=== PATIENT | female | born 1955 | race Caucasian/White ===

== ENCOUNTER 2023-09-07 07:52 | Outpatient (OUT) | payer MEDICARE, MEDICAID, SELFPAY ==
--- NOTE | 2023-09-07 08:14 | P.CN_ITS ---
Consult Note: HPI Data of Consult Patient: new to practice Requesting Physician: Jaida Marte NP Primary Care Provider: JAYDA CRUZ Consult Narrative Reason for consult: establish Narrative: Harmony Gee a pleasant 68 year old female presents for evaluation and management of chronic right hip, upper back and low back pain, starting 30+ years ago. Patient was following with Dr Small. Hx of charcot juan ramon tooth syndrome. Pain today 10/10, feels like tons of razors, reports numbness tingling of bilateral hands and legs. Pain increased with all activity, improved with massage and bath. Patient has no imaging available for review, no recent PT. Reports she tried PT many years ago which increased her pain. Patient currently utilizing ibuprofen, tizanidine, gabapentin 600mg BID, and trazadone. She has failed to benefit from cymbalta, amitriptyline, mobic, and baclofen, failed trigger point injections. Per referral prior lumbar and cervical MRI completed 04/29/21 which showed central canal stenosis at C5-6, severe DDD and facet arthropathy of lumbar spine and multilevel stenosis. cc:: CC: Jaida Marte NP Review of Systems ROS Status of ROS 10 or more systems reviewed and unremark able except as noted in history and below Musculoskeletal Reports: back pain, neck pain and extremity pain Exam Narrative Exam Narrative: extreme hypersensitivity to touch Constitutional Documenting provider has reviewed patient's vital signs: yes Common normals: no apparent distress, oriented x3, healthy appearing, alert and well nourished General appearance: anxious HENMT Common normals: normocephalic, hearing grossly normal bilaterally and moist oral mucous membranes Head and scalp: normocephalic Eye Common normals: PERRL Pupil: PERRL Neck & C-Spine Common normals: full ROM General: normal visual inspection Chest Common normals: inspection of chest normal Respiratory Common normals: normal respiratory effort, no retractions and no use of accessory muscles Back & Pelvis Lumbar spine/lower back: pain with ROM, lumbar spinal tenderness, paraspinal muscle tenderness and straight leg raise negative bilaterally Sacroiliac joints: SI joint(s) abnormal Other: right SIJ positive asif(patricks), gaenslens, thigh thrust, compression test decreased sensation to BLE following multiple dermatome patterns strength 3.5/5 in BLE Extremity Common normals: full ROM Right lower extremity: hip joint Left lower extremity: hip joint Other: decreased sensation to BLE severe pain with internal and external log roll bilaterally Neuro Common normals: oriented x3, CN's II-XII intact bilaterally, moves all extremities, no focal motor deficits and deep tendon reflexes 2+ bilaterally Sensorium/orientation: alert Motor exam: no movement abnormalities noted and strength abnormal (3.5/5 in BUE and BLE ) Psych Common normals: mental status grossly normal, thought process normal, cooperative, affect normal and speech normal Speech: normal speech Thought process: normal thought process Results Additional Findings Additional findings: If on a controlled substance or opioids, I have checked an [place]AR[place] report on this patient and there are no aberrancies noted in the prescribing history.??If on a controlled substance or opioid a drug screen was completed and reviewed within the last year, and if there has not been a drug screen completed we ordered one today to monitor higher risk, state monitored pain medication use. As part of providing excellent, safe, comprehensive care, the following was completed at our patient's visit: 1. A medication reconciliation and review to ensure accurate knowledge of current/active medications, including asking our patients to inform us about any [id number] medications or herbal remedies/nutritional supplements/alternative remedies. 2. A review to specifically ensure our patients have had annual screening for screening for depression, screening for tobacco use, and screening for unhealthy alcohol use. For concerning screenings had a discussion with the patient, provided patient education, and recommended follow-up with primary care provider when appropriate. If patient noted with a risk of falling, they received education on strength, gait, and balance training to prevent future risk of falling. Assessment and Plan Assessment and Plan (1) Lumbar radiculopathy: (2) Lumbar stenosis with neurogenic claudication: (3) Sacroiliitis: (4) Bilateral hip pain: Plan cannot tolerate PT due to severe pain, based on weakness pain pattern imaging of lumbar spine and failure to respond to conservative measures i am recommending bilateral L5-S1 TFESI followed by right SIJ injection under fluoroscopy. risks vs benefits reviewed continue medications through neurology and PCP f/u 2 weeks after injections complete
== END 2023-09-07 07:53 | disposition home or self-care (01) ==
PROVIDERS: PCP Nurse Practitioner; Visit Provider Nurse Practitioner
DX: M54.16 Radiculopathy, lumbar region (principal); M48.062 Spinal stenosis, lumbar region with neurogenic claudication; M46.1 Sacroiliitis, not elsewhere classified; M25.551 Pain in right hip; M25.552 Pain in left hip
CPT/HCPCS: G0463

== ENCOUNTER 2023-09-09 07:31 | Outpatient (OUT) | payer MEDICARE, MEDICAID, SELFPAY ==
--- NOTE | 2023-09-09 07:41 | XR_ITS ---
The [address] [address] Patient Name: ZULEMA GARCIA MRN: [id number] date: 1955 Sex: F Assigned Patient Location: [facility] Current Patient Location: Accession/Order Number: [id number] Exam Date: 09/09/2023 07:50 Report Date: 09/12/2023 07:17 At the request of: TAMAR HARMON Procedure: XR hip AGUS EXAMINATION: XR hip AGUS HISTORY: Bilateral Hip Pain, Lumbar Radiculopathy COMPARISON: No relevant comparison available. FINDINGS: RIGHT FINDINGS: BONES: Normal. No significant arthropathy or acute abnormality. SOFT TISSUES: Negative. No visible soft tissue swelling. OTHER: Negative. LEFT FINDINGS: BONES: Normal. No significant arthropathy or acute abnormality. SOFT TISSUES: Negative. No visible soft tissue swelling. OTHER: Negative. XR/XR hip AGUS IMPRESSION: No acute abnormality of the hips Electronically authenticated by: GAGE JUDD Date: 09/12/2023 07:17
--- NOTE | 2023-09-09 07:41 | XR_ITS ---
The [place] [id number] Patient Name: ZULEMA GARCIA MRN: [id number] date: 1955 Sex: F Assigned Patient Location: [facility] Current Patient Location: [facility] Accession/Order Number: [id number] Exam Date: 09/09/2023 07:50 Report Date: 09/12/2023 11:03 At the request of: TAMAR HARMON Procedure: XR lumbar spine 6V w bending EXAMINATION: XR lumbar spine 6V w bending HISTORY: Bilateral Hip Pain, Lumbar Radiculopathy COMPARISON: No relevant comparison available. FINDINGS: BONES: 10 mm anterolisthesis of L5 in relation S1. Mild levocurvature centered at L2-L3. Mild degenerative spondylosis. Moderate facet osteoarthropathy DISC SPACES: Disc collapse L5-S1 PARASPINOUS: Negative. No paraspinous abnormality is seen. OTHER: increase in anterolisthesis of L5 on S1 to 12 mm with flexion, stable with extension XR/XR lumbar spine 6V w bending IMPRESSION: Grade 2 anterolisthesis of L5 with dynamic instability during flexion Electronically authenticated by: GAGE JUDD Date: 09/12/2023 11:03
== END 2023-09-09 07:32 | disposition home or self-care (01) ==
LOC: RAD 07:33
PROVIDERS: PCP Nurse Practitioner; Visit Provider Nurse Practitioner
DX: M25.551 Pain in right hip (principal); M25.552 Pain in left hip; M54.16 Radiculopathy, lumbar region; M47.816 Spondylosis without myelopathy or radiculopathy, lumbar region
CPT/HCPCS: 72114; 73522

== ENCOUNTER 2023-10-13 09:29 | Observation (INO) | payer MEDICARE, MEDICAID, SELFPAY ==
[2023-10-13] VITALS (23 sets, daily range): BP systolic 107–178; BP diastolic 66–101; PULSE 102–120; TEMP 36.2–36.8; O2SAT 94–97; BMI 21.6; BMI 14.1
--- NOTE | 2023-10-13 09:41 | ECG_ITS ---
The [facility] Test Date: 2023-10-13 Pat Name: ZULEMA GARCIA Department: Room: - Gender: Female Label Tacker: : 1955 Requested By: Bea Palumbo Order Number: [id number] Reading MD: WADE JERRY Measurements Intervals [place] Rate: 104 P: -[id number] UT: -08982 QRS: 97 QRSD: 178 T: 57 QT: 408 QTc: 468 Interpretive Statements 1921 Undetermined regular rhythm (tachycardia) 2330 Nonspecific intraventricular conduction block 7102 Moderate right axis deviation 9150 abnormal ECG Compared to ECG 05/13/2022 12:34:31 Electronically Signed On 10-13-2023 21:30:50 EDT by WADE JERRY
--- NOTE | 2023-10-13 09:46 | ED_ITS ---
HPI HPI - General Adult General Chief complaint: Anxiety Stated complaint: SHORTNESS OF BREATH/ GENERAL WEAKNESS Time Seen by Provider: 10/13/23 09:31 Source: patient Mode of arrival: walk-in Limitations: no limitations History of Present Illness HPI narrative: 68-year-old female presents to the emergency department for chief complaint of difficulty breathing. She is brought in by squad who administered her an aerosol treatment. She states her legs always hurt and she has some sort of a condition and she does not know what it is but it is chronic. She also complains of a sore throat and does not know if she has been taking her medications or not. Related Data Home Medications ?Medication ?Instructions ?Recorded ?Confirmed famotidine 10 mg tablet (Pepcid AC) 10 mg PO DAILY 09/07/23 10/13/23 gabapentin 600 mg tablet 600 mg PO TID 09/07/23 10/13/23 ibuprofen 400 mg tablet 400 mg PO QAM 09/07/23 09/07/23 levothyroxine 75 mcg tablet 75 mcg PO DAILY 09/07/23 10/13/23 (Synthroid) montelukast 10 mg tablet 10 mg PO DAILY 09/07/23 10/13/23 (Singulair) budesonide-formoterol HFA 80 2 puff inhalation Q12H 10/13/23 10/13/23 mcg-4.5 mcg/actuation aerosol inhaler (Symbicort) tizanidine 4 mg tablet 8 mg PO BEDTIME 10/13/23 10/13/23 trazodone 150 mg tablet 150 mg PO BEDTIME 10/13/23 10/13/23 Allergies Allergy/AdvReac Type Severity Reaction Status Date / Time latex Allergy Unknown Rash Verified 09/07/23 08:58 Opioid HPI Opioid Management Most Recent Opioid Data: No Data to Display Review of Systems ROS Narrative A ten point review of systems is negative except as noted above. Exam Narrative Exam Narrative: Nurses note and vital signs reviewed and patient is not hypoxic. General: The patient appears anxious, she is mildly tremorous Skin: Warm, dry, no pallor noted. There is no rash noted. Head: Normocephalic, atraumatic Eye: Normal conjunctiva, no drainage Ears, Nose, Mouth, and Throat: oral mucosa is moist. There appears to be white coating to the posterior soft palate. Uvula midline. Cardiovascular: Regular Rate and Rhythm, mildly tachycardic Respiratory: Patient is in no distress, no accessory muscle use, lungs are clear to auscultation, no wheezing, rales or rhonchi Back: non-tender GI: Soft and nontender Musculoskeletal: The patient has no evidence of calf tenderness, no pitting edema, symmetrical pulses noted bilaterally Neurological: Awake and alert, tremorous Psychiatric: Cooperative Constitutional Vital Signs, click to edit/add: Last Vital Signs Temp 98.2 F 10/13/23 09:35 Pulse 104 H 10/13/23 10:53 Resp 19 10/13/23 10:00 BP 107/75 10/13/23 11:22 Pulse Ox 94 L 10/13/23 12:00 O2 Del Method Room Air 10/13/23 09:35 Course Vital Signs Vital signs: Vital Signs Pulse Rate 105 H 10/13/23 09:34 Respiratory Rate 20 10/13/23 09:34 Blood Pressure 178/86 H 10/13/23 09:34 Pulse Oximetry 97 10/13/23 09:34 Temperature 98.2 F 10/13/23 09:35 Pulse Rate 104 H 10/13/23 10:53 Respiratory Rate 19 10/13/23 10:00 Blood Pressure 107/75 10/13/23 11:22 Pulse Oximetry 94 L 10/13/23 12:00 Oxygen Delivery Method Room Air 10/13/23 09:35 Medical Decision Making MDM Narrative Medical decision making narrative: UTI is identified with WBC of 15,000. She was given IV Rocephin and cultures were ordered. She was also given IV Ativan for anxiety. She will be admitted for observation. Physical exam showed what appears to be a white coating on her posterior soft palate area. This could be thrush. It has made it quite difficult for her to eat or drink anything. Differential Diagnosis Differential Diagnosis: UTI, anxiety, dehydration Lab Data Lab results reviewed: Yes I reviewed the patient's lab results Labs: Lab Results 10/13/23 10/13/23 10/13/23 Range/Units 09:53 09:57 10:30 WBC 15.3 H (4.0-11.0) 10^3/uL RBC 4.97 (4.20-5.40) 10^6/uL Hgb 16.1 H (12.0-16.0) g/dL Hct 48.8 H (36.0-48.0) % MCV 98.2 (81.0-99.0) fL MCH 32.4 (26.7-34.0) pg MCHC 33.0 (29.9-35.2) g/dL RDW 12.8 (11.0-15.0) % Plt Count 251 (150-450) 10^3/uL MPV 9.5 (9.5-13.5) fL Neut % (Auto) 87.9 H (43.0-75.0) % Lymph % (Auto) 4.9 L (20.5-60.0) % [place] % (Auto) 6.1 (1.7-12.0) % Eos % (Auto) 0.1 L (0.9-7.0) % Baso % (Auto) 0.4 (0.2-2.0) % Neut # (Auto) 13.4 H (1.4-6.5) 10^3/uL Lymph # (Auto) 0.8 L (1.2-3.8) 10^3/uL [place] # (Auto) 0.9 H (0.3-0.8) 10^3/uL Eos # (Auto) 0.0 (0.0-0.7) 10^3/uL Baso # (Auto) 0.1 (0.0-0.1) 10^3/uL Abs Immat Gran (auto) 0.09 H (0.00-0.03) 10^3/uL Imm/Tot Granulo (auto) 0.6 H (0.0-0.5) % Sodium 141 (136-145) mmol/L Potassium 3.9 (3.5-5.1) mmol/L Chloride 102 (98-107) mmol/L Carbon Dioxide 29.5 (21.0-32.0) mmol/L Anion Gap 13.4 BUN 8.0 (7.0-18.0) mg/dL Creatinine 0.77 (0.55-1.02) mg/dL Est GFR ( Amer) >60 (>=60) Est GFR (Non-Af Amer) >60 (>=60) BUN/Creatinine Ratio 10.4 Glucose 123 H (74-106) mg/dL Calcium 9.1 (8.5-10.1) mg/dL Troponin I High Sens 32.9 (4.0-51.3) pg/mL Urine Color Yellow (YELLOW) Urine Clarity Clear (CLEAR) Urine pH 6.0 (5.0-9.0) Ur Specific [place] >=1.030 A (1.005-1.025) Urine Protein 100 A (NEG/TRACE) mg/dL Urine Glucose (UA) Negative (NEGATIVE) mg/dL Urine Ketones >=80 A (NEGATIVE) mg/dL Urine Occult Blood Negative (NEGATIVE) Urine Nitrite Negative (NEGATIVE) Urine Bilirubin Small A (NEGATIVE) Urine Urobilinogen 1.0 (0.2-1.0) EU/dL Ur Leukocyte Esterase Moderate A (NEGATIVE) Urine RBC None seen (0-2) #/HPF Urine WBC 10-20 A (NONE SEEN) #/HPF Ur Squamous Epith Cells Few A (NONE/RARE) #/LPF Urine Bacteria Moderate A (NONE SEEN) #/HPF Urine Mucus Moderate A (NONE SEEN) Ur Culture Indicated? Yes Streptococcus Screen Negative Imaging Data Chest x-ray: Radiologist's impression: ITS Impressions Chest X-Ray 10/13/23 09:55 IMPRESSION: 1. No acute cardiopulmonary process. Electronically authenticated by: KETTY MORALES Date: 10/13/2023 10:26 ECG Data Attestation: I personally reviewed and interpreted this ECG as follows: (EKG on my interpretation shows sinus tachycardia with a rate of 104.) Discharge Plan Discharge Chief Complaint: Anxiety Clinical Impression: Urinary tract infection, Leukocytosis, Pharyngitis Patient Disposition: Admitted as Observation Time of Disposition Decision: 13:21 Condition: Good Prescriptions / Home Meds: No Action levothyroxine [Synthroid] 75 mcg tablet 75 mcg PO DAILY gabapentin 600 mg tablet 600 mg PO TID montelukast [Singulair] 10 mg tablet 10 mg PO DAILY famotidine [Pepcid AC] 10 mg tablet 10 mg PO DAILY ibuprofen 400 mg tablet 400 mg PO QAM budesonide-formoterol [Symbicort] 80-4.5 mcg/actuation HFA aerosol inhaler 2 puff INHALATION Q12H tizanidine 4 mg tablet 8 mg PO BEDTIME trazodone 150 mg tablet 150 mg PO BEDTIME Print Language: Upper Sorbian Referrals: JAYDA CRUZ [Primary Care Provider] - 1 week
[2023-10-13] MEDS: LORAZEPAM 2 MG/ML VIAL 0.5 MG IV (09:52)
--- NOTE | 2023-10-13 09:55 | XR_ITS ---
The [address] [address] Patient Name: ZULEMA GARCIA MRN: [id number] date: 1955 Sex: F Assigned Patient Location: ED.MAIN Current Patient Location: ED.MAIN Accession/Order Number: [id number] Exam Date: 10/13/2023 09:50 Report Date: 10/13/2023 10:26 At the request of: RICHARD SMALLS Procedure: XR chest 1V EXAMINATION: XR chest 1V HISTORY: SOB COMPARISON: No relevant comparison available. FINDINGS: LUNGS: Underexpanded lungs. No appreciable infiltrates or nodules. VASCULATURE: No increased pulmonary vasculature. PLEURA: No pneumothorax, effusion, or pleural thickening. CARDIAC: No cardiomegaly or cardiac silhouette abnormality. MEDIASTINUM: No visible mass or adenopathy. BONES: No fracture or visible bone lesion. OTHER: Negative. XR/XR chest 1V IMPRESSION: 1. No acute cardiopulmonary process. Electronically authenticated by: KETTY MORALES Date: 10/13/2023 10:26
--- NOTE | 2023-10-13 09:59 | PC.NURSE ---
Medication given as ordered. Patient apeared to calm down and was joking with senior product engineer and nurse. I asked if she was feeling better and she grabbed her back and started to c/o pain.
[2023-10-13 10:06] LABS: Basophils Absolute Auto 0.1 10^3/uL (0.0-0.1); Basophils Percent Auto 0.4 % (0.2-2.0); Eosinophils Percent Auto 0.1 % (0.9-7.0); Hematocrit 48.8 % (36.0-48.0); Hemoglobin 16.1 g/dL (12.0-16.0); Immature Granulocytes Abs Auto 0.09 10^3/uL (0.00-0.03); Immature Granulocytes Pct Auto 0.6 % (0.0-0.5); Lymphocytes Absolute Auto 0.8 10^3/uL (1.2-3.8); Lymphocytes Percent Auto 4.9 % (20.5-60.0); Mean Corpuscular Hemoglobin 32.4 pg (26.7-34.0); Mean Corpuscular Volume 98.2 fL (81.0-99.0); Mean Platelet Volume 9.5 fL (9.5-13.5); Monocytes Absolute Auto 0.9 10^3/uL (0.3-0.8); Monocytes Percent Auto 6.1 % (1.7-12.0); Neutrophils Absolute Auto 13.4 10^3/uL (1.4-6.5); Neutrophils Percent Auto 87.9 % (43.0-75.0); Platelet Count 251 10^3/uL (150-450); Red Blood Count 4.97 10^6/uL (4.20-5.40); Red Cell Distribution Width 12.8 % (11.0-15.0); White Blood Count 15.3 10^3/uL (4.0-11.0)
[2023-10-13 10:21] LABS: Internal Control Within Normal Limits; Strep A Antigen Screen Negative
[2023-10-13 10:34] LABS: Anion Gap 13.4; BUN Creatinine Ratio 10.4; Calcium 9.1 mg/dL (8.5-10.1); Carbon Dioxide 29.5 mmol/L (21.0-32.0); Chloride 102 mmol/L (98-107); Estimated GFR (African America >60 (>=60); Estimated GFR (Non-African Ame >60 (>=60); Glucose 123 mg/dL (74-106); Potassium 3.9 mmol/L (3.5-5.1); Sodium 141 mmol/L (136-145); Troponin I High Sensitivity 32.9 pg/mL (4.0-51.3)
[2023-10-13 10:36] LABS: Bilirubin Urine SMALL (NEGATIVE); Blood Urine NEGATIVE (NEGATIVE); Clarity Urine CLEAR (CLEAR); Color Urine YELLOW (YELLOW); Glucose Urine UA NEGATIVE (NEGATIVE); Ketones Urine >=80 mg/dL (NEGATIVE); Leukocyte Esterase Urine MODERATE (NEGATIVE); Nitrite Urine NEGATIVE (NEGATIVE); Protein Urine 100 mg/dL (NEG/TRACE); Specific Gravity Urine >=1.030 (1.005-1.025)
[2023-10-13 10:59] LABS: RBC Urine NONE SEEN #/HPF (0-2)
[2023-10-13 11:00] LABS: Bacteria Urine MODERATE #/HPF (NONE SEEN); Mucus Urine MODERATE (NONE SEEN); Squamous Epithelial Cell Urine FEW #/LPF (NONE/RARE)
[2023-10-13 11:04] LABS: Urine Culture Indicated YES
[2023-10-13] MEDS: CEFTRIAXONE 1,000 MG in 0.9 % SODIUM CHLORIDE 50 ML 100 MG IV (11:22)
[2023-10-13] MEDS: KETOROLAC TROMETHAMINE 30 MG/ML VIAL IVP (11:42)
--- NOTE | 2023-10-13 14:51 | PM.HP ---
HPI H&P: HPI History of Present Illness Chief complaint: SHORTNESS OF BREATH/ GENERAL WEAKNESS Narrative: 68-year-old female, who lives by herself presented to ER with multiple problems. She reports sore throat, decreased p.o. intake, cough and shortness of breath for past 1 to 2 weeks. She reports that because of sore throat it is painful for her to swallow and she has not been able to eat normally. She also reports suprapubic discomfort and dysuria for 2 weeks now. She denies fever. Patient is very frail, appears older than her stated age and seems very anxious. She almost jumped out of bed when I touch her feet because her feet hurt due to her history of neuropathy. She is very hard of hearing and its very difficult to communicate with her. Opioid HPI Opioid Management Most Recent Pain and Opioid Data: No Data to Display Review of Systems ROS Status of ROS 10 or more systems reviewed and unremarkable except as noted in history and below PFSH PFS Medical History (Updated 10/13/23 @ 14:57 by Shaikh Michel MD) Peripheral neuropathy ?G62.9 - Polyneuropathy, unspecified (ICD-10) COPD (chronic obstructive pulmonary disease) ?J44.9 - Chronic obstructive pulmonary disease, unspecified (ICD-10) Social History (Updated 10/13/23 @ 14:55 by Shaikh Michel MD) Within the past year, how often did you have a drink containing alcohol: never Within the past year, how many standard drinks containing alcohol did you have on a typical day: 1 or 2 Within the past year, how often did you have six or more drinks on one occasion: never Total score: 0 Score interpretation: A score less than 3 is consistent with normal alcohol consumption. Smoking status: Never smoker Meds Home Medications and Allergies Home Medications ?Medication ?Instructions ?Recorded ?Confirmed ?Type gabapentin 600 mg tablet 600 mg PO BID 09/07/23 10/13/23 History levothyroxine 75 mcg tablet 75 mcg PO DAILY 09/07/23 10/13/23 History (Synthroid) montelukast 10 mg tablet 10 mg PO DAILY 09/07/23 10/13/23 History (Singulair) budesonide-formoterol HFA 80 2 puff inhalation Q12H 10/13/23 10/13/23 History mcg-4.5 mcg/actuation aerosol inhaler (Symbicort) famotidine 20 mg tablet 20 mg PO QAM 10/13/23 10/13/23 History gabapentin 300 mg capsule 300 mg PO DAILY 10/13/23 10/13/23 History tizanidine 4 mg tablet 8 mg PO BEDTIME 10/13/23 10/13/23 History trazodone 150 mg tablet 150 mg PO BEDTIME 10/13/23 10/13/23 History Allergies Allergy/AdvReac Type Severity Reaction Status Date / Time latex Allergy Unknown Rash Verified 09/07/23 08:58 Exam Constitutional Vital Signs, click to edit/add: Last Vital Signs Temp 98.2 F 10/13/23 09:35 Pulse 104 H 10/13/23 10:53 Resp 19 10/13/23 10:00 BP 107/75 10/13/23 11:22 Pulse Ox 94 L 10/13/23 12:00 O2 Del Method Room Air 10/13/23 09:35 Documenting provider has reviewed patient's vital signs: yes Common normals: no apparent distress General appearance: cooperative, comfortable and anxious Nutritional appearance: cachectic and underweight HENPA Common normals: normocephalic and head/scalp atraumatic Head and scalp: normocephalic and atraumatic Other: white exudate noted on tonsillar pillars and post pharyngeal wall. Eye Common normals: conjunctivae normal and no scleral icterus Conjunctiva: conjunctiva(e) normal Respiratory Common normals: normal respiratory effort and clear to auscultation bilaterally Effort & inspection: able to speak in complete sentences Auscultation: clear to auscultation bilaterally Other: Was coughing during exam Cardio Common normals: regular rate, S1 normal heart sound and S2 normal heart sound Rate: regular rate Heart sounds: S1 normal and S2 normal GI Common normals: Normal to inspection, nondistended, normoactive bowel sounds present, soft to palpation, non-tender and no hepatosplenomegaly Palpation: soft and no hepatosplenomegaly Extremity Common normals: no clubbing, cyanosis or edema Neuro Common normals: oriented x3, moves all extremities and no focal motor deficits Psych Common normals: mental status grossly normal, denies hallucinations, denies homicidal ideation and denies suicidal ideation Mood and affect: anxious Results Labs Labs: Short CBC 10/13/23 Range/Units 09:57 WBC 15.3 H (4.0-11.0) 10^3/uL Hgb 16.1 H (12.0-16.0) g/dL Hct 48.8 H (36.0-48.0) % Plt Count 251 (150-450) 10^3/uL BMP 10/13/23 09:57 Sodium 141 Potassium 3.9 Chloride 102 Carbon Dioxide 29.5 BUN 8.0 Creatinine 0.77 Glucose 123 H Calcium 9.1 Urine 10/13/23 Range/Units 10:30 Urine Color Yellow (YELLOW) Urine Clarity Clear (CLEAR) Urine pH 6.0 (5.0-9.0) Ur Specific [place] >=1.030 A (1.005-1.025) Urine Protein 100 A (NEG/TRACE) mg/dL Urine Glucose (UA) Negative (NEGATIVE) mg/dL Assessment and Plan Assessment and Plan (1) Leukocytosis: Assessment and Plan: likely from dehydration, UTI. Started on IVF,rocephine. Qualifiers: Leukocytosis type: leukemoid reaction Qualified Code(s): D72.823 - Leukemoid reaction (2) Urinary tract infection: Assessment and Plan: P/w UTI, started on rocephin. f/u urine cx. Qualifiers: Urinary tract infection type: acute cystitis Hematuria presence: without hematuria Qualified Code(s): N30.00 - Acute cystitis without hematuria (3) Pharyngitis: Assessment and Plan: Sore throat with white patches noted. Possibly thrush. Started on nystatin, fluconazole. Check for covid. Negative for strep. On rocpehin for UTI - that will also cover common bacterial resp pathogens. Qualifiers: Pharyngitis/tonsillitis etiology: unspecified etiology Qualified Code(s): J02.9 - Acute pharyngitis, unspecified (4) COPD (chronic obstructive pulmonary disease): Assessment and Plan: No wheezing/bronchospasm noted. C/w symbicort. Albuterol as needed Qualifiers: COPD type: unspecified COPD Qualified Code(s): J44.9 - Chronic obstructive pulmonary disease, unspecified (5) Peripheral neuropathy: Assessment and Plan: Cw gabapentin Qualifiers: Peripheral neuropathy type: polyneuropathy, unspecified Qualified Code(s): G62.9 - Polyneuropathy, unspecified (6) Oral thrush: Assessment and Plan: Started on nystatin/fluconazole.
--- NOTE | 2023-10-13 16:32 | PC.NURSE ---
pt admitted to icu as overflow. oriented to room and call light. pt appears anxious. pt stated she has been short of breath for 4 days. also states all of my nerve endings are exposed and i have radon poisoning. when asked how pt ambulates, she stated she cannot use an assistive device due to her numbness and tingling in her hands, and she sometimes has to crawl in her appt. pt then states she uses furniture to ambulate. admits to smoking 2 cigarettes every couple of days. also admits to a poor appetite and feels like she had lost weight. bed alarm activated. call light within reach.
--- NOTE | 2023-10-13 16:36 | PC.NURSE ---
pt has white patches on roof of mouth and on the back of her tongue. dr mcginnis notified.
--- NOTE | 2023-10-13 16:46 | PC.NURSE ---
bed alarm ringing, entered room to pt climbing over bottom siderail. pt stated i have to urinate. offered pt bsc, pt agreed due to unsteady gait. assisted pt up to bsc, pt unsteady and weak. pt then asked to go to the bathroom, encouraged to use walker, pt refused. explained to pt, due to high fall risk she should use the bsc, pt then stated i can't go now, asshole. assisted pt back to bed, bed alarm activated.
[2023-10-13] MEDS: FLUCONAZOLE 150 MG TABLET PO (17:12)
[2023-10-13] MEDS: NYSTATIN 500,000 UNIT/5 ML ORAL.SUSP 500000 UNIT PO ×2 (17:12→21:22)
[2023-10-13] MEDS: ENOXAPARIN SODIUM 30 MG/0.3 ML SYRINGE SUBQ (17:12)
[2023-10-13] MEDS: LACTATED RINGER'S SOLUTION 1,000 ML 125 ML IV (17:13)
[2023-10-13 17:39] LABS: Internal Control Within Normal Limits; SARS-CoV-2 Ag NEGATIVE (NEGATIVE)
--- NOTE | 2023-10-13 18:21 | PC.NURSE ---
bed alarm sounding, pt standing up in room, iv pump plugged into wall, attempting to walk to the bathroom. pt unsteady, had crawled over siderails to get out of bed. assisted rest of the way to bathroom. voided and assisted back to bed. pt tells nurse to shut up, i want to go home. attempted to reassure pt, pt stated leave me alone, asshole. bed alarm activated, offered supper, pt refused. pt throwing kleenex on floor, explained to pt a trash bag is on her bedside table for her trash. pt stated asshole. call light within reach.
[2023-10-13] MEDS: ALBUTEROL SULFATE 2.5 MG/3 ML VIAL NEB IH (21:11)
[2023-10-13] MEDS: BUDESONIDE 0.5 MG/2 ML AMPULE NEB IH (21:11)
[2023-10-13] MEDS: TIZANIDINE HCL 4 MG TABLET 8 MG PO (21:21)
[2023-10-13] MEDS: TRAZODONE HCL 50 MG TABLET 150 MG PO (21:21)
[2023-10-13] MEDS: GABAPENTIN 300 MG CAPSULE 600 MG PO (21:22)
[2023-10-14] VITALS (8 sets, daily range): BP systolic 144–159; BP diastolic 69–75; PULSE 94–99; TEMP 36.4–36.6; O2SAT 92–97
[2023-10-14] MEDS: LACTATED RINGER'S SOLUTION 1,000 ML 125 ML IV (01:46)
[2023-10-14] MEDS: ALBUTEROL SULFATE 2.5 MG/3 ML VIAL NEB IH (05:24)
[2023-10-14] MEDS: LEVOTHYROXINE SODIUM 75 MCG TABLET PO (05:34)
[2023-10-14] MEDS: NYSTATIN 500,000 UNIT/5 ML ORAL.SUSP 500000 UNIT PO (05:34)
[2023-10-14] MEDS: OMEPRAZOLE 40 MG CAPSULE.DR PO (05:34)
[2023-10-14 06:01] LABS: Alanine Aminotransferase 16 U/L (14-59); Albumin Globulin Ratio 0.9; Albumin Level 2.4 g/dL (3.4-5.0); Alkaline Phosphatase 65 U/L (46-116); Anion Gap 9.6; Aspartate Amino Transferase 14 U/L (15-37); BUN Creatinine Ratio 22.6; Bilirubin Total 0.4 mg/dL (0.2-1.0); Calcium 8.6 mg/dL (8.5-10.1); Carbon Dioxide 29.5 mmol/L (21.0-32.0); Chloride 105 mmol/L (98-107); Estimated GFR (African America >60 (>=60); Estimated GFR (Non-African Ame >60 (>=60); Globulin 2.8 g/dL; Glucose 127 mg/dL (74-106); Potassium 4.1 mmol/L (3.5-5.1); Sodium 140 mmol/L (136-145); Total Protein 5.2 g/dL (6.4-8.2)
[2023-10-14 07:00] LABS: Hematocrit 42.5 % (36.0-48.0); Mean Corpuscular HGB Conc 32.9 g/dL (29.9-35.2); Mean Corpuscular Hemoglobin 32.1 pg (26.7-34.0); Mean Corpuscular Volume 97.5 fL (81.0-99.0); Mean Platelet Volume 10.1 fL (9.5-13.5); Platelet Count 256 10^3/uL (150-450); Red Blood Count 4.36 10^6/uL (4.20-5.40); Red Cell Distribution Width 12.7 % (11.0-15.0); White Blood Count 13.1 10^3/uL (4.0-11.0)
[2023-10-14 07:36] LABS: Segmented Neut Absolute Manual 11.92 10^3/uL (1.4-6.5)
[2023-10-14 07:37] LABS: Band Neutrophils Absolute 0.3 10^3/uL (0.0-0.3); Lymphocytes Absolute Manual 0.91 10^3/uL (1.20-3.80)
[2023-10-14] MEDS: GABAPENTIN 300 MG CAPSULE 600 MG PO (09:14)
[2023-10-14] MEDS: MONTELUKAST SODIUM 10 MG TABLET PO (09:14)
--- NOTE | 2023-10-14 10:01 | PM.DS1 ---
DS: Providers Provider Date of admission: 10/13/23 15:59 Primary care physician: JAYDA CRUZ Admitting clinician: Shaikh Michel Attending physician on admission: Shaikh Michel Consults: 10/13/23 Consult to Dietitian Routine Reason for consultation: weight loss Has provider been notified: No 10/13/23 13:23 Occupational Therapy Eval and Treat Routine Reason for consultation: Ambulatory dysfunction/weakness Physical Therapy Eval and Treat Routine Reason for consultation: Ambulatory dysfunction/weakness Attending physician on discharge: Shaikh Michel Discharging clinician: Shaikh Michel Anticipated date of discharge: 10/14/23 DS: Diagnosis Discharge Diagnosis (1) Leukocytosis: Assessment and plan: Likely due to UTI and dehydration. Improved. Qualifiers: Leukocytosis type: leukemoid reaction Qualified Code(s): D72.823 - Leukemoid reaction (2) Urinary tract infection: Assessment and plan: Patient presented with dysuria and suprapubic discomfort with abnormal UA. She was treated with IV Rocephin with improvement in her symptoms Qualifiers: Hematuria presence: without hematuria Urinary tract infection type: acute cystitis Qualified Code(s): N30.00 - Acute cystitis without hematuria (3) Pharyngitis: Assessment and plan: Patient reports sore throat and oropharyngeal dysphagia. She likely has oropharyngeal and possibly esophageal candidiasis for which she was treated with fluconazole. She feels a little bit better she also received IV Rocephin for UTI which would also typically cover common respiratory bacterial pathogen. She tested negative for strep and COVID Qualifiers: Pharyngitis/tonsillitis etiology: unspecified etiology Qualified Code(s): J02.9 - Acute pharyngitis, unspecified (4) COPD (chronic obstructive pulmonary disease): Assessment and plan: No evidence of bronchospasm. Continue with home medications Qualifiers: COPD type: unspecified COPD Qualified Code(s): J44.9 - Chronic obstructive pulmonary disease, unspecified (5) Peripheral neuropathy: Assessment and plan: Continue with gabapentin Qualifiers: Peripheral neuropathy type: polyneuropathy, unspecified Qualified Code(s): G62.9 - Polyneuropathy, unspecified (6) Oral thrush: Assessment and plan: Suspect associated esophageal candidiasis. Will need outpatient EGD. Will discharge her on oral fluconazole for 14 days as I suspect she likely has esophageal candidiasis (7) Severe malnutrition: Assessment and plan: Severe in caloric malnutrition with BMI of only 14, with evidence of muscle wasting, loss of subcutaneous tissue. She will benefit from outpatient evaluation to determine the underlying etiology as well as nutrition consult to help improve her nutritional status DS: Summary Hospital Course Hospital Course: 68-year-old female was originally admitted for UTI, oropharyngeal dysphagia/odynophagia with signs and symptoms of dehydration, severe protein caloric malnutrition with BMI of only 14. She was treated with IV hydration and IV Rocephin for UTI. She was also treated with oral fluconazole for oropharyngeal thrush with high suspicion for esophageal candidiasis resulting in oropharyngeal dysphagia/odynophagia. She also was treated with oral nystatin. Earlier today, she feels better compared to her arrival and is medically stable for discharge. We will discharge her on oral Ceftin along with oral fluconazole. She will benefit from outpatient evaluation by nutrition for severe protein caloric malnutrition along with possible GI evaluation for suspected esophageal candidiasis Status at Discharge Overall status at discharge: patient is back to baseline Time Spent with Patient Time attestation: Total time spent providing and/or coordinating discharge services: Exam Constitutional Vital Signs, click to edit/add: Last Vital Signs Temp 97.9 F 10/14/23 07:43 Pulse 99 H 10/14/23 05:24 Resp 22 H 10/14/23 05:24 BP 159/75 H 10/14/23 07:26 Pulse Ox 97 10/14/23 07:26 O2 Del Method Room Air 10/14/23 09:00 Documenting provider has reviewed patient's vital signs: yes Common normals: no apparent distress and oriented x3 General appearance: cooperative, frail appearing and appears older than stated age Nutritional appearance: cachectic and underweight [facility] Common normals: normocephalic and head/scalp atraumatic Head and scalp: normocephalic and atraumatic Other: Bitemporal wasting noted. Loss of subcutaneous tissue. Eye Common normals: conjunctivae normal and no scleral icterus Conjunctiva: conjunctiva(e) normal Respiratory Common normals: normal respiratory effort and clear to auscultation bilaterally Effort & inspection: able to speak in complete sentences Auscultation: clear to auscultation bilaterally Cardio Common normals: regular rate, S1 normal heart sound and S2 normal heart sound Rate: regular rate Heart sounds: S1 normal and S2 normal GI Common normals: Normal to inspection, nondistended, normoactive bowel sounds present, soft to palpation, non-tender and no hepatosplenomegaly Palpation: soft and no hepatosplenomegaly Extremity Common normals: no clubbing, cyanosis or edema Neuro Common normals: oriented x3, moves all extremities and no focal motor deficits Psych Common normals: mental status grossly normal, denies hallucinations, denies homicidal ideation and denies suicidal ideation DS: Data Data Completed and Pending Labs on day of discharge: Labs from last 24 hours 10/14/23 10/13/23 10/13/23 05:10 17:20 10:30 WBC 13.1 H RBC 4.36 Hgb 14.0 Hct 42.5 MCV 97.5 MCH 32.1 MCHC 32.9 RDW 12.7 Plt Count 256 MPV 10.1 Neut % (Auto) Lymph % (Auto) [place] % (Auto) Eos % (Auto) Baso % (Auto) Neut # (Auto) Lymph # (Auto) [place] # (Auto) Eos # (Auto) Baso # (Auto) Abs Immat Gran (auto) Seg Neuts % (Manual) 91.0 H Band Neutrophils % 2.0 Lymphocytes % (Manual) 7.0 L Monocytes % (Manual) 0.0 L Eosinophils % (Manual) 0.0 L Basophils % (Manual) 0.0 L Imm/Tot Granulo (auto) Neutrophils # (Manual) 11.92 H Band Neutrophils # 0.3 Lymphocytes # (Manual) 0.91 L Monocytes # (Manual) 0.00 L Eosinophils # (Manual) 0.00 Basophils # (Manual) 0.00 Sodium 140 Potassium 4.1 Chloride 105 Carbon Dioxide 29.5 Anion Gap 9.6 BUN 12.0 Creatinine 0.53 L Est GFR ( Amer) >60 Est GFR (Non-Af Amer) >60 BUN/Creatinine Ratio 22.6 Glucose 127 H Calcium 8.6 Total Bilirubin 0.4 AST 14 L ALT 16 Alkaline Phosphatase 65 Troponin I High Sens Total Protein 5.2 L Albumin 2.4 L Globulin 2.8 Albumin/Globulin Ratio 0.9 Urine Color Yellow Urine Clarity Clear Urine pH 6.0 Ur Specific [place] >=1.030 A Urine Protein 100 A Urine Glucose (UA) Negative Urine Ketones >=80 A Urine Occult Blood Negative Urine Nitrite Negative Urine Bilirubin Small A Urine Urobilinogen 1.0 Ur Leukocyte Esterase Moderate A Urine RBC None seen Urine WBC 10-20 A Ur Squamous Epith Cells Few A Urine Bacteria Moderate A Urine Mucus Moderate A Ur Culture Indicated? Yes SARS-CoV-2 Ag (CV2AG) Negative Streptococcus Screen 10/13/23 10/13/23 09:57 09:53 WBC 15.3 H RBC 4.97 Hgb 16.1 H Hct 48.8 H MCV 98.2 MCH 32.4 MCHC 33.0 RDW 12.8 Plt Count 251 MPV 9.5 Neut % (Auto) 87.9 H Lymph % (Auto) 4.9 L [place] % (Auto) 6.1 Eos % (Auto) 0.1 L Baso % (Auto) 0.4 Neut # (Auto) 13.4 H Lymph # (Auto) 0.8 L [place] # (Auto) 0.9 H Eos # (Auto) 0.0 Baso # (Auto) 0.1 Abs Immat Gran (auto) 0.09 H Seg Neuts % (Manual) Band Neutrophils % Lymphocytes % (Manual) Monocytes % (Manual) Eosinophils % (Manual) Basophils % (Manual) Imm/Tot Granulo (auto) 0.6 H Neutrophils # (Manual) Band Neutrophils # Lymphocytes # (Manual) Monocytes # (Manual) Eosinophils # (Manual) Basophils # (Manual) Sodium 141 Potassium 3.9 Chloride 102 Carbon Dioxide 29.5 Anion Gap 13.4 BUN 8.0 Creatinine 0.77 Est GFR ( Amer) >60 Est GFR (Non-Af Amer) >60 BUN/Creatinine Ratio 10.4 Glucose 123 H Calcium 9.1 Total Bilirubin AST ALT Alkaline Phosphatase Troponin I High Sens 32.9 Total Protein Albumin Globulin Albumin/Globulin Ratio Urine Color Urine Clarity Urine pH Ur Specific [place] Urine Protein Urine Glucose (UA) Urine Ketones Urine Occult Blood Urine Nitrite Urine Bilirubin Urine Urobilinogen Ur Leukocyte Esterase Urine RBC Urine WBC Ur Squamous Epith Cells Urine Bacteria Urine Mucus Ur Culture Indicated? SARS-CoV-2 Ag (CV2AG) Streptococcus Screen Negative Discharge Plan Discharge Disposition: Home, Self-Care Condition: Good Discharge Medications: New cefuroxime axetil 500 mg tablet 500 mg PO BID 7 Days Qty: 14 0RF fluconazole 200 mg tablet 200 mg PO DAILY Qty: 14 0RF Continued levothyroxine [Synthroid] 75 mcg tablet 75 mcg PO DAILY gabapentin 600 mg tablet 600 mg PO BID montelukast [Singulair] 10 mg tablet 10 mg PO DAILY budesonide-formoterol [Symbicort] 80-4.5 mcg/actuation HFA aerosol inhaler 2 puff INHALATION Q12H tizanidine 4 mg tablet 8 mg PO BEDTIME Rx Instructions: TAKE 1 & 1/2 - 2 (TWO) tablets BY MOUTH AT BEDTIME trazodone 150 mg tablet 150 mg PO BEDTIME famotidine 20 mg tablet 20 mg PO QAM gabapentin 300 mg capsule 300 mg PO DAILY Rx Instructions: IN THE AFTERNOON Activity: increase activity as tolerated Diet: advance to your usual diet Print Language: Italian Patient Instructions: Cefuroxime (By mouth), Fluconazole (By mouth), Oral Candidiasis (GEN) Forms: Portal Instructions Follow Up Appointments: Jayda Cruz CNP, Tuesday at 3:20 [address] [place], [place] [phone]
--- NOTE | 2023-10-14 10:27 | CM.NOTE ---
Rounds made with Dr. Pearson. Testing reviewed by Dr. Pearson with [facility]. Discharge to home. [facility] in agreement with discharge.
--- NOTE | 2023-10-14 10:40 | SWNOTE1 ---
Medicare Outpatient Observation Notice reviewed and discussed with patient. Pt. verbalized understanding and signed the form. Original given to patient and copy placed in patient?s chart. Pt is sitting up dressed and on the edge of bed, waiting for her ride. Pt was calling her ride when SW came in room, nurse was in room as well. Her friend answered phone and told pt she was getting around and will be there to get her shortly. SW checked over PT/OT notes and pt did well. No anticipated discharge needs.
--- NOTE | 2023-10-14 11:31 | SWNOTE1 ---
SW had to call and set up trips as pt's friend is not answering any more. SW called and trips will be here in 15-20 minutes. SW let stenographer secretary in ICU know to have pt down there in 15-20 mins.
--- NOTE | 2023-10-14 11:37 | PC.NURSE ---
attempted several times to contact diana per pts request for ride. diana texted pt and said she is having can problems. transportation home arranged per sw. discharge instructions explained to pt, pt verbalized i know my meds.
--- NOTE | 2023-10-14 11:44 | PC.NURSE ---
ambulated to exit with staff. discharged to trips for transportation home.
--- NOTE | 2023-10-17 14:56 | CM.DCFOLLOWU ---
1st attempt 10/17/23, no answer
--- NOTE | 2023-10-18 13:06 | CM.DCFOLLOWU ---
2nd attempt 10/18/23, no answer
--- NOTE | 2023-10-19 14:12 | CM.DCFOLLOWU ---
3rd attempt 10/19/23, no answer
== END 2023-10-14 11:40 | disposition home or self-care (01) ==
LOC: ER 13:30 → ICU 16:10
PROVIDERS: Admitting Provider Internal Medicine; Emergency Provider Emergency Medicine; PCP Nurse Practitioner; Visit Provider Internal Medicine
DX: N30.00 Acute cystitis without hematuria (principal); J02.9 Acute pharyngitis, unspecified; E86.0 Dehydration; G62.9 Polyneuropathy, unspecified; B37.0 Candidal stomatitis; E43 Unspecified severe protein-calorie malnutrition; Z68.1 Body mass index [BMI] 19.9 or less, adult; J44.9 Chronic obstructive pulmonary disease, unspecified; D72.823 Leukemoid reaction; Z79.899 Other long term (current) drug therapy; Z20.822 Contact with and (suspected) exposure to COVID-19
CPT/HCPCS: 36415; 71045; 80048; 80053; 81001; 84484; 85007; 85025; 85027; 87070; 87086; 87811; 87880; 93005; 94640; 94761; 96365; 96372; 96375; 97161; 97165; 99285; G0378; J0696; J1650; J1885; J2060

== ENCOUNTER 2024-02-13 08:37 | Emergency (ER) | payer MEDICARE, MEDICAID, SELFPAY ==
[2024-02-13 08:45] VITALS: BP 161/90; PULSE 104; TEMP 36.6; O2SAT 96; BMI 12.9
[2024-02-13] MEDS: TRAMADOL HCL 50 MG TABLET PO (09:08)
[2024-02-13] MEDS: ACETAMINOPHEN 500 MG TABLET PO (09:08)
--- NOTE | 2024-02-13 09:14 | XR_ITS ---
The [address] [address] Patient Name: ZULEMA GARCIA MRN: [id number] date: 1955 Sex: F Assigned Patient Location: ER Current Patient Location: ER Accession/Order Number: [id number] Exam Date: 02/13/2024 09:32 Report Date: 02/13/2024 09:58 At the request of: GLADYS COREA Procedure: XR elbow RT min 3V EXAM: XR elbow RT min 3V HISTORY: pain COMPARISON: None. TECHNIQUE: 3 views of the right elbow. FINDINGS: No acute fracture or dislocation. No significant joint effusion. No radiodense foreign body or appreciable soft tissue gas. XR/XR elbow RT min 3V IMPRESSION: No acute osseous abnormality. Electronically authenticated by: STEPHANIE MCCOY Date: 02/13/2024 09:58
--- NOTE | 2024-02-13 09:14 | XR_ITS ---
[address] [address] Patient Name: ZULEMA GARCIA MRN: [id number] date: 1955 Sex: F Assigned Patient Location: ER Current Patient Location: ED.MAIN Accession/Order Number: [id number] Exam Date: 02/13/2024 09:32 Report Date: 02/13/2024 10:26 At the request of: GLADYS COREA Procedure: XR wrist RT min 3V PROCEDURE: XR wrist RT min 3V COMPARISON: None. HISTORY: pain FINDINGS: BONES:No fracture, acute abnormality, or significant arthropathy. SOFT TISSUES:Negative. No visible soft tissue swelling. EFFUSION:None visible. OTHER: Negative. XR/XR wrist RT min 3V IMPRESSION: No acute radiographic abnormality Electronically authenticated by: GAGE JUDD Date: 02/13/2024 10:26
--- NOTE | 2024-02-13 09:16 | ED.GENADUL1 ---
HPI HPI - General Adult General Chief complaint: Extremity Injury, Upper Stated complaint: SORE ARM Time Seen by Provider: 02/13/24 08:53 Source: patient Mode of arrival: walk-in Limitations: no limitations History of Present Illness HPI narrative: Patient is a 68-year-old female who is presenting to the ER today with chief complaint of right upper arm pain. Last evening patient's right arm was stuck in between her headboard and the mattress. Patient was able to eventually get the mattress moved slightly that she could pick out her right arm. She did not have any significant twisting motion from her right shoulder, elbow, wrist, this is more of a crush injury. Patient is right-hand dominant. Patient took her normal 2 Advil this morning that she normally takes for inflammation as she explains that her mild line she is do not protecting the nerves and she takes Advil daily for anti-inflammatory properties. Patient came to the ER with her friend. Patient has not used any ice. Patient has no other acute complaints at this time. All systems are negative except as noted/marked. All systems reviewed and otherwise negative. Nurses note and vital signs reviewed and patient is not hypoxic. General: The patient appears mild distress secondary to pain and anxiety. Patient is resting uncomfortably on cart. Patient is not toxic, lethargic, or listless Skin: Warm, dry, no pallor noted. There is no rash noted. No petechiae, purpura. Head: Normocephalic, atraumatic Eye: Normal conjunctiva, no drainage, EOMI. PERRL Ears, Nose, Mouth, and Throat: oral mucosa is moist. Patient bilateral TM shows no erythema, perforation or bulging. Patient has 2 small any air-fluid levels behind left TM, patient wanted me to look behind the left TM because it feels itchy. Nares patent. Mouth without vesicles. Cardiovascular: Regular Rate and Rhythm, no murmur, gallop, rub Respiratory: Patient is in no distress, no accessory muscle use, lungs are clear to auscultation, no wheezing, rales or rhonchi Back: non-tender, no CVA tenderness bilaterally to percussion. No CT LS midline pain GI: no tenderness to palpation, no masses appreciated. No rebound, guarding, or rigidity noted. No distention Musculoskeletal: Patient has full range of motion of all of the extremities except to her right upper extremity. Patient does have flexion extension abduction with mild pain to the right shoulder, patient has no significant tenderness palpation to the right upper arm over humerus. Patient has mild to moderate pain with supination pronation flexion extension of right elbow, no obvious fracture or dislocation. Patient has moderate tenderness to palpation with flexion extension abduction adduction of right wrist, no pain to anatomical snuffbox. Patient has minimal ecchymosis in the webspace between the right thumb and right index finger. Mild tenderness palpation to bony prominences of the right hand. No obvious signs of fracture or dislocation. Patient is very histrionic and dramatic with her physical exam, patient is very anxious. However she has good range of motion of all joints with no obvious signs of acute fracture or dislocation, x-rays will be done. Her left upper extremity lower extremities show no motor, sensory, or focal neurological deficits Neurological: A&O x4, normal speech Psychiatric: Cooperative Related Data Home Medications ?Medication ?Instructions ?Recorded ?Confirmed gabapentin 600 mg tablet 600 mg PO BID 09/07/23 10/13/23 levothyroxine 75 mcg tablet 75 mcg PO DAILY 09/07/23 10/13/23 (Synthroid) montelukast 10 mg tablet 10 mg PO DAILY 09/07/23 10/13/23 (Singulair) budesonide-formoterol HFA 80 2 puff inhalation Q12H 10/13/23 10/13/23 mcg-4.5 mcg/actuation aerosol inhaler (Symbicort) famotidine 20 mg tablet 20 mg PO QAM 10/13/23 10/13/23 gabapentin 300 mg capsule 300 mg PO DAILY 10/13/23 10/13/23 tizanidine 4 mg tablet 8 mg PO BEDTIME 10/13/23 10/13/23 trazodone 150 mg tablet 150 mg PO BEDTIME 10/13/23 10/13/23 Previous Rx's ?Medication ?Instructions ?Recorded cefuroxime axetil 500 mg tablet 500 mg PO BID 7 days #14 tabs 10/14/23 fluconazole 200 mg tablet 200 mg PO DAILY #14 tabs 10/14/23 Allergies Allergy/AdvReac Type Severity Reaction Status Date / Time latex Allergy Unknown Rash Verified 02/13/24 08:50 adhesive tape AdvReac Mild Rash Verified 02/13/24 08:50 Opioid HPI Opioid Management Most Recent Opioid Data: Last Pain Scale 6 02/13/24 09:12 02/13/24 Last MAR Pain Assessment 02/13/24 09:08 Last ORT Total Score 0 10/13/23 16:11 10/13/23 Last ORT Risk Category Low Risk 10/13/23 16:11 10/13/23 PFSH PFS Medical History (Updated 02/13/24 @ 10:06 by Donis Lechuga MD) Oral thrush ?B37.0 - Candidal stomatitis (ICD-10) Pharyngitis ?J02.9 - Acute pharyngitis, unspecified (ICD-10) Leukocytosis ?D72.829 - Elevated white blood cell count, unspecified (ICD-10) Urinary tract infection ?N39.0 - Urinary tract infection, site not specified (ICD-10) Muscle pain ?M79.10 - Myalgia, unspecified site (ICD-10) Radon exposure ?X39.01XA - Exposure to radon, initial encounter (ICD-10) Peripheral neuropathy ?G62.9 - Polyneuropathy, unspecified (ICD-10) COPD (chronic obstructive pulmonary disease) ?J44.9 - Chronic obstructive pulmonary disease, unspecified (ICD-10) Social History (Updated 10/13/23 @ 16:31 by Tiffany Benitez) Within the past year, how often did you have a drink containing alcohol: never Within the past year, how many standard drinks containing alcohol did you have on a typical day: 1 or 2 Within the past year, how often did you have six or more drinks on one occasion: never Total score: 0 Score interpretation: A score less than 3 is consistent with normal alcohol consumption. Smoking status: Current some day smoker What tobacco products do you use: cigarettes Cigarettes per day: 2 Highest level of school completed/degree received: high school graduate Little interest or pleasure in doing things: not at all Feeling down, depressed, or hopeless: not at all Exam Constitutional Vital Signs, click to edit/add: Last Vital Signs Temp 97.8 F 02/13/24 08:45 Pulse 104 H 02/13/24 08:45 Resp 16 02/13/24 08:45 BP 161/90 H 02/13/24 08:45 Pulse Ox 96 02/13/24 08:45 O2 Del Method Room Air 02/13/24 08:45 Course Vital Signs Vital signs: Vital Signs Temperature 97.8 F 02/13/24 08:45 Pulse Rate 104 H 02/13/24 08:45 Respiratory Rate 16 02/13/24 08:45 Blood Pressure 161/90 H 02/13/24 08:45 Pulse Oximetry 96 02/13/24 08:45 Oxygen Delivery Method Room Air 02/13/24 08:45 Temperature 97.8 F 02/13/24 08:45 Pulse Rate 104 H 02/13/24 08:45 Respiratory Rate 16 02/13/24 08:45 Blood Pressure 161/90 H 02/13/24 08:45 Pulse Oximetry 96 02/13/24 08:45 Oxygen Delivery Method Room Air 02/13/24 08:45 Medical Decision Making MDM Narrative Medical decision making narrative: Patient was given ice to her right elbow and wrist. Patient was given Tylenol and Ultram. Patient took 2 Advil at home. Patient will do x-ray of the right elbow and wrist. Patient's right elbow and wrist x-ray showed no acute fracture dislocation or acute abnormality. Patient was placed in Syed wrap, wrist splint, and sling. Education on RICE therapy was discussed at bedside and on discharge paperwork. Patient will follow-up with PCP. No questions at discharge. Procedure note Syed wrap was placed to the right elbow, Velcro wrist splint was placed to the right wrist, patient was given a right upper extremity sling. Splint was assisted with . the patient was neurovascularly intact before and after the splint was placed. the affected bones/injured area had proper alignment in a splint. Education on splint care at home was given at bedside. Patient and family have no questions at discharge. Discharge Plan Discharge Chief Complaint: Extremity Injury, Upper Clinical Impression: Elbow pain, right, Pain in right wrist, Crushing injury of arm, right Patient Disposition: Home, Self-Care Time of Disposition Decision: 10:05 Condition: Fair Prescriptions / Home Meds: No Action levothyroxine [Synthroid] 75 mcg tablet 75 mcg PO DAILY gabapentin 600 mg tablet 600 mg PO BID montelukast [Singulair] 10 mg tablet 10 mg PO DAILY budesonide-formoterol [Symbicort] 80-4.5 mcg/actuation HFA aerosol inhaler 2 puff INHALATION Q12H tizanidine 4 mg tablet 8 mg PO BEDTIME Rx Instructions: TAKE 1 & 1/2 - 2 (TWO) tablets BY MOUTH AT BEDTIME trazodone 150 mg tablet 150 mg PO BEDTIME famotidine 20 mg tablet 20 mg PO QAM gabapentin 300 mg capsule 300 mg PO DAILY Rx Instructions: IN THE AFTERNOON cefuroxime axetil 500 mg tablet 500 mg PO BID 7 Days Qty: 14 0RF fluconazole 200 mg tablet 200 mg PO DAILY Qty: 14 0RF Print Language: Icelandic Instructions: Wrist Injury (ED), How to Use a Sling (ED), P.R.I.C.E. Treatment (ED), Arm Pain (ED), Crush Injury (ED) Additional Instructions: Use ice 20 minutes on, 20 minutes off. Do not use heat. Use your Syed wrap, wrist splint for the next 3 to 5 days as needed. Only use your shoulder sling for the next 2 or 3 days, do not use it longer than that so to you will not get frozen shoulder or cause other injuries to the shoulder. Alternate Tylenol and either Motrin, Advil, or ibuprofen every 4 hours to help with pain. Maximum dose of Tylenol is 3000 mg a day. Maximum dose of either Motrin, Advil, or ibuprofen is 2400 mg a day. Follow-up with your PCP if any other acute concerns Referrals: JAYDA CRUZ [Primary Care Provider] - 1 week
== END 2024-02-13 10:29 | disposition home or self-care (01) ==
PROVIDERS: Emergency Provider Emergency Medicine; PCP Nurse Practitioner
DX: S47.1XXA Crushing injury of right shoulder and upper arm, initial encounter (principal); W23.1XXA Caught, crushed, jammed, or pinched between stationary objects, initial encounter; M25.521 Pain in right elbow; M25.531 Pain in right wrist; F17.210 Nicotine dependence, cigarettes, uncomplicated
CPT/HCPCS: 73080; 73110; 99283

== ENCOUNTER 2024-06-30 11:43 | Emergency (ER) | payer MEDICARE, MEDICAID, SELFPAY ==
[2024-06-30] VITALS (24 sets, daily range): BP systolic 127–155; BP diastolic 73–87; PULSE 88–141; TEMP 36.4; O2SAT 89–100; BMI 18.1
--- NOTE | 2024-06-30 11:57 | ECG_ITS ---
The [facility] Test Date: 2024-06-30 Pat Name: ZULEMA GARCIA Department: Room: - Gender: Female Clinical Nurse Reviewer: : 1955 Requested By: 1030 Order Number: [id number] Reading MD: DAVID WALTER M.D. Measurements Intervals [place] Rate: 137 P: -[id number] TX: 113 QRS: 108 QRSD: 102 T: -71 QT: 378 QTc: 458 Interpretive Statements Sinus tachycardia RIGHT ATRIAL ENLARGEMENT nonspecific ST segment changes 7100 Abnormal right axis deviation 9150 abnormal ECG Compared to ECG 10/13/2023 09:39:34 No significant changes Electronically Signed On 07-01-2024 12:39:55 EDT by DAVID WALTER M.D.
--- OUTSIDE RECORDS SUMMARY | 2024-06-30 11:57 | XMS_ITS | CCD ---
Author Organization [facility] Care Team Providers Care Outside Installer Apprentice Name Role Phone Jose Quigley Admitting Unavailable Jose Quigley Attending Unavailable Sammi Lopez Primary Care Unavailable MIGUEL A ., TESFAYE Admitting Unavailable MIGUEL A ., TESFAYE Attending Unavailable MIGUEL A ., TESFAYE Consulting Unavailable SKY MEJÍA Attending Unavailable PALUMBO, JAYDA J Referring Unavailable PALUMBO, JAYDA J Primary Care Unavailable PALUMBO, JAYDA J Referring Unavailable PALUMBO, JAYDA J Primary Care Unavailable PALUMBO, JAYDA J Attending Unavailable PALUMBO, JAYDA J Referring Unavailable PALUMBO, JAYDA J Primary Care Unavailable PALUMBO, JAYDA J Attending Unavailable PALUMBO, JAYDA J Referring Unavailable PALUMBO, JAYDA J Primary Care Unavailable PALUMBO, JAYDA J Attending Unavailable PALUMBO, JAYDA J Referring Unavailable PALUMBO, JAYDA J Primary Care Unavailable Palumbo COMPOUNDING ASSISTANT-FOUNTAIN MANAGER, Jayda J Primary Care Provid er Palumbo COMPOUNDING ASSISTANT-FOUNTAIN MANAGER, Jayda J Primary Care Provid er Allergies Allergy Classification Reported Allergen(s) Allergy Type Date of Onset Reaction(s) Facility (3 sources) Codeine; Translations: [CODEINE] Drug Allergy 7 [facility] Repository (1 source) Latex Drug allergy (disorder) 9 [facility] Repository (1 source) Latex Drug allergy (disorder) 3 [facility] Repository (10 sources) Baclofen; Translations: [BACLOFEN] Drug Allergy 4 Other (See Comments) [facility] Repository (15 sources) Cephalexin; Translations: [CEPHALEXIN] Drug Allergy 9 [facility] Repository (15 sources) natural latex rubber; Translations: [LATEX, NATURAL RUBBER] Propensity to adverse reactions to drug (disorder) 8 [facility] Repository (13 sources) Codeine Drug Allergy 7 [facility] Medications Current Medications Medication Drug Class(es) Dates Sig (Normalized) Sig (Original) [id number] 200 actuat albuterol 0.09 mg/actuat metered dose inhaler (13 sources) beta2-Adrenergic Agonist Start: 05-04-2022 take 2 puff(s) by mouth every four hours albuterol (PROVENTIL HFA;VENTOLIN HFA) 90 mcg/actuation inhaler INHALE 2 PUFFS BY MOUTH EVERY 4 HOURS IF NEEDED FOR SHORTNESS OF BREATH 05/04/2022 Active alendronic acid 35 mg oral tablet (7 sources) Bisphosphonate Start: 09-27-2022 End: 07-28-2023 take 1 tablet by mouth in the morning alendronate (FOSAMAX) 35 mg tablet Indications: Age-related osteoporosis without current pathological fracture take 1 tablet by mouth every 7 days take IN THE MORNING WITH WATER ON AN EMPTY STOMACH, NOTHING ELSE BY MOUTH AND REMAIN UPRIGHT FOR 30 MINUTES 12 tablet 2 05/26/2023 Active azelastine hydrochloride 0.137 mg/actuat metered dose nasal spray (13 sources) Histamine-1 Receptor Antagonist take 1 spray(s) nasal route in the morning azelastine (ASTELIN) 137 mcg (0.1 %) nasal spray Administer 1 spray into each nostril in the morning and 1 spray before bedtime. Use in each nostril as directed. Active Budesonide / formoterol (14 sources) Corticosteroid, beta2-Adrenergic Agonist Start: 07-28-2023 take 2 puff(s) by inhalation in the morning budesonide-formot Stacey (SYMBICORT) 80-4.5 mcg/actuation inhaler Indications: COPD, severe ([facility]) Inhale 2 puffs in the morning and 2 puffs before bedtime. 10.2 g 12 07/28/2023 Active Start: 06-25-2022 End: 07-28-2023 take 2 puff(s) by inhalation in the morning budesonide-formoteroL (SYMBICORT) 160-4.5 mcg/actuation inhaler Inhale 2 puffs in the morning and 2 puffs before bedtime. 06/25/2022 07/28/2023 Discontinued Start: 06-25-2022 take 2 puff(s) by in halation in the morning budesonide-formoteroL (SYMBICORT) 160-4.5 mcg/actuation inhaler Inhale 2 puffs in the morning and 2 puffs before bedtime. 06/25/2022 Active Start: 06-25-2022 take 2 puff(s) by in halation in the morning budesonide-formoteroL (SYMBICORT) 160-4.5 mcg/actuation inhaler Inhale 2 puffs in the morning and 2 puffs before bedtime. 0 06/25/2022 Active cefuroxime 500 mg oral tablet (4 sources) Cephalosporin Antibacterial Start: 10-14-2023 ceFUROxime (CEFTIN) 500 mg tablet Take 1 tablet (500 mg total) by mouth. 10/14/2023 Active famotidine 20 mg oral tablet (14 sources) Histamine-2 Receptor Antagonist Start: 09-29-2021 End: 07-28-2023 take 1 tablet by mouth in the morning famotidine (PEPCID) 20 mg tablet Indications: Gastroesophageal reflux disease without esophagitis Take 1 tablet (20 mg total) by mouth in the morning. 90 tablet 1 07/28/2023 Active fluticasone propionate 0.05 mg/actuat metered dose nasal spray (13 sources) Corticosteroid Start: 09-21-2021 take 2 spray(s) nasal route in the morning fluticasone propionate (FLONASE) 50 mcg/actuation nasal spray Indications: Seasonal allergic rhinitis, unspecified trigger Administer 2 sprays into each nostril in the morning. 16 g 6 09/21/2021 Active ibuprofen 400 mg oral tablet (13 sources) Nonsteroidal Anti-inflammatory Drug take 1 tablet by mouth every six hours as needed for pain ibuprofen (MOTRIN) 400 mg tablet Take 1 tablet (400 mg total) by mouth every 6 (six) hours as needed for pain. Active levalbuterol 0.417 mg/ml inhalation solution (13 sources) beta2-Adrenergic Agonist Start: 09-16-2022 take 3 mL by inhalation four times daily as needed for wheezing levalbuterol (XOPENEX) 1.25 mg/3 mL nebulizer solution Indications: COPD, severe (CMS-HCC) Inhale 3 mL by nebulization 4 (four) times a day as needed for wheezing. D: tachycardia and palpitations with albuterol 360 mL 6 09/16/2022 Active levothyroxine sodium 0.075 mg oral tablet (15 sources) l-Thyroxine Start: 08-01-2023 End: 06-06-2024 take 1 tablet by mouth in the morning levothyroxine (SYNTHROID, LEVOTHROID) 75 MCG tablet Indications: Acquired hypothyroidism TAKE 1 TABLET BY MOUTH IN THE MORNING 90 tablet 1 06/06/2024 Active Start: 07-19-2023 End: 08-01-2023 take 1 tablet by mouth once daily in the morning levothyroxine (SYNTHROID, LEVOTHROID) 88 MCG tablet Indications: Acquired hypothyroidism take 1 tablet by mouth every morning 90 tablet 1 07/19/2023 08/01/2023 Discontinued (Dose adjustment) Start: 01-27-2023 take 1 tablet by samantha th once daily in the morning levothyroxine (SYNTHROID, LEVOTHROID) 88 MCG tablet Indications: Acquired hypothyroidism take 1 tablet by mouth every morning 90 tablet 1 01/27/2023 Active 24 hr metoprolol succinate 25 mg extended release oral tablet (15 sources) beta-Adrenergic Elenita Start: 07-28-2023 take 1 tablet by mouth every twenty-four hours in the morning metoprolol succinate XL (TOPROL XL) 25 mg 24 hr tablet Indications: Tachycardia Take 1 tablet (25 mg total) by mouth in the morning. 90 tablet 1 07/28/2023 Active Start: 12-14-2022 End: 07-28-2023 take 1 tablet by mouth once daily in the morning metoprolol succinate XL (TOPROL XL) 25 mg 24 hr tablet Indications: Tachycardia take 1 tablet by mouth every morning 90 tablet 1 06/06/2023 07/28/2023 Discontinued (Reorder) montelukast 10 mg oral tablet (17 sources) Leukotriene Receptor Antagonist Start: 01-11-2024 take 1 tablet by mouth once daily montelukast (SINGULAIR) 10 mg tablet Indications: COPD, severe (CMS-HCC) , Seasonal allergic rhinitis, unspecified trigger Take 1 tablet (10 mg total) by mouth nightly. 90 tablet 1 01/11/2024 Active Start: 09-27-2022 End: 10-30-2024 take 1 tablet by mouth once daily montelukast (SINGULAIR) 10 mg tablet Indications: COPD, severe (CMS-HCC) , Seasonal allergic rhinitis, unspecified trigger Take 1 tablet (10 mg total) by mouth nightly. 90 tablet 1 12/21/2023 Active predniSONE 20 mg oral tablet (14 sources) Start: 12-22-2022 End: 07-28-2023 predniSONE (DELTASONE) 20 mg tablet Indications: COPD, severe (CMS-HCC) Take 1 tablet (20 mg total) by mouth See Admin Instructions. 1 tab 2x daily x3 days, 1 tab daily x3 days, 1/2 tablet daily x4 days 11 tablet 07/28/2023 Active tiZANidine 4 mg oral tablet (13 sources) Central alpha-2 Adrenergic Agonist Start: 09-07-2019 take 1 tablet by mouth in the morning, then take 1 tablet by mouth at bedtime tiZANidine (ZANAFLEX) 4 mg tablet Take 1 tablet (4 mg total) by mouth in the morning and 1 tablet (4 mg total) before bedtime. 09/07/2019 Active traZODone hydrochloride 150 mg oral tablet (17 sources) Serotonin Reuptake Inhibitor Start: 01-11-2024 take 1 tablet by mouth once daily traZODone (DESYREL) 150 mg tablet Indications: Psychophysiological insomnia Take 1 tablet (150 mg total) by mouth nightly. 90 tablet 1 01/11/2024 Active Start: 08-31-2022 End: 12-21-2023 take 1 tablet by mouth once daily traZODone (DESYREL) 150 mg tablet Indications: Psychophysiological insomnia Take 1 tablet (150 mg total) by mouth nightly. 90 tablet 1 12/21/2023 Active Completed/Discontinued Medications Medication Drug Class(es) Dates Sig (Normalized) Sig (Original) amitriptyline hydrochloride 25 mg oral tablet (6 sources) Tricyclic Antidepressant Start: 01-18-2022 End: 07-28-2023 take 0.5-1 tablets by mouth at bedtime amitriptyline (ELAVIL) 25 mg tablet take 1/2 to 1 tablet by mouth at bedtime 01/18/2022 07/28/2023 Discontinued azithromycin 250 mg oral tablet (2 sources) Macrolide Antimicrobial Start: 07-28-2023 End: 08-01-2023 azithromycin (ZITHROMAX) 250 mg tablet Indications: COPD, severe (CMS-HCC) Take 2 tablets the first day, then 1 tablet daily for 4 days. 6 tablet 07/28/2023 08/01/2023 baclofen 10 mg oral tablet (6 sources) gamma-Aminobutyric Acid-ergic Agonist Start: 06-20-2018 End: 07-28-2023 take 1 tablet by mouth three times daily baclofen (LIORESAL) 10 mg tablet Take 1 tablet (10 mg total) by mouth 3 (three) times a day. 2 06/20/2018 07/28/2023 Discontinued (Therapy completed) 120 actuat budesonide 0.16 mg/actuat / formoterol fumarate 0.0048 mg/actuat / glycopyrrolate 0.009 mg/actuat metered dose inhaler (6 sources) Corticosteroid, beta2-Adrenergic Agonist Start: 09-16-2022 End: 07-28-2023 take 2 puff(s) by inhalation at bedtime budesonide-glycopy r-formoterol 160-9-4.8 mcg/actuation HFA aerosol inhaler Indications: COPD, severe (CMS-HCC) Inhale 2 puffs in the morning and at bedtime. 10.7 g 12 09/16/2022 07/28/2023 Discontinued dextromethorphan hydrobromide 1.5 mg/ml / pyrilamine maleate 1.5 mg/ml oral solution (6 sources) Uncompetitive P-wkjtnw-M-aspartat e Receptor Antagonist, Sigma-1 Agonist Start: 12-22-2022 End: 07-28-2023 take 10 mL by mouth every six hours as needed for cough and congestion pyrilamine-dextrom ethorphan (CAPRON DM) 7.5-7.5 mg/5 mL liquid Indications: Upper respiratory tract infection, unspecified type , Acute cough Take 10 mL by mouth every 6 (six) hours as needed (cough and congestion). Increase fluids. 200 mL 12/22/2022 07/28/2023 Discontinued (Therapy completed) DULoxetine 30 mg delayed release oral capsule (6 sources) Serotonin and Norepinephrine Reuptake Inhibitor Start: 08-14-2022 End: 07-28-2023 take 1 capsule by mouth in the morning DULoxetine (CYMBALTA) 30 mg capsule Take 1 capsule (30 mg total) by mouth in the morning. 08/14/2022 07/28/2023 Discontinued (Patient Stopped On Own) fluconazole 200 mg oral tablet (1 source) Azole Antifungal Start: 10-14-2023 End: 10-17-2023 fluconazole (DIFLUCAN) 200 mg tablet Take 1 tablet (200 mg total) by mouth. 10/14/2023 10/17/2023 Discontinued (Therapy completed) gabapentin 400 mg oral capsule (14 sources) Anti-epileptic Agent Start: 11-10-2021 End: 07-28-2023 take 1 capsule by mouth in the morning, then take 1 capsule by mouth at bedtime gabapentin (NEURONTIN) 400 mg capsule Take 1 capsule (400 mg total) by mouth in the morning and 1 capsule (400 mg total) before bedtime. 11/10/2021 07/28/2023 Discontinued (Therapy completed) take 1 tablet by mouth twice mario ly gabapentin (NEURONTIN) 600 mg tablet take 1 tablet by mouth twice a day Active Problems Active Problems Problem Classification Problem Date Documented Date Episodic/Chronic Anxiety disorders (20 sources) Panic disorder; Translations: [Panic disorder [episodic paroxysmal anxiety]] Onset: 09-24-2016 09-24-2016 Chronic Chronic obstructive pulmonary disease and bronchiectasis (19 sources) Chronic obstructive pulmonary disease, unspecified; Translations: [Chronic obstructive lung disease] Onset: 08-14-2020 08-14-2020 Chronic Diabetes mellitus with complications (1 source) Type 2 diabetes mellitus with diabetic polyneuropathy; Translations: [TYPE 2 DM W/DIABETIC POLYNEUROPATHY] Onset: 05-14-2022 Chronic Diseases of white blood cells (3 sources) Elevated white blood cell count, unspecified; Translations: [Leukocytosis] Onset: 10-17-2023 10-17-2023 Chronic Disorders of lipid metabolism (3 sources) Mixed hyperlipidemia; Translations: [Mixed hyperlipidemia] Onset: 07-28-2023 07-28-2023 Chronic Esophageal disorders (2 sources) Gastro-esophageal reflux disease without esophagitis; Translations: [Gastroesophageal reflux disease without esophagitis] Onset: 07-28-2023 07-28-2023 Chronic Essential hypertension (13 sources) Essential hypertension; Translations: [Essential (primary) hypertension] Onset: 08-14-2020 08-14-2020 Chronic Miscellaneous mental health disorders (5 sources) Psychophysiologic insomnia; Translations: [Psychophysiologic insomnia] Onset: 07-28-2023 02-22-2023 Chronic Mood disorders (15 sources) Major depressive disorder, recurrent, moderate; Translations: [Recurrent major depressive episodes, moderate ] Onset: 09-24-2016 09-24-2016 Chronic Mycoses (3 sources) Candidal stomatitis; Translations: [Candidiasis of vagina] Onset: 10-17-2023 10-17-2023 Episodic Osteoporosis (1 source) Senile osteoporosis; Translations: [Age-related osteoporosis without current pathological fracture] 05-26-2023 Chronic Other diseases of kidney and ureters (13 sources) Renal mass; Translations: [Other specified disorders of kidney and ureter] Onset: 05-09-2018 06-06-2018 Chronic Other nervous system disorders (13 sources) Hereditary motor and sensory neuropathy; Translations: [Hereditary motor and sensory neuropathy] Onset: 08-14-2020 08-14-2020 Chronic Other nervous system disorders (3 sources) Peripheral nerve disease ; Translations: [Polyneuropathy, unspecified] Onset: 11-02-2023 11-02-2023 Chronic Other nervous system disorders (4 sources) Anesthesia of skin; Translations: [ANESTHESIA OF SKIN] Onset: 05-13-2022 Episodic Other upper respiratory disease (1 source) Other seasonal allergic rhinitis; Translations: [Other seasonal allergic rhinitis] Onset: 07-28-2023 Chronic Other upper respiratory disease (4 sources) Seasonal allergic rhinitis; Translations: [Other seasonal allergic rhinitis] 07-28-2023 Chronic Thyroid disorders (19 sources) Hypothyroidism, unspecified; Translations: [Hypothyroidism] Onset: 08-14-2020 06-21-2022 Chronic Unclassified (1 source) Annual Exam Onset: 11-02-2023 Unclassified (1 source) Acute candidiasis of vulva and vagina; Translations: [Acute candidiasis of vulva and vagina] Onset: 10-17-2023 Urinary tract infections (2 sources) Acute cystitis without hematuria; Translations: [Acute cystitis] Onset: 10-17-2023 10-17-2023 Episodic Urinary tract infections (1 source) Urinary tract infections Onset: 10-17-2023 Past or Other Problems Problem Classification Problem Date Documented Date Episodic/Chronic Cardiac dysrhythmias (4 sources) Tachycardia, unspecified; Translations: [Tachycardia] Onset: 07-28-2023 07-28-2023 Episodic E Codes: Natural/environment (13 sources) Exposure to radon, initial encounter; Translations: [Contact with and (suspected) exposure to other potentially hazardous substances] Onset: 08-14-2020 08-14-2020 Episodic Hemorrhoids (1 source) Hemorrhoids; Translations: [Unspecified hemorrhoids] 11-02-2023 Episodic Mood disorders (13 sources) Mood disorders Onset: 12-22-2022 Resolved: 11-02-2023 12-22-2022 Nonspecific chest pain (13 sources) Chest pain; Translations: [Chest pain, unspecified] Onset: 09-13-2019 09-13-2019 Episodic Other acquired deformities (3 sources) Spondylolysis; Translations: [Spondylolisthesis, site unspecified] Onset: 08-02-2023 11-02-2023 Episodic Other lower respiratory disease (13 sources) Dyspnea on exertion; Translations: [Other forms of dyspnea] Onset: 08-14-2020 08-14-2020 Episodic Other lower respiratory disease (13 sources) Nodule of lung; Translations: [Solitary pulmonary nodule] Onset: 08-14-2020 08-14-2020 Episodic Other nutritional; endocrine; and metabolic disorders (1 source) Unintentional weight loss; Translations: [Abnormal weight loss] 10-25-2023 Episodic Other screening for suspected conditions (not mental disorders or infectious disease) (14 sources) Thallium stress test abnormal; Translations: [Abnormal result of other cardiovascular function study] Onset: 09-13-2019 09-13-2019 Episodic Residual codes; unclassified (13 sources) Tobacco use and exposure - finding; Translations: [Tobacco use] Onset: 08-14-2020 08-14-2020 Episodic Spondylosis; intervertebral disc disorders; other back problems (6 sources) Spinal stenosis in cervical region; Translations: [Spinal stenosis, cervical region] Onset: 08-02-2023 11-02-2023 Episodic Unclassified (13 sources) Onset: 12-22-2022 Resolved: 11-02-2023 12-22-2022 Results Test Name Value Interpretation Reference Range Facility CBC auto differentialon 09-22 Band form neutrophils/100 WBC (Bld) 6.0 % [facility] Eosinophils (Bld) [#/Vol] 0.1 10*3/uL [facility] Eosinophils/100 WBC (Bld) 1.0 % [facility] Erythrocyte distribution width (RBC) [Ratio] 14.2 % 11.5 - 15.0 % [facility] Hematocrit (Bld) [Volume fraction] 45.0 % 35 - 47 % [facility] Hemoglobin (Bld) [Mass/Vol] 15.0 g/dL 11.7 - 15.5 g/dL [facility] Interpretation and review of laboratory results Abnormal [facility] Lymphocytes (Bld) [#/Vol] 1.6 10*3/uL [facility] Lymphocytes/100 WBC (Bld) 18.0 % [facility] MCH (RBC) [Entitic mass] 32.3 pg 27 - 34 pg [facility] MCHC (RBC) [Mass/Vol] 33.4 g/dL 32 - 36 g/dL [facility] MCV (RBC) [Entitic vol] 97 fL 80 - 100 fL [facility] Monocytes (Bld) [#/Vol] 1.2 10*3/uL High [facility] Monocytes/100 WBC (Bld) 14.0 % [facility] Myelocytes/100 WBC (Bld) 1.0 % [facility] Neutrophils (Bld) [#/Vol] 5.9 10*3/uL [facility] Platelet mean volume (Bld) [Entitic vol] 9.0 fL 7 - 12 fL [facility] Platelets (Bld) [#/Vol] 255 10*3/uL [facility] Polymorphonuclear cells/100 WBC (Bld) NORMAL [facility] RBC (Bld) [#/Vol] 4.65 10*6/uL [facility] Segmented neutrophils/100 WBC (Bld) 60.0 % [facility] WBC corrected for nucl RBC Auto (Bld) [#/Vol] 8.9 [facility] CBC AND AUTO DIFFon 10-17-19 24 Band form neutrophils/100 WBC (Bld) 6.0 % Normal [facility] Comment on above: Performed By: #### C BCA #### [facility] ([id number]) [address], [address] [place] [address] Eosinophils (Bld) [#/Vol] 0.1 10*3/uL Normal 0.0-0.4 [facility] Comment on above: Performed By: #### C BCA #### [facility] ([id number]) [address], [address] [place] [address] Eosinophils/100 WBC (Bld) 1.0 % Normal [facility] Comment on above: Performed By: #### C BCA #### [facility] ([id number]) [address], [address] [place] [address] Erythrocyte distribution width (RBC) [Ratio] 14.2 % Normal 11.5-15.0 [facility] Comment on above: Performed By: #### C BCA #### [facility] ([id number]) [address], [address] [place] [address] Hematocrit (Bld) [Volume fraction] 45.0 % Normal 35-47 [facility] Comment on above: Performed By: #### C BCA #### [facility] ([id number]) [address] [facility] [address] [place] [address] Hemoglobin (Bld) [Mass/Vol] 15.0 g/dL Normal 11.7-15.5 [facility] Comment on above: Performed By: #### C BCA #### [facility] ([id number]) [address], [address] [place] [address] Lymphocytes (Bld) [#/Vol] 1.6 10*3/uL Normal 1.0-3.5 [facility] Comment on above: Performed By: #### C BCA #### [facility] ([id number]) [address], [address] [place] [address] Lymphocytes/100 WBC (Bld) 18.0 % Normal [facility] Comment on above: Performed By: #### C BCA #### [facility] ([id number]) [address], [address] [place] [address] MCH (RBC) [Entitic mass] 32.3 pg Normal 27-34 [facility] Comment on above: Performed By: #### C BCA #### [facility] ([id number]) [address], [address] [place] [address] MCHC (RBC) [Mass/Vol] 33.4 g/dL Normal 32-36 [facility] Comment on above: Performed By: #### C BCA #### [facility] ([id number]) [address], [address] [place] [address] MCV (RBC) [Entitic vol] 97 fL Normal 80-100 [facility] Comment on above: Performed By: #### C BCA #### [facility] ([id number]) [address], [address] [place] [address] Monocytes (Bld) [#/Vol] 1.2 10*3/uL High 0-0.9 [facility] Comment on above: Performed By: #### C BCA #### [facility] ([id number]) [address], [address] [place] [address] Monocytes/100 WBC (Bld) 14.0 % Normal [facility] Comment on above: Performed By: #### C BCA #### [facility] ([id number]) [address], [address] [place] [address] MYELOCYTE 1.0 % Normal [facility] Comment on above: Performed By: #### C BCA #### [facility] ([id number]) [address], [address] [place] [address] Neutrophils (Bld) [#/Vol] 5.9 10*3/uL Normal 1.5-6.6 [facility] Comment on above: Performed By: #### C BCA #### [facility] ([id number]) [address], [address] [place] [address] Platelet mean volume (Bld) [Entitic vol] 9.0 fL Normal 7-12 [facility] Comment on above: Performed By: #### C BCA #### [facility] ([id number]) [address], [address] [place] [address] Platelets (Bld) [#/Vol] 255 10*3/uL Normal 150-450 [facility] Comment on above: Performed By: #### C BCA #### [facility] ([id number]) [address], [address] [place] [address] RBC COUNT 4.65 X10E12/L Normal 3.80-5.20 [facility] Comment on above: Performed By: #### C BCA #### [facility] ([id number]) [address], [address] [place] [address] RBC morphology finding Nom (Bld) NORMAL Normal [facility] Comment on above: Performed By: #### C BCA #### [facility] ([id number]) [address], [address] [place] [address] SEG NEUTROPHIL 60.0 % Normal [facility] Comment on above: Performed By: #### C BCA #### [facility] ([id number]) [address], [address] [place] [address] WBC (Bld) [#/Vol] 8.9 10*3/uL Normal 4.0-11.0 [facility] Comment on above: Performed By: #### C BCA #### [facility] ([id number]) [address], [address] [place] [address] CBC AND AUTO DIFFon 07-28-19 24 ABSOLUTE BASOPHIL 0.1 X10E9/L Normal 0.0-0.2 [facility] Comment on above: Performed By: #### C KATERINA HIGGINS, 54585-7, THYR #### [facility] ([id number]) [address], [address] [place] [address] ABSOLUTE NEUTROPHIL 5.4 X10E9/L Normal 1.5-6.6 [facility] Comment on above: Performed By: #### C KATERINA HIGGINS, 72057-1, THYR #### [facility] ([id number]) [address], [address] [place] [address] Basophils/100 WBC (Bld) 0.9 % Normal [facility] Comment on above: Performed By: #### C KATERINA HIGGINS, 35820-3, THYR #### [facility] ([id number]) [address], [address] [place] [address] Eosinophils (Bld) [#/Vol] 0.0 10*3/uL Normal 0.0-0.4 [facility] Comment on above: Performed By: #### C KATERINA HIGGINS, 12763-1, THYR #### [facility] ([id number]) [address], [address] [place] [address] Eosinophils/100 WBC (Bld) 0.3 % Normal [facility] Comment on above: Performed By: #### C KATERINA HIGGINS, 17663-9, THYR #### [facility] ([id number]) [address] [place] [address] Erythrocyte distribution width (RBC) [Ratio] 14.1 % Normal 11.5-15.0 [facility] Comment on above: Performed By: #### C KATERINA HIGGINS, 42455-7, THYR #### [facility] ([id number]) [address], [address] [place] [address] Hematocrit (Bld) [Volume fraction] 46.4 % Normal 35-47 [facility] Comment on above: Performed By: #### C GISELA, CMP, 09741-3, THYR #### [facility] ([id number]) [address], [address] [place] [address] Hemoglobin (Bld) [Mass/Vol] 15.8 g/dL High 11.7-15.5 [facility] Comment on above: Performed By: #### C GISELA, CMP, 76989-0, THYR #### [facility] ([id number]) [address] [place] [address] Lymphocytes (Bld) [#/Vol] 1.1 10*3/uL Normal 1.0-3.5 [facility] Comment on above: Performed By: #### Letha HIGGINS, CMP, 42710-3, THYR #### [facility] ([id number]) [address], [address] [place] [address] Lymphocytes/100 WBC (Bld) 15.5 % Normal [facility] Comment on above: Performed By: #### C GISELA, CMP, 01634-4, THYR #### [facility] ([id number]) [address], [address] [place] [address] MCH (RBC) [Entitic mass] 32.2 pg Normal 27-34 [facility] Comment on above: Performed By: #### C BCA, CMP, 19737-8, THYR #### [facility] ([id number]) [address], [address] [place] [address] MCHC (RBC) [Mass/Vol] 34.0 g/dL Normal 32-36 [facility] Comment on above: Performed By: #### C BCA, CMP, 59638-3, THYR #### [facility] ([id number]) [address], [address] [place] [address] MCV (RBC) [Entitic vol] 95 fL Normal 80-100 [facility] Comment on above: Performed By: #### C BCA, CMP, 43872-9, THYR #### [facility] ([id number]) [address], [address] [place] [address] Monocytes (Bld) [#/Vol] 0.6 10*3/uL Normal 0-0.9 [facility] Comment on above: Performed By: #### C BCA, CMP, 68574-9, THYR #### [facility] ([id number]) [address], [address] [place] [address] Monocytes/100 WBC (Bld) 8.6 % Normal [facility] Comment on above: Performed By: #### C BCA, CMP, 16628-5, THYR #### [facility] ([id number]) [address], [address] [place] [address] Neutrophils/100 WBC (Bld) 74.7 % Normal [facility] Comment on above: Performed By: #### C BCA, CMP, 02696-9, THYR #### [facility] ([id number]) [address], [address] [place] [address] Platelet mean volume (Bld) [Entitic vol] 7.9 fL Normal 7-12 [facility] Comment on above: Performed By: #### Letha BCA, CMP, 09738-7, THYR #### [facility] ([id number]) [address], [address] [place] [address] Platelets (Bld) [#/Vol] 293 10*3/uL Normal 150-450 [facility] Comment on above: Performed By: #### C BCA, CMP, 54509-7, THYR #### [facility] ([id number]) [address], [address] [place] [address] RBC COUNT 4.91 X10E12/L Normal 3.80-5.20 [facility] Comment on above: Performed By: #### C GISELA, KATERINA, 30221-8, THYR #### [facility] ([id number]) [address], [address] [place] [address] WBC (Bld) [#/Vol] 7.2 10*3/uL Normal 4.0-11.0 [facility] Comment on above: Performed By: #### C GISELA, CMP, 49258-0, THYR #### [facility] ([id number]) [address] [place] [address] CBC auto differentialon 06-0 Basophils (Bld) [#/Vol] 0.1 10*3/uL [facility] Basophils/100 WBC (Bld) 0.9 % [facility] Eosinophils (Bld) [#/Vol] 0.0 10*3/uL [facility] Eosinophils/100 WBC (Bld) 0.3 % [facility] Erythrocyte distribution width (RBC) [Ratio] 14.1 % 11.5 - 15.0 % [facility] Hematocrit (Bld) [Volume fraction] 46.4 % 35 - 47 % [facility] Hemoglobin (Bld) [Mass/Vol] 15.8 g/dL High 11.7 - 15.5 g/dL [facility] Interpretation and review of laboratory results Abnormal [facility] Lymphocytes (Bld) [#/Vol] 1.1 10*3/uL [facility] Lymphocytes/100 WBC (Bld) 15.5 % [facility] MCH (RBC) [Entitic mass] 32.2 pg 27 - 34 pg [facility] MCHC (RBC) [Mass/Vol] 34.0 g/dL 32 - 36 g/dL [facility] MCV (RBC) [Entitic vol] 95 fL 80 - 100 fL [facility] Monocytes (Bld) [#/Vol] 0.6 10*3/uL [facility] Monocytes/100 WBC (Bld) 8.6 % [facility] Neutrophils (Bld) [#/Vol] 5.4 10*3/uL [facility] Neutrophils/100 WBC (Bld) 74.7 % [facility] Platelet mean volume (Bld) [Entitic vol] 7.9 fL 7 - 12 [facility]L [facility] Platelets (Bld) [#/Vol] 293 10*3/uL [facility] RBC (Bld) [#/Vol] 4.91 10*6/uL [facility] WBC corrected for nucl RBC Auto (Bld) [#/Vol] 7.2 [facility] COMPREHENSIVE METABOLIC PANE Jonathon 07-28-2023 Albumin [Mass/Vol] 4.4 g/dL Normal 3.2-5.3 [facility] Comment on above: Performed By: #### C GISELA CMP, 81492-6, THYR #### [facility] ([id number]) [address], [address] [place] [address] ALP [Catalytic activity/Vol] 78 U/L Normal 39-130 [facility] Comment on above: Performed By: #### C BCA, CMP, 50497-5, THYR #### [facility] ([id number]) [address], [address] [place] [address] ALT [Catalytic activity/Vol] 12 U/L Normal 0-31 [facility] Comment on above: Performed By: #### C BCA, CMP, 95617-0, THYR #### [facility] ([id number]) [address], [address] [place] [address] Anion gap [Moles/Vol] 11 mmol/L Normal 5-15 [facility] Comment on above: Performed By: #### C BCA, CMP, 37127-4, THYR #### [facility] ([id number]) [address], [address] [place] [address] AST [Catalytic activity/Vol] 19 U/L Normal 0-41 [facility] Comment on above: Performed By: #### C BCA, CMP, 02917-6, THYR #### [facility] ([id number]) [address], [address] [place] [address] Bilirubin [Mass/Vol] 0.7 mg/dL Normal 0.3-1.2 [facility] Comment on above: Performed By: #### C BCA, CMP, 45550-0, THYR #### [facility] ([id number]) [address], [address] [place] [address] Calcium [Mass/Vol] 9.6 mg/dL Normal 8.5-10.5 [facility] Comment on above: Performed By: #### C BCA, CMP, 13168-0, THYR #### [facility] ([id number]) [address], [address] [place] [address] Chloride [Moles/Vol] 102 mmol/L Normal 98-109 [facility] Comment on above: Performed By: #### C BCA, CMP, 63061-1, THYR #### [facility] ([id number]) [address], [address] [place] [address] CO2 [Moles/Vol] 30 mmol/L Normal 22-32 [facility] Comment on above: Performed By: #### C BCA, CMP, 39412-8, THYR #### [facility] ([id number]) [address], [address] [place] [address] Creatinine [Mass/Vol] 0.71 mg/dL Normal 0.40-1.00 [facility] Comment on above: Result Comment: METH OD TRACEABLE TO IDMS STANDARD Performed By: #### C BCA, CMP, 54032-5, THYR #### [facility] ([id number]) [address], [address] [place] [address] eGFR (CKD-EPI) NON-RACE DEPENDENT >90 Normal >59 [facility] Comment on above: Result Comment: Reported eGFR is based on the CKD-EPI 2020 equation that does not use a race coefficient. Performed By: #### C BCA, CMP, 77386-8, THYR #### [facility] ([id number]) [address], [address] [place] [address] Glucose [Mass/Vol] 119 mg/dL High 65-99 [facility] Comment on above: Performed By: #### C BCA, CMP, 33193-2, THYR #### [facility] ([id number]) [address], [address] [place] [address] Potassium [Moles/Vol] 4.2 mmol/L Normal 3.5-5.0 [facility] Comment on above: Performed By: #### C BCA, CMP, 12768-9, THYR #### [facility] ([id number]) [address], [address] [place] [address] Protein [Mass/Vol] 6.8 g/dL Normal 6.0-8.0 [facility] Comment on above: Performed By: #### C BCA, CMP, 22118-4, THYR #### [facility] ([id number]) [address], [address] [place] [address] Sodium [Moles/Vol] 143 mmol/L Normal 134-146 [facility] Comment on above: Performed By: #### C BCA, CMP, 16088-3, THYR #### [facility] ([id number]) [address], [address] [place] [address] Urea nitrogen [Mass/Vol] 11 mg/dL Normal 5-27 [facility] Comment on above: Performed By: #### C BCA, CMP, 96190-5, THYR #### [facility] ([id number]) [address], [address] [place] [address] Comprehensive metabolic pane jonathon 07-28-2023 Albumin [Mass/Vol] 4.4 g/dL 3.2 - 5.3 g/dL [facility] ALP [Catalytic activity/Vol] 78 U/L 39 - 130 U/L [facility] ALT No additional P-5'-P [Catalytic activity/Vol] 12 U/L 0 - 31 U/L [facility] Anion gap [Moles/Vol] 11 mmol/L 5 - 15 mmol/L [facility] AST [Catalytic activity/Vol] 19 U/L 0 - 41 U/L [facility] Bilirubin [Mass/Vol] 0.7 mg/dL 0.3 - 1 .2 mg/dL [facility] Calcium [Mass/Vol] 9.6 mg/dL 8.5 - 10. 5 mg/dL [facility] Chloride [Moles/Vol] 102 mmol/L 98 - 10 9 mmol/L [facility] CO2 [Moles/Vol] 30 mmol/L 22 - 32 mmol/L [facility] Creatinine [Mass/Vol] 0.71 mg/dL 0.40 - 1.00 mg/dL [facility] Comment on above: METHOD TRACEABLE TO [facility] STANDARD eGFR (CKD-EPI)non-race dependent - PINF [facility] Comment on above: Reported eGFR is based on the CKD-EPI 2020 equation that does not use a race coefficient. Glucose [Mass/Vol] 119 mg/dL High 65 - 99 mg/dL [facility] Potassium [Moles/Vol] 4.2 mmol/L 3.5 - 5.0 mmol/L [facility] Protein [Mass/Vol] 6.8 g/dL 6.0 - 8.0 g/dL [facility] Sodium [Moles/Vol] 143 mmol/L 134 - 146 mmol/L [facility] Urea nitrogen [Mass/Vol] 11 mg/dL 5 - 27 mg/dL [facility] Lipid 1996 panelon 4 Cholesterol [Mass/Vol] 230 mg/dL High 150 - 200 mg/dL [facility] Cholesterol in HDL [Mass/Vol] 113 mg/dL 39 - PINF mg/dL [facility] Comment on above: HDL <40 mg/dL - High Risk HDL > or = 40mg/dL- Desirable HDL >60 mg/dL - Negative Risk Cholesterol in LDL [Mass/Vol] 105 mg/dL NINF - 130 mg/dL [facility] Comment on above: LDL <100 mg/dL - Desirable LDL >160 mg/dL - High Risk Cholesterol in VLDL [Mass/Vol] 12 mg/dL 0 - 30 mg/dL [facility] Cholesterol.total/Cho lesterol in HDL [Mass ratio] 2.0 {ratio} 1.0 - 5.0 [facility] Triglyceride [Mass/Vol] 62 mg/dL 27 - 150 mg/dL [facility] Cholesterol [Mass/Vol] 230 mg/dL High 150-200 [facility] Comment on above: Performed By: #### C GISELA, [facility], 40660-2, THYR #### [facility] ([id number]) [address], [address] [place] [address] Cholesterol in HDL [Mass/Vol] 113 mg/dL Normal >39 [facility] Comment on above: Result Comment: HDL <40 mg/dL - High Risk HDL > or = 40mg/dL- Desirable HDL >60 mg/dL - Negative Risk Performed By: #### C GISELA, KATERINA, 54712-0, THYR #### [facility] ([id number]) [address], [address] [place] [address] Cholesterol in LDL [Mass/Vol] 105 mg/dL Normal <130 [facility] Comment on above: Result Comment: LDL <100 mg/dL - Desirable LDL >160 mg/dL - High Risk Performed By: #### C BCA, CMP, 35431-5, THYR #### [facility] ([id number]) [address], [address] [place] [address] Cholesterol in VLDL [Mass/Vol] 12 mg/dL Normal 0-30 [facility] Comment on above: Performed By: #### C BCA, CMP, 98239-4, THYR #### [facility] ([id number]) [address] [address] [place] [address] CHOLESTEROL:HDL 2.0 Normal 1.0-5.0 [facility] Comment on above: Performed By: #### C BCA, CMP, 66820-5, THYR #### [facility] ([id number]) [address] [address] Triglyceride [Mass/Vol] 62 mg/dL Normal 27-150 [facility] Comment on above: Performed By: #### C BCA, CMP, 75002-1, THYR #### [facility] ([id number]) [address] [address] No Panel Informationon 07-27 Interpretation and review of laboratory results Abnormal [facility] THYROID PROFILEon 07-28-2023 Free T4 [Mass/Vol] 1.60 ng/dL Normal 0.61-1.60 [facility] Comment on above: Performed By: #### C BCA, CMP, 66993-5, THYR #### [facility] ([id number]) [address] [address] [place] [address] TSH 0.05 uIU/mL Low 0.49-4.67 [facility] Comment on above: Performed By: #### C BCA, CMP, 96511-3, THYR #### [facility] ([id number]) [address] [address] [place] [address] Thyroid profile includes TSH FT4on 07-28-2023 Free T4 [Mass/Vol] 1.60 ng/dL 0.61 - 1. 60 ng/dL [facility] Interpretation and review of laboratory results Abnormal [facility] TSH Qn 0.05 m[IU]/L Low [facility] CBC AUTO DIFFon 05-13-2022 BASO # 0.1 103/ul Normal 0.0-0.1 [facility] Comment on above: Performed By: #### C BC #### [facility] [address] [place] [address] Dr. Alisha Aparicio Basophils/100 WBC (Bld) 0.9 % Normal 0.2-2.0 [facility] Comment on above: Performed By: #### C BC #### [facility] [address] [place] [address] Dr. Alisha Aparicio EO # 0.0 103/ul Normal 0.0-0.7 [facility] Comment on above: Performed By: #### C BC #### [facility] [address] [place] [address] Dr. Alisha Aparicio Eosinophils/100 WBC (Bld) 0.6 % Critically low 0.9-7.0 [facility] Comment on above: Performed By: #### C BC #### [facility] [address] [place] [address] Dr. Alisha Aparicio Erythrocyte distribution width (RBC) [Ratio] 13.0 % Normal 11.0-15.0 [facility] Comment on above: Performed By: #### C BC #### [facility] [address] [place] [address] Dr. Alisha Aparicio Hematocrit (Bld) [Volume fraction] 45.1 % Normal 36.0-48.0 [facility] Comment on above: Performed By: #### C BC #### [facility] [address] [place] [address] Dr. Alisha Aparicio Hemoglobin (Bld) [Mass/Vol] 14.8 g/dL Normal 12.0-16.0 [facility] Comment on above: Performed By: #### C BC #### [facility] [address] [address] [address] Alisha Aparicio IG # 0.03 10e3/ul Normal 0.00-0.03 [facility] Comment on above: Performed By: #### C BC #### [facility] [address] [address] [address] Alisha Aparicio IG % 0.4 % Normal 0.0-0.5 [facility] Comment on above: Performed By: #### C BC #### [facility] [address] [place] [address] Dr. Alisha Aparicio LYMPH # 1.2 103/ul Normal 1.2-3.8 [facility] Comment on above: Performed By: #### C BC #### [facility] [address] [place] [address] Dr. Alisha Aparicio Lymphocytes/100 WBC (Bld) 17.6 % Critically low 20.5-60.0 [facility] Comment on above: Performed By: #### C BC #### [facility] [address] [place] [address] Dr. Alisha Aparicio MANUAL DIFF REQ NO Normal [place] Comment on above: Performed By: #### C BC #### [facility] [address] [place] [address] Dr. Alisha Aparicio MCH (RBC) [Entitic mass] 29.2 pg Normal 26.7-34.0 [facility] Comment on above: Performed By: #### C BC #### [facility] [address] [place] [address] Dr. Alisha Aparicio MCHC (RBC) [Mass/Vol] 32.8 g/dL Normal 29.9-35.2 [facility] Comment on above: Performed By: #### C BC #### [facility] [address] [place] [address] Dr. Alisha Aparicio MCV (RBC) [Entitic vol] 89.1 fL Normal 81.0-99.0 [facility] Comment on above: Performed By: #### C BC #### [facility] [address] [place] [address] Dr. Alisha Aparicio MONO # 0.6 103/ul Normal 0.3-0.8 [facility] Comment on above: Performed By: #### C BC #### [facility] [address] [place] [address] Dr. Alisha Aparicio Monocytes/100 WBC (Bld) 8.8 % Normal 1.7-12.0 [facility] Comment on above: Performed By: #### C BC #### [facility] [address] [place] [address] Dr. Alisha Aparicio NEUT # 4.8 103/ul Normal 1.4-6.5 [facility] Comment on above: Performed By: #### C BC #### [facility] [address] [place] [address] Dr. Alisha Aparicio Neutrophils/100 WBC (Bld) 71.7 % Normal 43.0-75.0 [facility] Comment on above: Performed By: #### C BC #### [facility] [address] [place] [address] Dr. Alisha Aparicio Platelet mean volume (Bld) [Entitic vol] 9.3 fL Critically low 9.5-13.5 [facility] Comment on above: Performed By: #### C BC #### [facility] [address] [place] [address] Dr. Alisha Aparicio PLT 296 103/ul Normal 150-450 [facility] Comment on above: Performed By: #### C BC #### [facility] [address] [place] [address] Dr. Alisha Aparicio RBC 5.06 106/ul Normal 4.20-5.40 [facility] Comment on above: Performed By: #### C BC #### [facility] [address] [place] [address] Dr. Alisha Aparicio WBC 6.7 103/ul Normal 4.0-11.0 [facility] Comment on above: Performed By: #### C BC #### [facility] [address] [place] [address] Dr. Alisha Aparicio CPKon 05-13-2022 CK [Catalytic activity/Vol] 132 U/L Normal 26-192 [facility] Comment on above: Performed By: #### C K, HSTRJUAN ANTONIO, BMP #### [facility] [address] [place] [address] Dr. Alisha MERCER URINE PROFILEon 3 Bilirubin Ql (U) Negative Normal NEGATIVE [facility] Comment on above: Performed By: #### E RUR #### [facility] [address] [place] [address] Dr. Alisha Aparicio Clarity (U) CLEAR Normal CLEAR [facility] Comment on above: Performed By: #### E RUR #### [facility] [address] [place] [address] Dr. Alisha Aparicio Color (U) LT. YELLOW Normal YELLOW [facility] Comment on above: Performed By: #### E RUR #### [facility] [address] [place] [address] Dr. Alisha Aparicio ERUAHNatali A micrscopic examination will be performed if indicated. Normal [facility] Comment on above: Performed By: #### E RUR #### [facility] [address] [place] [address] Dr. Alisha Aparicio Glucose Ql (U) Negative Normal NEGATIVE [facility] Comment on above: Performed By: #### E RUR #### [facility] [address] [place] [address] Dr. Alisha Aparicio Hemoglobin Ql (U) Negative Normal NEGATIVE [facility] Comment on above: Performed By: #### E RUR #### [facility] [address] [place] [address] Dr. Alisha Aparicio Ketones Ql (U) Negative Normal NEGATIVE [facility] Comment on above: Performed By: #### E RUR #### [facility] [address] [place] [address] Dr. Alisha Aparicio LEUKOCYTES Negative Normal NEGATIVE [facility] Comment on above: Performed By: #### E RUR #### [facility] [address] [place] [address] Dr. Alisha Aparicio Nitrite Ql (U) Negative Normal NEGATIVE [facility] Comment on above: Performed By: #### E RUR #### [facility] [address] [place] [address] Dr. Alisha Aparicio pH (U) 7.5 [pH] Normal 5-9 [facility] Comment on above: Performed By: #### E RUR #### [facility] [address] [place] [address] Dr. Alisha Aparicio SPEC GRAVITY <=1.005 Abnormal 1.005-<=1.02 5 [facility] Comment on above: Performed By: #### E RUR #### [facility] [address] [place] [address] Dr. Alisha Aparicio UA PROTEIN Negative Normal NEGATIVE/ TRACE [facility] Comment on above: Performed By: #### E RUR #### [facility] [address] [place] [address] Dr. Alisha Aparicio UR MICRO IND NOT INDICATED Normal [place] Comment on above: Performed By: #### E RUR #### [facility] [address] [place] [address] Dr. Alisha Aparicio Urobilinogen Qn (U) 0.2 {Luz'U}/dL Normal 0.2 - 1. 0 [facility] Comment on above: Performed By: #### E RUR #### [facility] [address] [place] [address] Dr. Alisha Aparicio PROF CHEM 8 (BAS METB)on Anion gap [Moles/Vol] 9.5 mmol/L Normal [facility] Comment on above: Performed By: #### C K, HSTROPN, BMP #### [facility] [address] [place] [address] Dr. Alisha Aparicio Calcium [Mass/Vol] 9.1 mg/dL Normal 8.5-10.1 [facility] Comment on above: Performed By: #### C K, HSTROPN, BMP #### [facility] [address] [place] [address] Dr. Alisha Aparicio Chloride [Moles/Vol] 105 mmol/L Normal 98-107 [facility] Comment on above: Performed By: #### Letha Hernadez HSTRJUAN ANTONIO, BMP #### [facility] [address] [address] [address] Alisha Aparicio CO2 [Moles/Vol] 29.4 mmol/L Normal 21.0-32.0 [facility] Comment on above: Performed By: #### Letha Hernadez HSTRJUAN ANTONIO, BMP #### [facility] [address] [address] [address] Alisha Aparicio Creatinine [Mass/Vol] 0.61 mg/dL Normal 0.55-1.02 [facility] Comment on above: Performed By: #### LOS SheaTRJUAN ANTONIO, BMP #### [facility] [address] [address] [address] Alisha Aparicio EGFR-AF [place]I >60 Normal >=60 [facility] Comment on above: Performed By: #### Letha Hernadez HSTRJUAN ANTONIO, BMP #### [facility] [address] [address] [address] Alisha Aparicio EGFR-NON AF [place] >60 Normal >=60 [facility] Comment on above: Performed By: #### LOS SheaTRJUAN ANTONIO, BMP #### [facility] [address] [address] [address] Alisha Aparicio Glucose [Mass/Vol] 118 mg/dL Critically high 74-106 [facility] Comment on above: Performed By: #### Letha Hernadez HSTROPSandeep, BMP #### [facility] [address] [address] [address] Alisha Aparicio Potassium [Moles/Vol] 3.9 mmol/L Normal 3.5-5.1 [facility] Comment on above: Performed By: #### Letha Hernadez HSTROPSandeep, BMP #### [facility] [address] [address] [address] Alisha Aparicio Sodium [Moles/Vol] 140 mmol/L Normal 136-145 [facility] Comment on above: Performed By: #### C Maricarmen HSTROPSandeep, BMP #### [facility] [address] [place], [place] [address] Dr. Alisha Aparicio Urea nitrogen [Mass/Vol] 9.0 mg/dL Normal 7.0-18.0 [facility] Comment on above: Performed By: #### C K, HSTROPN, BMP #### [facility] [address] [place], [place] [address] Dr. Alisha Aparicio Urea nitrogen/Creatinine [Mass ratio] 14.7 mg/mg Normal [facility] Comment on above: Performed By: #### C K, HSTROPN, BMP #### [facility] [address] [address] [address] Alisha Aparicio TROPONIN, HIGH SENSITIVITYon 05-13-2022 HSTROP 34.6 pg/mL Normal 4.0-51.3 [facility] Comment on above: Result Comment: CUT- OFF POINTS HAVE BEEN ESTABLISHED BASED ON THE FOURTH UNIVERSAL DEFINITIONS OF MYOCARDIAL INFARCTION. THE UPPER REFERENCE LIMIT (URL) OF TROPONIN, DEFINED THE 99TH PERCENTILE OF cTnI DISTRIBUTION IN A REFERENCE POPULATION, HAS BEEN CONFIRMED THE DECISION THRESHOLD FOR PR DIAGNOSIS. Performed By: #### C K, HSTROPN, BMP #### [facility] [address] [address] [address] Alisha Aparicio VITAMIN Don 05-14-2018 VITAMIN D 12.9 ng/mL Low 30.0-100.0 [facility] Comment on above: Result Comment: (<20 ng/mL) Deficiency This assay accurately quantifies the sum of vitamin D3, 25-Hydroxy and vitamin D2, 25-Hyroxy. Vitamin B12 and Folateon Cobalamin (Vitamin B12) mass conc 264 pg/mL Normal 232-1245 [facility] Folate 10.8 ng/mL Normal 7.3-26.1 [facility] Comment on above: Result Comment: As o f 15, the methodology has changed. Results from this methodology should not be compared with results from previous methodology. Complete Blood Count Auto Di ffon 05-12-2018 Basophils #/vol (Bld) 0.1 10*3/uL Normal 0.0-0.2 [facility] Comment on above: Result Comment: PERF ORMED BY: [place] [address] PATHOLOGIST RAILRO[employer] OPERATING ENGINEER ANURADHA LEYVA M.D. Performed By: #### C BC, CMP, TSH3, CKMB #### [address] Basophils/100 WBC (Bld) 1.1 % Normal . [facility] Comment on above: Performed By: #### C BC, CMP, TSH3, CKMB #### [address] Eosinophils #/vol (Bld) 0.0 10*3/uL Normal 0.0-0.45 [facility] Comment on above: Performed By: #### C BC, CMP, TSH3, CKMB #### [address] Eosinophils/100 WBC (Bld) 0.2 % Normal . [facility] Comment on above: Performed By: #### C BC, CMP, TSH3, CKMB #### [address] Erythrocyte distribution width Ratio (RBC) 14.0 % Normal 11.9-15.3 [facility] Comment on above: Performed By: #### C BC, CMP, TSH3, CKMB #### [address] Hematocrit Volume Fraction (Bld) 44.7 % Normal 34.0-46.4 [facility] Comment on above: Performed By: #### C BC, CMP, TSH3, CKMB #### [address] Hemoglobin mass conc (Bld) 14.8 g/dL Normal 11.8-15.4 [facility] Comment on above: Performed By: #### C BC, CMP, TSH3, CKMB #### [address] Lymphocytes #/vol (Bld) 1.3 10*3/uL Normal 1.00-4.8 [facility] Comment on above: Performed By: #### C BC, CMP, TSH3, CKMB #### [address] Lymphocytes/100 WBC (Bld) 21.6 % Normal . [facility] Comment on above: Performed By: #### C BC, CMP, TSH3, CKMB #### [address] MCH Entitic mass (RBC) 28.9 pg Normal 24.7-34.3 [facility] Comment on above: Performed By: #### C BC, CMP, TSH3, CKMB #### [address] MCH Entitic mass (RBC) 33.0 g/dL Normal 32.0-35.0 [facility] Comment on above: Performed By: #### C BC, CMP, TSH3, CKMB #### [address] MCV Entitic volume (RBC) 87.4 fL Normal 80-100 [facility] Comment on above: Performed By: #### C BC, CMP, TSH3, CKMB #### [address] Monocytes #/vol (Bld) 0.4 10*3/uL Normal 0.0-0.8 [facility] Comment on above: Performed By: #### C BC, CMP, TSH3, CKMB #### [address] Monocytes/100 WBC (Bld) 6.7 % Normal . [facility] Comment on above: Performed By: #### C BC, CMP, TSH3, CKMB #### [address] Neutrophils #/vol (Bld) 4.2 10*3/uL Normal 1.8-7.7 [facility] Comment on above: Performed By: #### C BC, CMP, TSH3, CKMB #### [place] [address] Neutrophils/100 WBC (Bld) 70.4 % Normal . [facility] Comment on above: Performed By: #### C BC, CMP, TSH3, CKMB #### [address] Nucleated RBC/100 WBC Ratio (Bld) 0.1 % Normal 0-0.5 [facility] Comment on above: Performed By: #### C BC, CMP, TSH3, CKMB #### [address] Platelet mean volume Entitic volume (Bld) 9.0 fL Normal 6.3-10.7 [facility] Comment on above: Performed By: #### C BC, CMP, TSH3, CKMB #### [address] Platelets #/vol (Bld) 243 10*3/uL Normal 150-450 [facility] Comment on above: Performed By: #### C BC, CMP, TSH3, CKMB #### [address] RBC #/vol (Bld) 5.11 10*6/uL High 3.60-5.00 [facility] Comment on above: Performed By: #### C BC, CMP, TSH3, CKMB #### [address] WBC #/vol (Bld) 6.0 10*3/uL Normal 3.8-11.6 [facility] Comment on above: Performed By: #### C BC, CMP, TSH3, CKMB #### [address] Comprehensive Metabolic Pane jonathon 05-12-2018 Albumin mass conc 3.9 g/dL Normal 3.2-5.5 [facility] Comment on above: Performed By: #### C BC, CMP, TSH3, CKMB #### [address] Albumin/Globulin mass ratio 1.9 {ratio} Normal [facility] Comment on above: Performed By: #### C BC, CMP, TSH3, CKMB #### [facility] [address] [place] [address] ALP enzyme act/vol 54 U/L Normal 32-92 [facility] Comment on above: Performed By: #### C BC, CMP, TSH3, CKMB #### [facility] [address] [place] [address] [place] ALT enzyme act/vol 15 U/L Normal 10-60 [facility] Comment on above: Performed By: #### C BC, CMP, TSH3, CKMB #### [address] AST enzyme act/vol 18 U/L Normal 10-42 [facility] Comment on above: Performed By: #### C BC, CMP, TSH3, CKMB #### [address] Bilirubin mass conc 0.7 mg/dL Normal 0.3-1.2 [facility] Comment on above: Performed By: #### C BC, CMP, TSH3, CKMB #### [place] [address] [place] Calcium mass conc 9.3 mg/dL Normal 8.2-10.2 [facility] Comment on above: Performed By: #### C BC, CMP, TSH3, CKMB #### [place] [address] [place] Chloride molar conc 103 mmol/L Normal 95-114 [facility] Comment on above: Performed By: #### C BC, CMP, TSH3, CKMB #### [place] [address] [place] CO2 molar conc 26.5 mmol/L Normal 22.0-30.0 [facility] Comment on above: Performed By: #### C BC, CMP, TSH3, CKMB #### [place] [address] [place] Creatinine mass conc 45.9141083038 mg/dL [facility] Comment on above: Performed By: #### C BC, CMP, TSH3, CKMB #### [facility] [address] Creatinine mass conc 0.78 mg/dL Normal 0.44-1.03 [facility] Comment on above: Performed By: #### C BC, CMP, TSH3, CKMB #### [facility] [address] Estimated GFR ( Jackie > 60 [facility] Comment on above: Result Comment: GFR estimated reference range: According to KDOQI guidelines, <60 ml/min/1.73m2 is sufficient to diagnose a patient with chronic kidney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 medications, tests, or procedures Follow-up: Medicare wellness ESHA Michel 07/28/23 1001 ESHA Michel 07/28/23 1056 documented in this encounter [facility] 07-28-2023 Instructions ESHA Michel - 07/28/2023 9:00 AM EDT Are You Ready To Kick The Habit? Free Tobacco Cessation Resources [facility] Services [facility] provide all employees with free tobacco cessation services that include: Counseling to understand nicotine addiction Education about medications that can help you successfully quit Assistance with developing a plan to quit Call to set up an individual appointment or find out when group classes will be held: [facility]: [phone] [facility]: [phone] [facility]: [phone] [facility]: [phone] Quit Smoking Action Plan and Resources [facility] offers an eight-week, online smoking cessation plan to all [facility] employees, regardless of whether [employer] is your medical insurance provider. Go to www.[employer].[email or web address]/employeewel lness and click the Health Risk Assessment and Resources link to get started. In the Ozwvm6Jduxky menu, click Action Plans instead of Health Risk Assessment to access the Quit Smoking Action Plan. Additional smoking cessation resources are also available to all [facility] employees on the Dbxtw8Gnckvn web page at [email or web address] [email or web address]. [place] Tobacco Cessation Program If [employer] is your medical insurance provider, there are more free resources available to you, including: No copays or deductibles on local tobacco cessation counseling services to help you quit Prescription assistance for tobacco cessation medications to help you quit For details about the tobacco cessation program available to [employer] members, go to www.[employer] (Search: Tobacco Cessation Program). [place] Tobacco Quit Line 0-524-UNYN-NOW ( ) is a toll-free, telephonic service that helps [place] residents quit smoking and using tobacco. It is staffed by experts who tailor a quit plan for you and provide you with advice. [place] Tobacco Quit Line 0-476-OSXR-NOW ( ) is a toll-free, telephonic service that helps [place] residents quit smoking and using tobacco. It is staffed by experts who tailor a quit plan for you and provide you with advice. Two weeks of nicotine replacement therapy may be provided at no charge, if needed. Additional Resources These national organizations also offer free information and resources to help you quit tobacco: [place] Cancer Society--www.cancer.org/healthy /stayawayfromtobacco [place] Heart Association--www.heart.org (Search: Quit Smoking) Centers for Disease Control and Prevention--www.cdc.gov/tobacco [place] Lung Association--www.lungusa.org The following attachments cannot be sent through Care Everywhere.Chronic obstructive pulmonary disease (COPD) (Japanese)documented [facility] Miscellaneous Notes Formattin g of this note might be different from the original. Moved 07/03 appt to 10:40^ documented in this encounter [facility]23 Telephone encount er Note Moved 07/03 appt to 10/40 [facility] 06-02-2023 Telephone encount er Note 10:40^ [facility] Evaluation note Diagnosis Psychophysiological insomnia Persistent disorder of initiating or maintaining sleep documented in this [facility]* Diagnosis COPD, severe (CMS-HCC)- Primary Moderate episode of recurrent major depressive disorder (CMS-HCC) Psychophysiological insomnia Persistent disorder of initiating or maintaining sleep Seasonal allergic rhinitis, unspecified trigger Gastroesophageal reflux disease without esophagitis Esophageal reflux Tachycardia Unspecified tachycardia Mixed hyperlipidemia Acquired hypothyroidism Unspecified hypothyroidism [facility] Diagnosis Acquired hypothyroidism- Primary Unspecified hypothyroidism documented in [facility]* Diagnosis COPD, severe (CMS-HCC) Seasonal allergic rhinitis, unspecified trigger documented [facility]* Diagnosis Psychophysiological insomnia Persistent disorder of initiating or maintaining sleep documented [facility]* Diagnosis COPD, severe (CMS-HCC) Seasonal allergic rhinitis, unspecified trigger documented [facility]* Diagnosis Age-related osteoporosis without current pathological fracture documented [facility]* Diagnosis Tachycardia Unspecified tachycardia documented [facility]* Diagnosis Leukocytosis, unspecified type- Primary Vaginal abdias Candidiasis of vulva and vagina Oral abdias Acute cystitis without hematuria Unintentional weight loss Loss of weight documented in this encounter [facility]* Diagnosis Medicare annual wellness visit, subsequent- Primary Acute hemorrhoid Encounter for screening mammogram for malignant neoplasm of breast documented in this encounter [facility]* Diagnosis Psychophysiological insomnia Persistent disorder of initiating or maintaining sleep COPD, severe (CMS-HCC) Seasonal allergic rhinitis, unspecified trigger documented in this encounter [facility]* Diagnosis Acquired hypothyroidism Unspecified hypothyroidism documented in this encounter [facility]ructions[facility] on filedocumented in this encounter [facility] System[facility] on filedocumented in this encounter [facility] filedocumented in this encounter [facility] on filedocumented in this encounter [facility] on filedocumented in this encounter [facility]* Attachments The following attachments cannot be sent through Care Everywhere. * Urinary Tract Infection, Adult ED (Japanese) [facility]* Attachments The following attachments cannot be sent through Care Everywhere. * Hypothyroidism (underactive thyroid) (Japanese) [facility] on [facility] documented in this [facility] SystemInstructionsNot on file documented [facility] Summary Purpose Family History No Family History Records FoundNo Family History Records FoundNo Family History Records FoundNo Family History Records FoundNo Family History Records FoundNo Family History Records Found Advance Directives No Advanced Directives Records FoundNo Advanced Directives Records FoundNo Advanced Directives Records FoundNo Advanced Directives Records FoundNo Advanced Directives Records FoundNo Advanced Directives Records Found Additional Source Comments INFORMATION SOURCE (unrecogn ized section and content) DATE CREATED AUTHOR 05/14/2018 [facility] DATE CREATED AUTHOR AUTHOR'S ORGANIZ ATION 05/15/2018 [facility] DATE CREATED AUTHOR AUTHOR'S ORGANIZ ATION 05/15/2022 [facility] DATE CREATED AUTHOR AUTHOR'S ORGANIZ ATION 08/02/2023 [facility] DATE CREATED AUTHOR AUTHOR'S ORGANIZ ATION 10/19/2023 [facility] DATE CREATED AUTHOR AUTHOR'S ORGANIZ ATION 11/04/2023 [facility] Reason for Visit (unrecogniz ed section and content) Reason Comments Med Refill Reason Comments COPD Hypothyroidism Reason Comments TCM from [facility] 10/13 UTI Reason Comments Annual Exam Medicare Reason Onset Date Comments Med Refill 12/21/2023 Care Teams (unrecognized sec tion and content) Outside Installer Apprentice Relationship Specialty Start Date End Date Jayda Palumbo, COMPOUNDING ASSISTANT-FOUNTAIN MANAGER [address], [place] [address] PCP - General Family Medicine 09/21/21 Outside Installer Apprentice Relationship Specialty Start Date End Date Jayda Palumbo [facility] [address] [place] [address] PCP - General Family Medicine 09/21/21 Outside Installer Apprentice Relationship Specialty Start Date End Date Jayda Palumbo [facility] [address] [place] [address] PCP - General Family Medicine 09/21/21 Outside Installer Apprentice Relationship Specialty Start Date End Date Jayda Palumbo [facility] [address] [place] [address] PCP - General Family Medicine 09/21/21 Outside Installer Apprentice Relationship Specialty Start Date End Date Jayda Palumbo [facility] [address] [place] [address] PCP - General Family Medicine 09/21/21 Outside Installer Apprentice Relationship Specialty Start Date End Date Jayda Palumbo [facility] [address] [place] [address] PCP - General Family Medicine 09/21/21 Outside Installer Apprentice Relationship Specialty Start Date End Date Jayda Palumbo [facility] [address] [place] [address] PCP - General Family Medicine 09/21/21 Outside Installer Apprentice Relationship Specialty Start Date End Date Jayda Palumbo [facility] [address] [place] [id number] PCP - General Family Medicine 09/21/21 Outside Installer Apprentice Relationship Specialty Start Date End Date Jayda Palumbo APRN-[employer]NAGER [address] [place] [address] PCP - General Family Medicine 09/21/21 FOR RECORDS PERTAINING TO PATIENTS WHO ARE OR HAVE BEEN ENROLLED IN A CHEMICAL DEPENDENCY/SUBSTANCEABUSE PROGRAM, SOME INFORMATION MAY BE OMITTED. This clinical summary was aggregated from multiple sources. Caution should be exercised in using it in the provision of clinical care. This summary normalizes information from multiple sources, and as a consequence, information in this document may materially change the coding, format and clinical context of patient data. In addition, data may be omitted in some cases. CLINICAL DECISIONS SHOULD BE BASED ON THE PRIMARY CLINICAL RECORDS. [facility]. provides no warranty or guarantee of the accuracy or completeness of information in this document.
--- NOTE | 2024-06-30 11:59 | ED.GENADUL1 ---
HPI HPI - General Adult General Chief complaint: Weakness Stated complaint: FALL Time Seen by Provider: 06/30/24 11:53 History of Present Illness HPI narrative: 69-year-old female presents for pain in various areas of her body. She states she fell out of bed twice 3 days ago. She complains of pain mostly in her lower back and her right shoulder. She also states she is in pain and is short of breath. She did not hurt her chest or her ribs or hit her head. She states she drinks a little bit of alcohol every 4 days and she drank this morning. She states she does not drink every day. Related Data Home Medications ?Medication ?Instructions ?Recorded ?Confirmed gabapentin 600 mg tablet 600 mg PO BID 09/07/23 06/30/24 levothyroxine 75 mcg tablet 75 mcg PO DAILY 09/07/23 06/30/24 (Synthroid) montelukast 10 mg tablet 10 mg PO DAILY 09/07/23 06/30/24 (Singulair) budesonide-formoterol HFA 80 2 puff inhalation Q12H 10/13/23 06/30/24 mcg-4.5 mcg/actuation aerosol inhaler (Symbicort) gabapentin 300 mg capsule 300 mg PO DAILY 10/13/23 06/30/24 tizanidine 4 mg tablet 8 mg PO BEDTIME 10/13/23 06/30/24 trazodone 150 mg tablet 150 mg PO BEDTIME 10/13/23 06/30/24 Allergies Allergy/AdvReac Type Severity Reaction Status Date / Time latex Allergy Unknown Rash Verified 02/13/24 08:50 adhesive tape AdvReac Mild Rash Verified 02/13/24 08:50 Opioid HPI Opioid Management Most Recent Opioid Data: Last Pain Scale 3 02/13/24, 10:27 Last ORT Total Score 0 10/13/23, 16:11 Last ORT Risk Category Low Risk 10/13/23, 16:11 Ur Phencyclidine Scrn, (NEGATIVE) Negative Today, 12:09 Review of Systems ROS Narrative A ten point review of systems is negative except as noted above. [facility] Medical History (Updated 06/30/24 @ 15:15 by Mario Dong MD) Oral thrush ?B37.0 - Candidal stomatitis (ICD-10) Pharyngitis ?J02.9 - Acute pharyngitis, unspecified (ICD-10) Leukocytosis ?D72.829 - Elevated white blood cell count, unspecified (ICD-10) Urinary tract infection ?N39.0 - Urinary tract infection, site not specified (ICD-10) Muscle pain ?M79.10 - Myalgia, unspecified site (ICD-10) Radon exposure ?X39.01XA - Exposure to radon, initial encounter (ICD-10) Peripheral neuropathy ?G62.9 - Polyneuropathy, unspecified (ICD-10) COPD (chronic obstructive pulmonary disease) ?J44.9 - Chronic obstructive pulmonary disease, unspecified (ICD-10) Social History (Updated 10/13/23 @ 16:31 by Tiffany Benitez) Within the past year, how often did you have a drink containing alcohol: never Within the past year, how many standard drinks containing alcohol did you have on a typical day: 1 or 2 Within the past year, how often did you have six or more drinks on one occasion: never Total score: 0 Score interpretation: A score less than 3 is consistent with normal alcohol consumption. Smoking status: Current some day smoker What tobacco products do you use: cigarettes Cigarettes per day: 2 Highest level of school completed/degree received: high school graduate Little interest or pleasure in doing things: not at all Feeling down, depressed, or hopeless: not at all Exam Narrative Exam Narrative: Nurses note and vital signs reviewed and patient is not hypoxic. General: The patient appears in no acute respiratory distress. She appears uncomfortable. She is quite thin. Skin: Warm, dry, no pallor noted. There is no rash noted. Head: Normocephalic, atraumatic Eye: Normal conjunctiva, no drainage Ears, Nose, Mouth, and Throat: oral mucosa is moist. Nares patent. Cardiovascular: Regular Rate and Rhythm, tachycardic Respiratory: Patient is in no distress, no accessory muscle use, lungs are clear to auscultation, no wheezing, rales or rhonchi; chest wall not tender Back: No bruise or abrasion to her back. GI: Soft and nontender Musculoskeletal: No deformity of the right shoulder or erythema or bruise or abrasion. The lower back is examined there is no bruise or abrasion or focal area of tenderness to palpation Neurological: A&O, normal speech Psychiatric: Cooperative, appears anxious Constitutional Vital Signs, click to edit/add: Last Vital Signs Temp 97.6 F 06/30/24 11:48 Pulse 141 H 06/30/24 11:48 Resp 18 06/30/24 11:48 BP 127/81 06/30/24 11:48 Pulse Ox 89 L 06/30/24 12:31 O2 Del Method Room Air 06/30/24 12:31 O2 Flow Rate 2 06/30/24 12:31 Course Vital Signs Vital signs: Vital Signs Temperature 97.6 F 06/30/24 11:48 Pulse Rate 141 H 06/30/24 11:48 Respiratory Rate 18 06/30/24 11:48 Blood Pressure 127/81 06/30/24 11:48 Pulse Oximetry 90 L 06/30/24 11:48 Oxygen Delivery Method Room Air 06/30/24 11:48 Temperature 97.6 F 06/30/24 11:48 Pulse Rate 141 H 06/30/24 11:48 Respiratory Rate 18 06/30/24 11:48 Blood Pressure 127/81 06/30/24 11:48 Pulse Oximetry 89 L 06/30/24 12:31 Oxygen Delivery Method Room Air 06/30/24 12:31 Oxygen Delivery Flow Rate 2 06/30/24 12:31 Medical Decision Making MDM Narrative Medical decision making narrative: Extensive workup is negative. No evidence of any fractures. No evidence of pneumonia and her blood work is appropriate as well. She was given IV Toradol and is discharged home. The patient is comfortable with that plan. Treatment diagnosis and follow-up were discussed with the patient. Differential Diagnosis Differential Diagnosis: Fall, contusion, fracture Lab Data Lab results reviewed: Yes I reviewed the patient's lab results Labs: Lab Results 06/30/24 06/30/24 Range/Units 12:00 12:09 WBC 10.3 (4.0-11.0) 10^3/uL RBC 4.84 (4.20-5.40) 10^6/uL Hgb 15.0 (12.0-16.0) g/dL Hct 46.1 (36.0-48.0) % MCV 95.2 (81.0-99.0) fL MCH 31.0 (26.7-34.0) pg MCHC 32.5 (29.9-35.2) g/dL RDW 14.1 (11.0-15.0) % Plt Count 175 (150-450) 10^3/uL MPV 10.0 (9.5-13.5) fL Neut % (Auto) 79.4 H (43.0-75.0) % Lymph % (Auto) 10.9 L (20.5-60.0) % [place] % (Auto) 7.0 (1.7-12.0) % Eos % (Auto) 1.0 (0.9-7.0) % Baso % (Auto) 0.8 (0.2-2.0) % Neut # (Auto) 8.2 H (1.4-6.5) 10^3/uL Lymph # (Auto) 1.1 L (1.2-3.8) 10^3/uL [place] # (Auto) 0.7 (0.3-0.8) 10^3/uL Eos # (Auto) 0.1 (0.0-0.7) 10^3/uL Baso # (Auto) 0.1 (0.0-0.1) 10^3/uL Abs Immat Gran (auto) 0.09 H (0.00-0.03) 10^3/uL Imm/Tot Granulo (auto) 0.9 H (0.0-0.5) % Sodium 132 L (136-145) mmol/L Potassium 3.3 L (3.5-5.1) mmol/L Chloride 96 L (98-107) mmol/L Carbon Dioxide 29.8 (21.0-32.0) mmol/L Anion Gap 9.5 BUN 16.0 (7.0-18.0) mg/dL Creatinine 0.84 (0.55-1.02) mg/dL Est GFR ( Amer) >60 (>=60 mL/min/1.73m^2) Est GFR (Non-Af Amer) >60 (>=60 mL/min/1.73m^2) BUN/Creatinine Ratio 19.0 Glucose 124 H (74-106) mg/dL Calcium 8.4 L (8.5-10.1) mg/dL Total Bilirubin 0.6 (0.2-1.0) mg/dL Direct Bilirubin 0.1 (0.0-0.2) mg/dL AST 24 (15-37) U/L ALT 22 (14-59) U/L Alkaline Phosphatase 101 (46-116) U/L Total Protein 6.2 L (6.4-8.2) g/dL Albumin 3.2 L (3.4-5.0) g/dL Globulin 3.0 g/dL Albumin/Globulin Ratio 1.1 Urine Color Dk. yellow (YELLOW) Urine Clarity Clear (CLEAR) Urine pH 6.0 (5.0-9.0) Ur Specific [place] 1.025 (1.005-1.025) Urine Protein 30 A (NEG/TRACE) mg/dL Urine Glucose (UA) Negative (NEGATIVE) mg/dL Urine Ketones Trace A (NEGATIVE) mg/dL Urine Occult Blood Negative (NEGATIVE) Urine Nitrite Negative (NEGATIVE) Urine Bilirubin Small A (NEGATIVE) Urine Urobilinogen 1.0 (0.2-1.0) EU/dL Ur Leukocyte Esterase Small A (NEGATIVE) Urine RBC 2-5 A (0-2) #/HPF Urine WBC 5-10 A (NONE SEEN) #/HPF Ur Squamous Epith Cells Moderate A (NONE/RARE) #/LPF Ur Transition Epith Cell Moderate A (NONE SEEN) #/LPF Urine Crystals None seen (None Seen) #/HPF Urine Bacteria Trace A (NONE SEEN) #/HPF Urine Casts None seen (NONE SEEN) #/LPF Urine Mucus Moderate A (NONE SEEN) Ur [place] [place] O[place] Screen Negative (NEGATIVE) Ur Buprenorphine Scrn Negative (NEGATIVE) Ur Oxycodone Screen Negative (NEGATIVE) Urine Methadone Screen Negative (NEGATIVE) Ur Barbiturates Screen Negative (NEGATIVE) U Tricyclic Antidepress Negative (NEGATIVE) Ur Phencyclidine Scrn Negative (NEGATIVE) Ur Amphetamines Screen Negative (NEGATIVE) U Methamphetamines Scrn Negative (NEGATIVE) U Benzodiazepines Scrn Negative (NEGATIVE) Urine Cocaine Screen Negative (NEGATIVE) U Cannabinoids Screen Positive A (NEGATIVE) Ethanol Quant 11 mg/dL Imaging Data Chest x-ray, lumbar x-ray, shoulder x-ray: Radiologist's impression: No lobar consolidation or edema, chronic grade 1 anterolisthesis of L5 on S1, intact right glenohumeral joint and intact right AC joint ECG Data Attestation: I personally reviewed and interpreted this ECG as follows: (EKG on my interpretation shows sinus rhythm of 137) Discharge Plan Discharge Chief Complaint: Weakness Clinical Impression: Fall Patient Disposition: Home, Self-Care Time of Disposition Decision: 15:15 Condition: Good Mode of Transportation: Private Vehicle Prescriptions / Home Meds: No Action levothyroxine [Synthroid] 75 mcg tablet 75 mcg PO DAILY gabapentin 600 mg tablet 600 mg PO BID montelukast [Singulair] 10 mg tablet 10 mg PO DAILY budesonide-formoterol [Symbicort] 80-4.5 mcg/actuation HFA aerosol inhaler 2 puff INHALATION Q12H tizanidine 4 mg tablet 8 mg PO BEDTIME Rx Instructions: TAKE 1 & 1/2 - 2 (TWO) tablets BY MOUTH AT BEDTIME trazodone 150 mg tablet 150 mg PO BEDTIME gabapentin 300 mg capsule 300 mg PO DAILY Rx Instructions: IN THE AFTERNOON Print Language: Slovenian Instructions: Fall Prevention for Older Adults (ED) Referrals: JAYDA CRUZ [Primary Care Provider, Unknown] - 1 week
[2024-06-30 12:24] LABS: Basophils Absolute Auto 0.1 10^3/uL (0.0-0.1); Basophils Percent Auto 0.8 % (0.2-2.0); Eosinophils Absolute Auto 0.1 10^3/uL (0.0-0.7); Hematocrit 46.1 % (36.0-48.0); Immature Granulocytes Abs Auto 0.09 10^3/uL (0.00-0.03); Immature Granulocytes Pct Auto 0.9 % (0.0-0.5); Lymphocytes Absolute Auto 1.1 10^3/uL (1.2-3.8); Lymphocytes Percent Auto 10.9 % (20.5-60.0); Mean Corpuscular HGB Conc 32.5 g/dL (29.9-35.2); Mean Corpuscular Volume 95.2 fL (81.0-99.0); Monocytes Absolute Auto 0.7 10^3/uL (0.3-0.8); Neutrophils Absolute Auto 8.2 10^3/uL (1.4-6.5); Neutrophils Percent Auto 79.4 % (43.0-75.0); Platelet Count 175 10^3/uL (150-450); Red Blood Count 4.84 10^6/uL (4.20-5.40); Red Cell Distribution Width 14.1 % (11.0-15.0); White Blood Count 10.3 10^3/uL (4.0-11.0)
[2024-06-30 12:27] LABS: Bilirubin Urine SMALL (NEGATIVE); Blood Urine NEGATIVE (NEGATIVE); Clarity Urine CLEAR (CLEAR); Color Urine DK. YELLOW (YELLOW); Glucose Urine UA NEGATIVE (NEGATIVE); Ketones Urine TRACE mg/dL (NEGATIVE); Leukocyte Esterase Urine SMALL (NEGATIVE); Nitrite Urine NEGATIVE (NEGATIVE); Protein Urine 30 mg/dL (NEG/TRACE); Specific Gravity Urine 1.025 (1.005-1.025)
[2024-06-30 12:38] LABS: Amphetamine Screen Urine NEGATIVE (NEGATIVE); Barbiturates Screen Urine NEGATIVE (NEGATIVE); Benzodiazepines Screen Urine NEGATIVE (NEGATIVE); Buprenorphine Screen Urine NEGATIVE (NEGATIVE); Cannabinoid Screen Urine POSITIVE (NEGATIVE); Cocaine Screen Urine NEGATIVE (NEGATIVE); Methadone Screen Urine NEGATIVE (NEGATIVE); Methamphetamines Screen Urine NEGATIVE (NEGATIVE); Opiate Screen Urine NEGATIVE (NEGATIVE); Oxycodone Screen Urine NEGATIVE (NEGATIVE); Phencyclidine Screen Urine NEGATIVE (NEGATIVE); Tricyclic Antidepressant Urine NEGATIVE (NEGATIVE)
[2024-06-30 12:44] LABS: Bacteria Urine TRACE #/HPF (NONE SEEN); Cast Seen? NONE SEEN #/LPF (NONE SEEN); Crystals Seen? None Seen #/HPF (None Seen); Squamous Epithelial Cell Urine MODERATE #/LPF (NONE/RARE); Transitional Epi Cells Urine MODERATE #/LPF (NONE SEEN)
[2024-06-30 12:45] LABS: Mucus Urine MODERATE (NONE SEEN); Urine Culture Indicated YES-FRMC
[2024-06-30 12:49] LABS: Alanine Aminotransferase 22 U/L (14-59); Albumin Globulin Ratio 1.1; Albumin Level 3.2 g/dL (3.4-5.0); Alkaline Phosphatase 101 U/L (46-116); Anion Gap 9.5; Aspartate Amino Transferase 24 U/L (15-37); Bilirubin Direct 0.1 mg/dL (0.0-0.2); Bilirubin Total 0.6 mg/dL (0.2-1.0); Calcium 8.4 mg/dL (8.5-10.1); Carbon Dioxide 29.8 mmol/L (21.0-32.0); Chloride 96 mmol/L (98-107); Estimated GFR (African America >60 (>=60 mL/min/1.73m^2); Estimated GFR (Non-African Ame >60 (>=60 mL/min/1.73m^2); Glucose 124 mg/dL (74-106); Potassium 3.3 mmol/L (3.5-5.1); Sodium 132 mmol/L (136-145); Total Protein 6.2 g/dL (6.4-8.2)
[2024-06-30 12:51] LABS: Ethanol 11 mg/dL
[2024-06-30] MEDS: KETOROLAC TROMETHAMINE 30 MG/ML VIAL IVP (15:27)
== END 2024-06-30 15:29 | disposition home or self-care (01) ==
PROVIDERS: Emergency Provider Emergency Medicine; PCP Nurse Practitioner
DX: Z04.3 Encounter for examination and observation following other accident (principal); R06.02 Shortness of breath; F17.210 Nicotine dependence, cigarettes, uncomplicated; R82.998 Other abnormal findings in urine; Z79.899 Other long term (current) drug therapy
CPT/HCPCS: 36415; 71045; 72100; 73030; 80048; 80076; 80307; 80320; 81001; 85025; 87040; 87086; 93005; 96374; 99285; J1885

== ENCOUNTER 2024-07-13 19:02 | Emergency (ER) | payer MEDICARE, MEDICAID, SELFPAY ==
--- OUTSIDE RECORDS SUMMARY | 2024-07-03 07:35 | XMS_ITS ---
Author Organization OHIP Care Team Providers Care Odd Bundle Worker Name Role Phone ALFONZO SKY Attending Unavailable JAYDA CRUZ Attending Unavailable JAYDA CRUZ Referring Unavailable NANCY, JAYDA Schwab Primary Care Unavailable JAYDA CRUZ Referring Unavailable CRUZ, JAYDA Schwab Primary Care Unavailable JAYDA CRUZ Attending Unavailable JAYDA CRUZ Referring Unavailable CRUZ, JAYDA Schwab Primary Care Unavailable CRUZ, JAYDA Schwab Referring Unavailable CRUZ, JAYDA Zaheer Primary Care Unavailable NANCY, JAYDA Schwab Attending Unavailable CRUZ, JAYDA Schwab Referring Unavailable CRUZ, JAYDA Schwab Primary Care Unavailable NANCY, JAYDA Schwab Attending Unavailable NANCY, JADYA Schwab Referring Unavailable CRUZ, JAYDA Schwab Primary Care Unavailable Sammi Lopez Primary Care Unavailable Donis Dong Attending Unavailable Donis Dong Admitting Unavailable Purpose PROBLEMS DATE TYPE CONDITION / CODE [facility] Radiculopathy, lumbosacral region / M54.17(ICD-10) JAYDA CRUZ Active [facility] 07/03/2024 Unknown Chronic obstruct leti pulmonary disease with (acute) exacerbation / J44.1(ICD-10) JAYDA CRUZ [facility] 11/02/2023 Unknown Encounter for [facility] adult medical examination without abnormal findings / Z00.00(ICD-10) JAYDA CRUZ [facility] 11/02/2023 Unknown Annual Exam / FREETEXT(AOF) JAYDA CRUZ [facility] 10/17/2023 Unknown Elevated white b lood cell count, unspecified / D72.829(ICD-10) JAYDA CRUZ [facility] 10/17/2023 Unknown Acute candidiasi s of vulva and vagina / B37.31(ICD-10) JAYDA CRUZ [facility] 10/17/2023 Unknown Candidal stomati tis / B37.0(ICD-10) JAYDA CRUZ [facility] 10/17/2023 Unknown Acute cystitis w ithout hematuria / N30.00(ICD-10) JAYDA CRUZ [facility] 10/17/2023 Unknown TCM from [facility] 09/22 3 UTI / UNK(Unknown) JAYDA CRUZ [facility] 06/21/2022 Unknown Hypothyroidism, unspecified / E03.9(ICD-10) JAYDA CRUZ [facility] 08/14/2020 Unknown Chronic obstruct leti pulmonary disease, unspecified / J44.9(ICD-10) JAYDA CRUZ [facility] 09/24/2016 Unknown Major depressive disorder, recurrent, moderate / F33.1(ICD-10) JAYDA CRUZ [facility] 07/28/2023 Unknown Gastro-esophagea l reflux disease without esophagitis / K21.9(ICD-10) JAYDA CRUZ [facility] 07/28/2023 Unknown Psychophysiologi c insomnia / F51.04(ICD-10) JAYDA CRUZ [facility] 07/28/2023 Unknown Other seasonal a llergic rhinitis / J30.2(ICD-10) JAYDA CRUZ [facility] 07/28/2023 Unknown Tachycardia, uns pecified / R00.0(ICD-10) JAYDA CRUZ [facility] 07/28/2023 Unknown Mixed hyperlipid emia / E78.2(ICD-10) JAYDA CRUZ [facility] 07/28/2023 Unknown COPD / FREETEXT(AOF) JAYDA CROUCH [facility] 07/28/2023 Unknown Hypothyroidism / FREETEXT(AOF) JAYDA CRUZ [facility] PROCEDURES No Procedure Records Found VITAL SIGNS No Vital Signs Records Found RESULTS URINE CULTURE Observed: 06/30/2024 12:45 PM Status: F Source: [facility] ORGANISM: Lactobacillus kitty enii (O:LACJEN) Como Count 75,000 Organism Comments Organism not Routinely Tested for Susceptibilities PERFORMED BY: [place] [address] PATHOLOGIST CANCER REGISTRY MANAGER KARLA NAVARRETE M.D. Performed By: #### CUU #### [address] CBC AND AUTO DIFF Collected: 10/17/2023 4:01 PM Status: COMPLETED Source: [facility] TYPE CODE TESTS RESULT OUT OF RANGE REFERENCE UNITS LAB WBC(LOINC) WBC COUNT 8.9 4.0-11.0 X10E9/L LAB RBC(LOINC) RBC COUNT 4.65 3.80-5.20 X10E12/L LAB HGB(LOINC) HEMOGLOBIN 15.0 11.7-15.5 g/dL LAB HCT(LOINC) HEMATOCRIT 45.0 35-47 % LAB MCV(LOINC) MCV 97 80-100 fL LAB MCH(LOINC) MCH 32.3 27-34 pg LAB MCHC(LOINC) MCHC 33.4 32-36 g/dL LAB RDW(LOINC) RDW 14.2 11.5-15.0 % LAB PLTC(LOINC) PLATELET COUNT 255 150-450 X10E9 /L LAB MPV(LOINC) MPV 9.0 7-12 fL LAB MYEL(LOINC) MYELOCYTE 1.0 % LAB BAND(LOINC) BAND 6.0 % LAB NEUTM(LOINC) SEG NEUTROPHIL 60.0 % LAB LYMM(LOINC) LYMPHOCYTE 18.0 % LAB MONOM(LOINC) MONOCYTE 14.0 % LAB EOSM(LOINC) EOSINOPHIL 1.0 % LAB ANEUTM(LOINC) ABSOLUTE NEUTROPHILS 5.9 1.5-6.6 X10E9/L LAB ALYMM(LOINC) ABSOLUTE LYMPHOCYTE 1.6 1.0-3.5 X10E9/L LAB AMONOM(LOINC) ABSOLUTE MONOCYTES 1.2 High 0-0.9 X10E9/L LAB AEOSM(LOINC) ABSOLUTE EOSINOPHIL 0.1 0.0-0.4 X10E9/L LAB RBCMOR(LOINC) RBC MORPHOLOGY NORMAL Performed By: #### CBCA #### [facility] ([id number]) [address] [place] [address], [address] [place] [address] CBC AND AUTO DIFF Collected: 07/28/2023 9:51 AM Status: COMPLETED Source: [facility] TYPE CODE TESTS RESULT OUT OF RANGE REFERENCE UNITS LAB WBC(LOINC) WBC COUNT 7.2 4.0-11.0 X10E9/L LAB RBC(LOINC) RBC COUNT 4.91 3.80-5.20 X10E12/L LAB HGB(LOINC) HEMOGLOBIN 15.8 High 11.7-15.5 g/dL LAB HCT(LOINC) HEMATOCRIT 46.4 35-47 % LAB MCV(LOINC) MCV 95 80-100 fL LAB MCH(LOINC) MCH 32.2 27-34 pg LAB MCHC(LOINC) MCHC 34.0 32-36 g/dL LAB RDW(LOINC) RDW 14.1 11.5-15.0 % LAB PLTC(LOINC) PLATELET COUNT 293 150-450 X10E9 /L LAB MPV(LOINC) MPV 7.9 7-12 fL LAB NEUT(LOINC) % NEUTROPHILS 74.7 % LAB LYMP(LOINC) % LYMPHOCYTES 15.5 % LAB MONO(LOINC) % MONOCYTES 8.6 % LAB EOS(LOINC) % EOSINOPHILS 0.3 % LAB BASO(LOINC) % BASOPHILS 0.9 % LAB ANEUT(LOINC) ABSOLUTE NEUTROPHIL 5.4 1.5-6.6 X10E9/L LAB ALYMP(LOINC) ABSOLUTE LYMPHOCYTE 1.1 1.0-3.5 X10E9/L LAB AMONO(LOINC) ABSOLUTE MONOCYTE 0.6 0-0.9 X10E9/L LAB AEOS(LOINC) ABSOLUTE EOSINOPHIL 0.0 0.0-0.4 X10E9/L LAB ABASO(LOINC) ABSOLUTE BASOPHIL 0.1 0.0-0.2 X10E9/L Performed By: #### CBCA, CMP , 32714-2, THYR #### [facility] ([id number]) [address], [address] [place] [address] COMPREHENSIVE METABOLIC PANEL Collected: 2023 9:51 AM Status: COMPLETED Source: [facility] TYPE CODE TESTS RESULT OUT OF RANGE REFERENCE UNITS LAB NA(LOINC) SODIUM 143 134-146 mmol/L LAB K(LOINC) POTASSIUM 4.2 3.5-5.0 mmol/L LAB CL(LOINC) CHLORIDE 102 98-109 mmol/L LAB CO2(LOINC) CARBON DIOXIDE 30 22-32 mmol/L LAB AGAP(LOINC) ANION GAP 11 5-15 mmol/L LAB BUN(LOINC) BLOOD UREA NITROGEN 11 5-27 mg/dL LAB CRET(LOINC) CREATININE 0.71 0.40-1.00 mg/dL Result Comment: METHOD TRACE ABLE TO IDMS STANDARD LAB GLU(LOINC) GLUCOSE 119 High 65-99 mg/dL LAB CA(LOINC) CALCIUM 9.6 8.5-10.5 mg/dL LAB TP(LOINC) TOTAL PROTEIN 6.8 6.0-8.0 g/dL LAB ALB(LOINC) ALBUMIN 4.4 3.2-5.3 g/dL LAB ALK(LOINC) ALKALINE PHOSPHATASE 78 39-130 U/L LAB AST(LOINC) AST 19 0-41 U/L LAB ALT1(LOINC) ALT 12 0-31 U/L LAB TBIL(LOINC) BILIRUBIN,TOTAL 0.7 0.3-1.2 mg/d L LAB EGFR(LOINC) eGFR (CKD-EPI) NON-RACE DEPENDENT >90 >59 ml/min/1 .73sq.m Result Comment: Reported eGFR is based on the CKD-EPI 2020 equation that does not use a race coefficient. Performed By: #### KATERINA PETE , 75112-4, THYR #### [facility] ([id number]) [address] [place], [place] [id number] LIPID PROFILE Collected: 07/28/2023 9:51 AM Status: COMPLETED Source: [facility] TYPE CODE TESTS RESULT OUT OF RANGE REFERENCE UNITS LAB CHOL(LOINC) CHOLESTEROL 230 High 150-200 mg/dL LAB TRIG(LOINC) TRIGLYCERIDE 62 27-150 mg/dL LAB HDL(LOINC) HDL CHOLESTEROL 113 >39 mg/dL Result Comment: HDL <40 mg/dL - High Risk HDL > or = 40mg/dL- Desirable HDL >60 mg/dL - Negative Risk LAB VLDL(LOINC) VERY LOW LIPOPROTEIN 12 0-30 mg/dL LAB LDL(LOINC) LDL (CALC) 105 <130 mg/dL Result Comment: LDL <100 mg/dL - Desirable LDL >160 mg/dL - High Risk LAB CHDL(LOINC) CHOLESTEROL:HDL 2.0 1.0-5.0 Performed By: #### KATERINA PETE , 07392-4, THYR #### [facility] ([id number]) [address] [place] [address], [address] [address] THYROID PROFILE Collected: 07/28/2023 9:51 AM Status: COMPLETED Source: [facility] TYPE CODE TESTS RESULT OUT OF RANGE REFERENCE UNITS LAB TSH(LOINC) TSH 0.05 Low 0.49-4.67 uIU/mL LAB FT4(LOINC) FREE T4 1.60 0.61-1.60 ng/dL Performed By: #### KATERINA PETE , 46409-6, THYR #### [facility] ([id number]) [address] [place] [address], [address] [place] [address] ALLERGIES DATE TYPE / CODE NAME / CODE REACTION SEVERITY SOURCE 07/28/2023 DRUG INGREDI/84692 1003(SNOMED CT) BACLOFEN Other ( See Comments) High [facility] 05/12/2018 Drug Allergy/25821 8002(SNOMED CT) codeine/R522780190 (RXNORM) Nausea Unknown [facility] 03/21/2018 DRUG INGREDI/89457 1003(SNOMED CT) CEPHALEXIN Hives [facility] 04/29/2017 Drug Class~Environ /402367289(SN OMED CT) LATEX, NATURAL RUBBER [facility] 09/08/2016 DRUG INGREDI/80449 1003(SNOMED CT) [facility] ENCOUNTERS ADMIT/DISCHARGE ACCOUNT NUMBER ADMITTING ENCOUNTER CLASS LOCATION SOURCE 07/03/2024/07/04/19 [id number] Ambulatory Buildin 91 [facility] 06/30/2024/07/01/[id number] [facility] 11/02/2023/11/02/19 24 [id number] Ambulatory Buildin 91 [facility] 10/17/2023/10/17/19 24 [id number] Ambulatory Building:PTH _[facility] 10/17/2023/10/17/19 24 [id number] Ambulatory Buildin 91 [facility] 08/02/2023/08/02/19 24 [id number] Ambulatory Building:BSR NEURO [facility] 07/28/2023/07/28/19 24 [id number] Ambulatory Building:PTH _[facility] 07/28/2023/07/28/19 24 [id number] Ambulatory Buildin 91 [facility] FUNCTIONAL STATUS No Functional Status Records Found EQUIPMENT No Equipment Records Found PAYERS ENCOUNTER GUARANTOR PAYER SUBSCRIBER SOURCE 07/03/2024 HARMONY ALTAMIRANO: [id number] [address] [place] [address]Xmu: (HP) Primary Insurance:[place] MEDICAIDPolicy Number: [id number] Date:2015-06-27 HARMONY GEEB: [id number] [place] [address] [facility] 07/03/2024 Secondary Insurance:[facility] MEDICARE DUAL COMPLETE HMOPolicy Number: [id number] Date:2022-03-24 HARMONY GEEB: [id number] [place] [address] [facility] 06/30/[address] [place], [place] [address]Nil: (HP) Primary Insurance:Self PayPolicy Number: Effective Date:2024-06-30 [facility]/2023 HARMONY Zaheer MCGARRYB: [address] [place], [place] [address]Pdf: (HP) Primary Insurance:[place] MEDICAIDPolicy Number: [id number] Date:2015-06-27 HARMONY GEEB: [id number] [place] [address] [facility] 11/02/2023 Secondary Insurance:[facility] MEDICARE DUAL COMPLETEPolicy Number: [id number] Date:2022-03-24 HARMONY J ZEFERINOB: [id number] [place] [address] [facility] 10/17/2023 HARMONY Schwab JOSÉ MIGUELVELMAB: [address] [place], [place] [address]Hpy: (HP) Primary Insurance:[facility] MEDICARE DUAL COMPLETEPolicy Number: [id number] Date:2022-03-24 HARMONY GEEB: [id number] [place], [place] [address]Bem: (HP) [facility] 10/17/2023 Secondary Insura nce:[place] MEDICAIDPolicy Number: [id number] Date:2015-06-27 HARMONY MCGARRYB: [id number] [place], [place] [address]Qle: (HP) [facility] 10/17/2023 HARMONY MCGARRYB: [address] [place], [place] [address]Ide: (HP) [place] Insurance:[place] MED[place]IDPolicy Number: [id number] Date:2015-06-27 HARMONY MCGARRYB: [id number] [place], [place] [address]Sgw: (HP) [facility] 10/17/2023 Secondary Insurance:[employer] MEDICARE DUAL COMPLETEPolicy Number: [id number] Date:2022-03-24 HARMONY MCGARRYB: [id number] [place], [place] [address]Mtd: (HP) [facility] 08/02/2023 HARMONY MCGARRYB: [place] [address]Vty: (HP) [place] Insurance[place] Number: [id number] Date:2018-03-24 HARMONY MCGARRYB: [id number] [place] [address] [facility] 08/02/2023 Secondary Insurance:[facility] MEDICAREPolicy Number: [id number] Date:2022-03-24 HARMONY MCGARRYB: [id number] [place] [address] [facility] 07/28/2023 HARMONY MCGARRYB: [address] [place], [place] [address]Czl: (HP) Primary Insurance:[facility] MEDICARE DUAL COMPLETEPolicy Number: [id number] Date:2022-03-24 HARMONY MCGARRYB: [id number] [place], [place] [address]Gkr: () [facility] 07/28/2023 Secondary Insura nce:[place]Policy Number: [id number] Date:2015-06-27 HARMONY GEEB: [id number] [place], [place] [address]Xyq: () [facility] 07/28/2023 HARMONY GEEB: [address] [place], [place] [address]Mpq: (HP) [place] Insurance[place]Policy Number: [id number] Date:2015-06-27 HARMONY GEEB: [id number] [place], [place] [address]Tvt: (HP) [facility] 07/28/2023 Secondary Insurance:[facility] MEDICARE DUAL COMPLETEPolicy Number: [id number] Date:2022-03-24 HARMONY MCGARRYB: [id number] [place], [place] [address]Bpl: (HP) [facility] SOCIAL HISTORY No Social History Records Found FAMILY HISTORY No Family History Records Found ADVANCE DIRECTIVES No Advanced Directives Records Found INFORMATION SOURCE DATE CREATED AUTHOR AUTHOR'S GRAHAM ATION 07/13/2024 LOLITA
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
[2024-07-13] VITALS (31 sets, daily range): BP systolic 128–173; BP diastolic 74–122; PULSE 94–131; TEMP 36.6; O2SAT 78–97; BMI 14.3
[2024-07-13 19:12] LABS: Glucometer 98 mg/dL (74-106)
--- NOTE | 2024-07-13 19:13 | CT_ITS ---
The [address] [address] Patient Name: ZULEMA GARCIA MRN: [id number] date: 1955 Sex: F Assigned Patient Location: ED.MAIN Current Patient Location: ED.MAIN Accession/Order Number: [id number] Exam Date: 07/13/2024 20:47 Report Date: 07/13/2024 20:49 At the request of: OPAL LAMBERT Procedure: CT stroke head/brain wo con Unenhanced head CTstroke alert TECHNIQUE: Contiguous axial imaging of the head. The CT exam was performed using one or more the following dose reduction techniques: Automated exposure control, adjustment of the MA and/or Kv according to patient size, or use of the iterative reconstruction technique. COMPARISON: None HISTORY: Altered mental status. Tachycardia. VENTRICLES: Within normal limits ATROPHY: Diffuse atrophy BRAIN PARENCHYMA: Decreased density of the white matter is most consistent with chronic small vessel disease. HEMORRHAGE: None HERNIATION: No mass effect or herniation INFARCTION: No recent vascular distribution infarction is seen. EXTRA-AXIAL FLUID COLLECTIONS None MIDBRAIN: Unremarkable BABATUNDE: Unremarkable MEDULLA: Unremarkable SINUSES: Unremarkable ORBITS: Grossly unremarkable MASTOIDS: Unremarkable BONY STRUCTURES Intact ADDITIONAL FINDINGS: CT/CT stroke head/brain wo con IMPRESSION: No acute findings. Preliminary 8:45 PM 07/13/2024 Impression dictated by: Donis Tripathi M.D. 07/13/2024 8:49 PM Dictation Location: [place] [address] Electronically authenticated by: [id number] Y Date: 07/13/2024 20:49
--- NOTE | 2024-07-13 19:13 | XR_ITS ---
The [address] [address] Patient Name: ZULEMA GARCIA MRN: [id number] date: 1955 Sex: F Assigned Patient Location: ED.MAIN Current Patient Location: ED.MAIN Accession/Order Number: [id number] Exam Date: 07/13/2024 20:50 Report Date: 07/13/2024 20:51 At the request of: OPAL LAMBERT Procedure: XR chest 1V Plain film chest Single view HISTORY: Altered mental status. Tachycardia COMPARISON: 06/30/2024 FINDINGS: SUPPORT DEVICES: None POSTSURGICAL CHANGES: None HEART: Within normal limits PULMONARY TANIYA: Within normal limits MEDIASTINUM: Unremarkable LUNGS AND PLEURA: No acute lung process, pleural effusion or pneumothorax identified. BONY STRUCTURES: Intact ADDITIONAL FINDINGS None XR/XR chest 1V IMPRESSION: No acute process. Impression dictated by: Donis Tripathi M.D. 07/13/2024 8:51 PM Dictation Location: [employer] Electronically authenticated by: [id number] Y Date: 07/13/2024 20:51
--- NOTE | 2024-07-13 19:13 | ECG_ITS ---
The [facility] Test Date: 2024-07-13 Pat Name: ZULEMA GARCIA Department: Room: - Gender: Female Social Worker Assistant: : 1955 Requested By: Dylan Mercedes Order Number: [id number] Reading MD: DAVID WALTER M.D. Measurements Intervals [place] Rate: 107 P: -[phone] [place]: 106 QRS: 108 QRSD: 168 T: 61 QT: 408 QTc: 471 Interpretive Statements Sinus tachycardia with premature atrial complexes RIGHT ATRIAL ENLARGEMENT nonspecific ST segment changes 7100 Abnormal right axis deviation 9150 abnormal ECG Compared to ECG 06/30/2024 11:57:34 Premature atrial complexes are now present Electronically Signed On 07-14-2024 9:05:44 EDT by DAVID WALTER M.D.
--- NOTE | 2024-07-13 19:20 | ED.AMS1 ---
HPI - Altered Mental Status General Chief Complaint: Altered Mental Status Stated Complaint: Altered Status Time Seen by Provider: 07/13/24 19:11 History of Present Illness HPI narrative: cc - confusion, altered mentation 69-year-old female brought in by EMS from home after the landlord apparently checked in on her and found her to be acutely confused. EMS reported that they found the patient in bed and the patient was not able to answer orientation questions including name. Patient was reported by EMS to be somewhat combative so they gave the patient 2.5 mg of Versed IV. The patient is unable to give any history of present illness or review of systems. When asked her name she does not respond. She only occasionally will say ow as we undress her. Family arrived and told me that they have not see her is several days and cannot give additional hx other than what we have in the computer re meds. Related Data Home Medications ?Medication ?Instructions ?Recorded ?Confirmed gabapentin 600 mg tablet 600 mg PO BID 09/07/23 07/13/24 levothyroxine 75 mcg tablet 75 mcg PO DAILY 09/07/23 07/13/24 (Synthroid) montelukast 10 mg tablet 10 mg PO DAILY 09/07/23 07/13/24 (Singulair) budesonide-formoterol HFA 80 2 puff inhalation Q12H 10/13/23 07/13/24 mcg-4.5 mcg/actuation aerosol inhaler (Symbicort) gabapentin 300 mg capsule 300 mg PO DAILY 10/13/23 07/13/24 tizanidine 4 mg tablet 8 mg PO BEDTIME 10/13/23 07/13/24 trazodone 150 mg tablet 150 mg PO BEDTIME 10/13/23 07/13/24 famotidine 20 mg tablet 20 mg PO DAILY 07/13/24 07/13/24 Allergies Allergy/AdvReac Type Severity Reaction Status Date / Time latex Allergy Unknown Rash Verified 07/13/24 19:47 adhesive tape AdvReac Mild Rash Verified 07/13/24 19:47 [facility] Medical History (Updated 07/13/24 @ 23:32 by Harmony Denson) Multiple sclerosis ?G35 - Multiple sclerosis (ICD-10) Oral thrush ?B37.0 - Candidal stomatitis (ICD-10) Pharyngitis ?J02.9 - Acute pharyngitis, unspecified (ICD-10) Leukocytosis ?D72.829 - Elevated white blood cell count, unspecified (ICD-10) Urinary tract infection ?N39.0 - Urinary tract infection, site not specified (ICD-10) Muscle pain ?M79.10 - Myalgia, unspecified site (ICD-10) Radon exposure ?X39.01XA - Exposure to radon, initial encounter (ICD-10) Peripheral neuropathy ?G62.9 - Polyneuropathy, unspecified (ICD-10) COPD (chronic obstructive pulmonary disease) ?J44.9 - Chronic obstructive pulmonary disease, unspecified (ICD-10) Social History (Updated 10/13/23 @ 16:31 by Tiffany Benitez) Within the past year, how often did you have a drink containing alcohol: never Within the past year, how many standard drinks containing alcohol did you have on a typical day: 1 or 2 Within the past year, how often did you have six or more drinks on one occasion: never Total score: 0 Score interpretation: A score less than 3 is consistent with normal alcohol consumption. Smoking status: Current some day smoker What tobacco products do you use: cigarettes Cigarettes per day: 2 Highest level of school completed/degree received: high school graduate Little interest or pleasure in doing things: not at all Feeling down, depressed, or hopeless: not at all Exam Narrative Exam Narrative: Nurses notes and vital signs reviewed and patient is not hypoxic. afebrile General: Well-appearing and in no apparent distress. Skin: Warm, dry, no pallor noted. No rash. Head: Normocephalic, atraumatic -no sign of injury. Neck: Supple, trachea midline. No ecchymosis, abrasion, laceration or exterior sign of injury Eye: Pupils are equal, round and EOMI. No scleral icterus. Ears, Nose, Mouth, and Throat: No facial or oral injury. Oral mucosa is dry Cardiovascular: Regular Rate and Rhythm without murmur, gallop or rub. Respiratory: No accessory muscle use or respiratory distress. Lungs are clear to auscultation, no wheezing, rales or rhonchi Chest Wall: no tenderness, crepitus, subcutaneous emphysema or exterior sign of injury. Back: No midline thoracic or lumbar vertebral tenderness. No ecchymosis, swelling or exterior sign of injury. Musculoskeletal: no calf or popliteal tenderness, no lower extremity edema/swelling GI: Abdomen is soft, non-distended. Decreased bowel sounds. No solid or pulsatile masses appreciated. No focal or generalized tenderness to palpation. No rebound, guarding, or rigidity noted. Neurological: Eyes are open and she looks around, sometimes returning to us as we talk to her. She does not answer questions. She occasionally will respond with 1 or 2 words. Patient does not follow commands and therefore unable to assess cranial nerve dysfunction -although no obvious deficit is observed. Moves all extremities. Sensation is intact. Psychiatric: Does not answer questions or follow commands. Constitutional Vital Signs, click to edit/add: Last Vital Signs Temp 98 F 07/13/24 19:20 Pulse 100 H 07/13/24 23:40 Resp 23 H 07/13/24 23:40 BP 134/74 07/13/24 23:30 Pulse Ox 95 07/13/24 23:40 O2 Del Method Room Air 07/13/24 19:20 Course Vital Signs Vital signs: Vital Signs Pulse Rate 112 H 07/13/24 19:11 Respiratory Rate 54 H 07/13/24 19:11 Pulse Oximetry 94 L 07/13/24 19:11 Temperature 98 F 07/13/24 19:20 Pulse Rate 100 H 07/13/24 23:40 Respiratory Rate 23 H 07/13/24 23:40 Blood Pressure 134/74 07/13/24 23:30 Pulse Oximetry 95 07/13/24 23:40 Oxygen Delivery Method Room Air 07/13/24 19:20 MDM - Altered Mental Status MDM Narrative Medical decision making narrative: Bedside glucose 98. Patient was placed on nuclear monitoring technician and EKG obtained. Blood drawn and sent for evaluation, including lactate, blood cultures per sepsis protocol as well as ammonia, acetaminophen, salicylate and alcohol levels. Patient was ordered to receive a liter of normal saline IV fluid. Baptiste catheter was also placed and urine obtained and sent for testing. She was ordered to undergo a stat CT of the brain due to her altered mentation and uncertain etiology including potential for unwitnessed fall. Portable chest x-ray was also obtained. EKG showed atrial fibrillation with rapid ventricular response at 107 bpm. White blood cell count rated at 15.1 left is noted. Lactate is negative. Blood cultures are pending. Urinalysis shows findings consistent with acute UTI with elevated leukocyte esterase and white blood cell count, moderate blood, small bacteria. Urine cultures pending. Ammonia normal. Acetone = small Troponin elevated at 150.6, with BNP elevated at 1711. Repeat troponin 160. CK-MB elevated. This may suggest acute rhabdomyolysis but the patient has normal renal function. Chest x-ray and head CT were unremarkable. Patient intermittently The patient also had rapid atrial fibrillation. She would quickly go back to sub 100 bpm rate before then increasing. Eventually she was given 20 mg Cardizem to control this. She was also given heparin bolus and drip to treat her suspected non-ST elevation acute myocardial infarction. Call was placed to the hospitalist at [facility]. I spoke with Dr. Hodge and he excepted this patient's transfer to their facility. We are currently awaiting transportation to take this patient. Patient's family was informed of our findings and we discussed the results and need for transfer to [facility]. Patient remains confused and not able to express understanding of her diagnosis or her plan for care. Ambulance arrived at 0025 - She is stable for transfer. Medical Records Attestation: I reviewed the patient's medical records. Lab Data Attestation: I reviewed the patient's lab results. Labs: Lab Results 07/13/24 07/13/24 07/13/24 Range/Units 19:11 19:20 20:20 WBC 15.1 H (4.0-11.0) 10^3/uL RBC 5.03 (4.20-5.40) 10^6/uL Hgb 15.2 (12.0-16.0) g/dL Hct 46.5 (36.0-48.0) % MCV 92.4 (81.0-99.0) fL MCH 30.2 (26.7-34.0) pg MCHC 32.7 (29.9-35.2) g/dL RDW 14.1 (11.0-15.0) % Plt Count 392 (150-450) 10^3/uL MPV 8.9 L (9.5-13.5) fL Neut % (Auto) 84.7 H (43.0-75.0) % Lymph % (Auto) 5.6 L (20.5-60.0) % Colbert % (Auto) 6.5 (1.7-12.0) % Eos % (Auto) 0.2 L (0.9-7.0) % Baso % (Auto) 0.5 (0.2-2.0) % Neut # (Auto) 12.8 H (1.4-6.5) 10^3/uL Lymph # (Auto) 0.8 L (1.2-3.8) 10^3/uL Colbert # (Auto) 1.0 H (0.3-0.8) 10^3/uL Eos # (Auto) 0.0 (0.0-0.7) 10^3/uL Baso # (Auto) 0.1 (0.0-0.1) 10^3/uL Abs Immat Gran (auto) 0.38 H (0.00-0.03) 10^3/uL Imm/Tot Granulo (auto) 2.5 H (0.0-0.5) % ESR 11 (<=30) mm/hr PT 12.0 H (9.0-11.6) sec INR 1.15 APTT 27.3 (22.3-36.2) sec Sodium 137 (136-145) mmol/L Potassium 4.7 (3.5-5.1) mmol/L Chloride 100 (98-107) mmol/L Carbon Dioxide 30.4 (21.0-32.0) mmol/L Anion Gap 11.3 BUN 13.0 (7.0-18.0) mg/dL Creatinine 0.49 L (0.55-1.02) mg/dL Est GFR ( Amer) >60 (>=60 mL/min/1.73m^2) Est GFR (Non-Af Amer) >60 (>=60 mL/min/1.73m^2) BUN/Creatinine Ratio 26.5 Glucose 89 (74-106) mg/dL Lactate 1.4 (0.4-2.0) mmol/L Calcium 9.2 (8.5-10.1) mg/dL Phosphorus 3.9 (2.6-4.7) mg/dL Magnesium 2.3 (1.8-2.4) mg/dL Total Bilirubin 0.9 (0.2-1.0) mg/dL AST 42 H (15-37) U/L ALT 25 (14-59) U/L Alkaline Phosphatase 131 H (46-116) U/L Ammonia 27 (11-32) umol/L CK-MB (CK-2) 3.96 H* (<=3.60) ng/mL Troponin I High Sens 150.6 H* (4.0-51.3) pg/mL C-Reactive Protein 0.51 H (<=0.50) mg/dL NT-Pro-B Natriuret Pep 1711.0 H* (<=900.0) pg/mL Total Protein 6.6 (6.4-8.2) g/dL Albumin 3.3 L (3.4-5.0) g/dL Globulin 3.3 g/dL Albumin/Globulin Ratio 1.0 TSH 2.263 (0.358-3.740) uIU/mL Urine Color Yellow (YELLOW) Urine Clarity Sl cloudy (CLEAR) Urine pH 6.0 (5.0-9.0) Ur Specific Gary 1.025 (1.005-1.025) Urine Protein 100 A (NEG/TRACE) mg/dL Urine Glucose (UA) Negative (NEGATIVE) mg/dL Urine Ketones >=80 A (NEGATIVE) mg/dL Urine Occult Blood Moderate A (NEGATIVE) Urine Nitrite Negative (NEGATIVE) Urine Bilirubin Small A (NEGATIVE) Urine Urobilinogen 1.0 (0.2-1.0) EU/dL Ur Leukocyte Esterase Small A (NEGATIVE) Urine RBC 0-2 (0-2) #/HPF Urine WBC 10-20 A (NONE SEEN) #/HPF Ur Squamous Epith Cells Few A (NONE/RARE) #/LPF Urine Crystals None seen (None Seen) #/HPF Urine Bacteria Small A (NONE SEEN) #/HPF Urine Casts None seen (NONE SEEN) #/LPF Urine Mucus Large A (NONE SEEN) Ur Culture Indicated[place] [place] Salicylates <2.8 (<=19.9) mg/dL Acetaminophen <2.0 L (10.0-30.0) ug/mL Ethanol Quant <3 mg/dL Acetone, Qual Small A (NEGATIVE) SARS-CoV-2 Ag (CV2AG) (NEGATIVE) POC Glucose 98 (74-106) mg/dL 07/13/24 07/13/24 Range/Units 20:45 22:15 WBC (4.0-11.0) 10^3/uL RBC (4.20-5.40) 10^6/uL Hgb (12.0-16.0) g/dL Hct (36.0-48.0) % MCV (81.0-99.0) fL MCH (26.7-34.0) pg MCHC (29.9-35.2) g/dL RDW (11.0-15.0) % Plt Count (150-450) 10^3/uL MPV (9.5-13.5) fL Neut % (Auto) (43.0-75.0) % Lymph % (Auto) (20.5-60.0) % Colbert % (Auto) (1.7-12.0) % Eos % (Auto) (0.9-7.0) % Baso % (Auto) (0.2-2.0) % Neut # (Auto) (1.4-6.5) 10^3/uL Lymph # (Auto) (1.2-3.8) 10^3/uL Colbert # (Auto) (0.3-0.8) 10^3/uL Eos # (Auto) (0.0-0.7) 10^3/uL Baso # (Auto) (0.0-0.1) 10^3/uL Abs Immat Gran (auto) (0.00-0.03) 10^3/uL Imm/Tot Granulo (auto) (0.0-0.5) % ESR (<=30) mm/hr PT (9.0-11.6) sec INR APTT (22.3-36.2) sec Sodium (136-145) mmol/L Potassium (3.5-5.1) mmol/L Chloride (98-107) mmol/L Carbon Dioxide (21.0-32.0) mmol/L Anion Gap BUN (7.0-18.0) mg/dL Creatinine (0.55-1.02) mg/dL Est GFR ( Amer) (>=60 mL/min/1.73m^2) Est GFR (Non-Af Amer) (>=60 mL/min/1.73m^2) BUN/Creatinine Ratio Glucose (74-106) mg/dL Lactate (0.4-2.0) mmol/L Calcium (8.5-10.1) mg/dL Phosphorus (2.6-4.7) mg/dL Magnesium (1.8-2.4) mg/dL Total Bilirubin (0.2-1.0) mg/dL AST (15-37) U/L ALT (14-59) U/L Alkaline Phosphatase (46-116) U/L Ammonia (11-32) umol/L CK-MB (CK-2) (<=3.60) ng/mL Troponin I High Sens 160.0 H* (4.0-51.3) pg/mL C-Reactive Protein (<=0.50) mg/dL NT-Pro-B Natriuret Pep (<=900.0) pg/mL Total Protein (6.4-8.2) g/dL Albumin (3.4-5.0) g/dL Globulin g/dL Albumin/Globulin Ratio TSH (0.358-3.740) uIU/mL Urine Color (YELLOW) Urine Clarity (CLEAR) Urine pH (5.0-9.0) Ur Specific Gary (1.005-1.025) Urine Protein (NEG/TRACE) mg/dL Urine Glucose (UA) (NEGATIVE) mg/dL Urine Ketones (NEGATIVE) mg/dL Urine Occult Blood (NEGATIVE) Urine Nitrite (NEGATIVE) Urine Bilirubin (NEGATIVE) Urine Urobilinogen (0.2-1.0) EU/dL Ur Leukocyte Esterase (NEGATIVE) Urine RBC (0-2) #/HPF Urine WBC (NONE SEEN) #/HPF Ur Squamous Epith Cells (NONE/RARE) #/LPF Urine Crystals (None Seen) #/HPF Urine Bacteria (NONE SEEN) #/HPF Urine Casts (NONE SEEN) #/LPF Urine Mucus (NONE SEEN) Ur Culture Indicated? Salicylates (<=19.9) mg/dL Acetaminophen (10.0-30.0) ug/mL Ethanol Quant mg/dL Acetone, Qual (NEGATIVE) SARS-CoV-2 Ag (CV2AG) Negative (NEGATIVE) POC Glucose (74-106) mg/dL Imaging Data Chest x-ray: Attestation: I have reviewed the pertinent imaging results. Radiologist's impression: ITS Impressions Brain CT 07/13/24 19:13 IMPRESSION: No acute findings. Preliminary 8:45 PM 07/13/2024 Impression dictated by: Donis Tripathi M.D. 07/13/2024 8:49 PM Dictation Location: [employer] Electronically authenticated by: [id number] Y Date: 07/13/2024 20:49 Chest X-Ray 07/13/24 19:13 IMPRESSION: No acute process. Impression dictated by: Donis Tripathi M.D. 07/13/2024 8:51 PM Dictation Location: [employer] Electronically authenticated by: [id number] Y Date: 07/13/2024 20:51 ECG Data Attestation: I personally reviewed and interpreted this ECG as follows: Interpretation: EKG interpretation: Emergency Department physician interpretation. Rapid atrial fibrillation at 107bpm. Right axis deviation, nonspecific intraventricular conduction block with QRS duration greater 130 ms, inferior and lateral ST depression but no ST segment elevation. Discharge Plan Discharge Chief Complaint: Altered Mental Status Clinical Impression: Non-ST elevated myocardial infarction (non-STEMI), Acute UTI, Acute alteration in mental status, Atrial fibrillation with rapid ventricular response Patient Disposition: [facility] Time of Disposition Decision: 23:04 Discharge Location: [facility]
--- OUTSIDE RECORDS SUMMARY | 2024-07-13 19:21 | XMS_ITS | Encounter Summary ---
Author Organization [facility] tem Address [id number] [address] [place] [address] Care Team Providers Care Java Web Services Developer Name Role Phone Bea Palumbo TRAUMA MANAGER-ICE CREAM SHOP ASSOCIATE Primary Care Provid er Encounter Details Date Type Department Care Team (Latest Contact Info) Description 07/03/2024 Travel Social History Tobacco Use Types Packs/Day Years [...] on file documented as of this encounter Plan of Treatment Upcoming Encounters Date Type Department Care Team (Late st Contact Info) Description 08/07/2024 9:00 AM EDT Office Visit [facility] Internal Medicine - Family Medicine [address] [place] [address] PalumboBea eric APRN-CHRISTIANO [address] [place] [phone] documented as of this encounter Visit Diagnoses Not on filedocumented in this encounter Additional Health Concerns Assessment Noted Time PHQ-9 Depression Total Score: 0 07/04/19 25 7:49 AM EDT A Body Mass Index follow-up plan has been documented for the patient 07/03/2024 8:29 AM EDT documented as of this encounter Care Teams Java Web Services Developer Relationship Specialty Start Date End Date Bea Palumbo APRN-CNP [address] [place] [phone] PCP - General Family Medicine 09/21/21 documented as of this encounter
--- OUTSIDE RECORDS SUMMARY | 2024-07-13 19:21 | XMS_ITS | Encounter Summary ---
Author Organization [employer] tem Address [id number] [address] [place] [address] Care Team Providers Care Field Pipe Lines Supervisor Name Role Phone Bea Palumbo METALLOGRAPHIC TECHNICIAN-TOPPER PACKER Primary Care Provid er Encounter Details Date Type Department Care Team (Late st Contact Info) Description 01/11/2024 Telephone [facility] Internal [facility] - Family Medicine [address] [facility] [place] [phone] Heidi Montes De Oca CMA Social History Tobacco Use Types Packs/Day Years Used Date Smoking Tobacco: Every Day Cigarettes 1 20 Started: 09/07/2002; Last attempted to quit: 09/07/2022 Smokeless Tobacco: Never Comments:4 a day Alcohol Use Standard Drinks/Week Comments No 0 (1 standard drink = 0.6 oz pur e alcohol) PHQ-2 Answer Date Recorded Total Score 6 11/02/2023 Childcare Answer Date Recorded Childcare Unknown 07/21/2018 Employment Answer Date Recorded Employment Unknown 07/21/2018 Hunger Screening Answer Date Recorded Within the past 12 months we worried whether our food would run out before we got money to buy more. Never True 10/17/2023 Within the past 12 months th e food we bought just didn't last and we didn't have money to get more. Never True 10/17/2023 Purpose - Life Answer Date Recorded Purpose and direction in life Unknown Comments No Sex and Gender Information Value Date Recorded Sex Assigned at Not on file Legal Sex Female 11:37 AM EDT Gender Identity Not on file Sexual Orientation Not on file documented as of this encounter Miscellaneous Notes * Telephone Encounter - Heidi Montes De Oca CMA - 01/11/2024 10:16 AM EST Pt called for refills on singular and trazadone. It looks like the refills were sent in to the pharmacy on 12/21/2023 with 90 days and 1 refill. I called the pt to make sure that she is taking them as prescribed since she should have some until Feb. * Telephone Encounter - ESHA Michel - 01/11/2024 10:16 AM EST I reordered for her again. Maybe pharmacy did not receive order. documented in this encounter Plan of Treatment Upcoming Encounters Date Type Department Care Team (Late st Contact Info) Description 08/07/2024 9:00 AM EDT Office Visit [facility] - Family Medicine [address] [place] [address] Bea Palumbo APRN-CNP [address] [place] [phone] documented as of this encounter Visit Diagnoses Diagnosis Psychophysiological insomnia Persistent disorder of initiating or maintaining sleep COPD, severe ([facility]) Seasonal allergic rhinitis, unspecified trigger documented in this encounter Additional Health Concerns Assessment Noted Time PHQ-9 Depression Total Score: 6 11/02/19 24 8:06 AM EDT A Body Mass Index follow-up plan has been documented for the patient 11/02/2023 8:55 AM EDT documented as of this encounter Care Teams Field Pipe Lines Supervisor Relationship Specialty Start Date End Date Bea Palumbo APRN-CNP [address] [place] [address] PCP - General Family Medicine 09/21/21 documented as of this encounter
--- OUTSIDE RECORDS SUMMARY | 2024-07-13 19:21 | XMS_ITS | Encounter Summary ---
Author Organization [email or web address] tem Address [id number] [address] [place] [address] Care Team Providers Care Barrel Line Operator Name Role Phone Bea Palumbo CRYSTAL CUTTER-LITHOGRAPH PRESS OPERATOR TINWARE Primary Care Provid er Encounter Details Date Type Department Care Team (Late Contact Info) Description 12/21/2023 Telephone [facility] Internal [facility] - Family Medicine [address] [facility] [phone] Chandler, Mamie, PHOTOSTATIC COPY MAKER Social History Tobacco Use Types Packs/Day Years [...] Upcoming Encounters Date Type Department Care Team ([facility] Contact Info) Description 08/07/2024 9:00 AM EDT Office Visit [facility] - Family Medicine [address] [place] [phone] Bea Palumbo APRN-CNP [address] [place] [phone] documented as of this encounter Visit Diagnoses Not on filedocumented in this encounter Additional Health Concerns Assessment Noted Time PHQ-9 Depression Total Score: 6 11/02/19 24 8:06 AM EDT A Body Mass Index follow-up plan has been documented for the patient 11/02/2023 8:55 AM EDT documented as of this encounter Care Teams Barrel Line Operator Relationship Specialty Start Date End Date Bea Palumbo APRN-CNP [address] [place] [phone] PCP - General Family Medicine 09/21/21 documented as of this encounter
--- OUTSIDE RECORDS SUMMARY | 2024-07-13 19:21 | XMS_ITS | Encounter Summary ---
Author Organization [email or web address] Address [id number] [address] [place] [address] Care Team Providers Care Metal Crafts Teacher Name Role Phone Bea Palumbo EQUIPMENT INSTALLATION PROFESSIONAL-TUFT MACHINE OPERATOR Primary Care Provid er Encounter Details Date Type Department Care Team (Late st Contact Info) Description 08/01/2023 Telephone [facility] - Family Medicine [address] [facility] [place] [phone] Lissette Vogel CMA Social History Tobacco Use Types Packs/Day Years Used Date Smoking Tobacco: Every Day Cigarettes 1 20 Started: 09/07/2002; Last attempted to quit: 09/07/2022 Smokeless Tobacco: Never Comments:4 a day Alcohol Use Standard Drinks/Week Comments No 0 (1 standard drink = 0.6 oz pur e alcohol) PHQ-2 Answer Date Recorded Total Score 0 07/28/2023 Childcare Answer Date Recorded Childcare Unknown 07/21/2018 Employment Answer Date Recorded Employment Unknown 07/21/2018 Hunger Screening Answer Date Recorded Within the past 12 months we worried whether our food would run out before we got money to buy more. Never True 07/28/2023 Within the past 12 months th e food we bought just didn't last and we didn't have money to get more. Never True 07/28/2023 Purpose - Life Answer Date Recorded Purpose and direction in life Unknown Comments No Sex and Gender Information Value Date Recorded Sex Assigned at Not on file Legal Sex Female 11:37 AM EDT Gender Identity Not on file Sexual Orientation Not on file documented as of this encounter Miscellaneous Notes * Telephone Encounter - Lissette Vogel CMA - 08/01/2023 2:58 PM EDT ----- Message from ESHA Michel sent at 08/01/2023 1:49 PM EDT ----- Reviewed. Inform patient her thyroid is running to fast . I decreased her levothyroxine dose to 75mcg oral daily. Please make sure she repeats understanding to dose change. documented in this encounter Plan of Treatment Upcoming Encounters Date Type Department Care Team (Late st Contact Info) Description 08/07/2024 9:00 AM EDT Office Visit [facility] - Family Medicine [address] [place] [phone] Bea Palumbo APRN-CNP [address] [place] [address] documented as of this encounter Visit Diagnoses Not on filedocumented in this encounter Additional Health Concerns Assessment Noted Time PHQ-9 Depression Total Score: 0 07/28/19 24 9:05 AM EDT A Body Mass Index follow-up plan has been documented for the patient 07/28/2023 10:56 AM EDT documented as of this encounter Care Teams Metal Crafts Teacher Relationship Specialty Start Date End Date Bea Palumbo APRN-CNP [address] [place] [address] PCP - General Family Medicine 09/21/21 documented as of this encounter
--- OUTSIDE RECORDS SUMMARY | 2024-07-13 19:21 | XMS_ITS | Encounter Summary ---
Author Organization [employer] Address [id number] [address] [place] [address] Care Team Providers Care Clerical Warehouse Worker Name Role Phone Bea Palumbo MICA MACHINE OPERATOR-RADIO TALK SHOW HOST Primary Care Provid er Encounter Details Date Type Department Care Team (Late st Contact Info) Description 01/11/2024 Telephone [facility] - Family Medicine [address] [facility] [place] [phone] Mamie Arteaga CMA Social History Tobacco Use Types Packs/Day [...] encounter Miscellaneous Notes * Telephone Encounter - Mamie Arteaga CMA - 01/11/2024 11:55 AM EST Pt called back , she want you to know she is still having issues with her bm's she's using softens and still having issues , also I asked her if she picked up those meds in November she said she wasn't sure .. Just a heads up * Telephone Encounter - ESHA Michel - 01/11/2024 11:55 AM EST She needs to see a GI specialist to further address this issue. I use Trevor. Ask her if this is ok? * Telephone Encounter - Mamie Arteaga CMA - 01/11/2024 11:55 AM EST Called left vm to cb * Telephone Encounter - Mamie Arteaga CMA - 01/11/2024 11:55 AM EST Called left vm to cb * Telephone Encounter - Mamie Arteaga CMA - 01/11/2024 11:55 AM EST Called pt again no answer , called brother said he would try and get ahold of her documented in this encounter Plan of Treatment Upcoming Encounters Date Type Department Care Team (Late st Contact Info) Description 08/07/2024 9:00 AM EDT Office Visit [facility] - Family Medicine [address] [place] [phone] Bea Palumbo APRN-CNP [address] [place] [phone] documented as of this encounter Visit Diagnoses Not on filedocumented in this encounter Additional Health Concerns Assessment Noted Time PHQ-9 Depression Total Score: 6 11/02/19 24 8:06 AM EDT A Body Mass Index follow-up plan has been documented for the patient 11/02/2023 8:55 AM EDT documented as of this encounter Care Teams Clerical Warehouse Worker Relationship Specialty Start Date End Date Bea Palumbo, MICA MACHINE OPERATOR-RADIO TALK SHOW HOST [address] [place] [address] PCP - General Family Medicine 09/21/21 documented as of this encounter
--- OUTSIDE RECORDS SUMMARY | 2024-07-13 19:21 | XMS_ITS | Encounter Summary ---
Author Organization [employer] Address [facility] [id number] [address] [place] [address] Care Team Providers Care Maxillofacial Prosthetics Dentist Name Role Phone Bea Palumbo PROGRAM MANAGEMENT PROFESSIONAL-RUBBER CUTTER Primary Care Provid er Encounter Details Date Type Department Care Team (Late st Contact Info) Description 02/14/2024 Orders Only [facility] Internal Medicine - Family Medicine [address] [place] [phone] Bea Palumbo, PROGRAM MANAGEMENT PROFESSIONAL-[facility] [address] [place] [phone] Social History Tobacco Use Types Packs/Day Years [...] Medicine - Family Medicine [address] [place] [address] Bea Palumbo APRN-RUBBER CUTTER [address] [place] [address] documented as of this encounter Visit Diagnoses Not on filedocumented in this encounter Additional Health Concerns Assessment Noted Time PHQ-9 Depression Total Score: 6 11/02/19 24 8:06 AM EDT A Body Mass Index follow-up plan has been documented for the patient 11/02/2023 8:55 AM EDT documented as of this encounter Care Teams Maxillofacial Prosthetics Dentist Relationship Specialty Start Date End Date Bea Palumbo, PROGRAM MANAGEMENT PROFESSIONAL-RUBBER CUTTER [address] [place] [address] PCP - General Family Medicine 09/21/21 documented as of this encounter
--- OUTSIDE RECORDS SUMMARY | 2024-07-13 19:21 | XMS_ITS | Encounter Summary ---
Author Organization [employer] Address [facility] [id number] [address] [place] [address] Care Team Providers Care Demolition Worker Name Role Phone Bea Palumbo MANAGER UNION-FLARING MACHINE OPERATOR Primary Care Provid er Encounter Details Date Type Department Care Team (Late st Contact Info) Description 10/20/2023 Telephone [facility] - Family Medicine [address] [facility] [place] [phone] Mamie Arteaga CMA Social History Tobacco Use [...] Telephone Encounter - Mamie Arteaga CMA - 10/20/2023 9:25 AM EDT Pt called thinks she may have black mold posioning , can she be tested , she thinks that's why she dont have an appatite and he asthma is flaring up documented in this encounter Plan of Treatment Upcoming Encounters Date Type Department Care Team (Late st Contact Info) Description 08/07/2024 9:00 AM EDT Office Visit [facility] - Family Medicine [address] [place] [address] Bea Palumbo, ALBERTINA-FLARING MACHINE OPERATOR [address] [place] [address] documented as of this encounter Visit Diagnoses Not on filedocumented in this encounter Additional Health Concerns Assessment Noted Time PHQ-9 Depression Total Score: 0 07/28/19 24 9:05 AM EDT A Body Mass Index follow-up plan has been documented for the patient 10/25/2023 9:11 AM EDT documented as of this encounter Care Teams Demolition Worker Relationship Specialty Start Date End Date Bea Palumbo APRN-CHRISTIANO [address] [place] [address] PCP - General Family Medicine 09/21/21 documented as of this encounter
--- OUTSIDE RECORDS SUMMARY | 2024-07-13 19:21 | XMS_ITS | Encounter Summary ---
Author [id number] [address] [place] [address] Care Team Providers Care Multiskill Operator Name Role Phone Bea Palumbo TRAVEL MANAGER-RADIATION THERAPY TECHNICIAN Primary Care Provid er Encounter Details Date Type Department Care Team (Late Contact Info) Description 09/12/2023 Orders Only [facility] Internal [facility] - Family Medicine [address] [place] [phone] Ref Prov, [place] [address] Social History Tobacco Use Types Packs/Day Years [...] Encounters Date Type Department Care Team (Late Contact Info) Description 08/07/2024 9:00 AM EDT Office Visit [facility] - Family Medicine [address] [place] [place] [phone] Bea Palumbo APRN-CNP [address] [place] [phone] documented as of this encounter Procedures Procedure Name Priority Date/Time Associated Diagnosis Comments XR HIP LT 1 VIEW W OR WO PELVIS Routine 09/09/2023 1:37 PM EDT XR LUMBAR SPINE AP, LATERAL, FLEXION AND EXTENSION ONLY Routine 09/09/2023 1:13 PM EDT documented in this encounter Results * X-ray hip left 1 view with or without pelvis (09/09/2023 1:37 PM EDT) Anatomical Region Laterality Modality Lower Extremities, MSK, Hip Left Comp uted Radiography us Not In System Ref Prov IMG DIAGNOSTIC IMAGING OR DERABLES Final Result * X-ray spine lumbar ap, lateral, flexion and extension only (09/09/2023 1:13 PM EDT) Anatomical Region Laterality Modality MSK, Neuro, Spine, L-spine N/A Compu paolo Radiography us Not In System Ref Prov IMG DIAGNOSTIC IMAGING OR DERABLES Final Result documented in this encounter Visit Diagnoses Not on filedocumented in this encounter Additional Health Concerns Assessment Noted Time PHQ-9 Depression Total Score: 0 07/28/19 24 9:05 AM EDT A Body Mass Index follow-up plan has been documented for the patient 07/28/2023 10:56 AM EDT documented as of this encounter Care Teams Multiskill Operator Relationship Specialty Start Date End Date Bea Palumbo APRN-CHRISTIANO [address] [place] [phone] PCP - General Family Medicine 09/21/21 documented as of this encounter
--- OUTSIDE RECORDS SUMMARY | 2024-07-13 19:21 | XMS_ITS | Clinical Summary ---
Author Organization [facility] Address [id number] [address] [place] [address] Care Team Providers Care Land Leases And Rentals Manager Name Role Phone Bea Palumbo EDGE SETTER-LEAD HANDLER Primary Care Provid er Allergies Active Allergy Reactions Criticality Noted Date Comments Baclofen Other (See Comments) High 07/28/2023 Unable to void when taking Codeine 09/08/2016 Makes her high , hallucinations Cephalexin Hives 03/21/2018 Latex, Natural Rubber 04/29/2017 blisters Medications * This document contains information received from the source organization and may not represent a complete record from that organization. tiZANidine (ZANAFLEX) 4 mg tablet Take 1 tablet (4 mg total) by mouth in the morning and 1 tablet (4 mg total) before bedtime. 020 Active fluticasone propionate (FLONASE) 50 mcg/actuation nasal sprayIndications: Seasonal allergic rhinitis, unspecified trigger Administer 2 sprays into each nostril in the morning. 16 g 6 022 Active ibuprofen (MOTRIN) 400 mg tablet Take 1 tablet (400 mg total) by mouth every 6 (six) hours as needed for pain. Active azelastine (ASTELIN) 137 mcg (0.1 %) nasal spray Administer 1 spray into each nostril in the morning and 1 spray before bedtime. Use in each nostril as directed. Active levalbuterol (XOPENEX) 1.25 mg/3 mL nebulizer solutionIndicatio ns:COPD, severe ([facility]-HCC) Inhale 3 mL by nebulization 4 (four) times a day as needed for wheezing. D: tachycardia and palpitations with albuterol 360 mL 6 023 Active albuterol (PROVENTIL HFA;VENTOLIN HFA) 90 mcg/actuation inhaler 023 Active gabapentin (NEURONTIN) 600 mg tablet Active metoprolol succinate XL (TOPROL XL) 25 mg 24 hr tabletIndications :Tachycardia Take 1 tablet (25 mg total) by mouth in the morning. 90 tablet 1 024 Active traZODone (DESYREL) 150 mg tabletIndications :Psychophysiologi tavia insomnia Take 1 tablet (150 mg total) by mouth nightly. 90 tablet 1 024 Active montelukast (SINGULAIR) 10 mg tabletIndications :COPD, severe (CMS-HCC),Seasona l allergic rhinitis, unspecified trigger Take 1 tablet (10 mg total) by mouth nightly. 90 tablet 1 024 Active levothyroxine (SYNTHROID, LEVOTHROID) 75 MCG tabletIndications :Acquired hypothyroidism TAKE 1 TABLET BY MOUTH IN THE MORNING 90 tablet 1 025 Active predniSONE (DELTASONE) 10 mg tabletIndications :COPD exacerbation (CMS-HCC) Take 1 tablet (10 mg total) by mouth See Admin Instructions. 1 tab 2x daily x3 days, 1 tab daily x3 days, 1/2 tablet daily x4 days 11 tablet 025 Active budesonide-formot Stacey (SYMBICORT) 80-4.5 mcg/actuation inhalerIndication s:COPD, severe (CMS-HCC) Inhale 2 puffs in the morning and 2 puffs before bedtime. 10.2 g 12 025 Active famotidine (PEPCID) 20 mg tabletIndications :Gastroesophageal reflux disease without esophagitis Take 1 tablet (20 mg total) by mouth in the morning. 90 tablet 1 025 Active famotidine (PEPCID) 20 mg tabletIndications :Gastroesophageal reflux disease without esophagitis Take 1 tablet (20 mg total) by mouth in the morning. 90 tablet 1 024 2024 Discontinued(R eorder) budesonide-formot Stacey (SYMBICORT) 80-4.5 mcg/actuation inhalerIndication s:COPD, severe (CMS-HCC) Inhale 2 puffs in the morning and 2 puffs before bedtime. 10.2 g 12 024 2024 Discontinued(R eorder) predniSONE (DELTASONE) 20 mg tabletIndications :COPD, severe (CMS-HCC) Take 1 tablet (20 mg total) by mouth See Admin Instructions. 1 tab 2x daily x3 days, 1 tab daily x3 days, 1/2 tablet daily x4 days 11 tablet 024 2024 Discontinued ceFUROxime (CEFTIN) 500 mg tablet Take 1 tablet (500 mg total) by mouth. 024 2024 Discontinued(T herapy completed) azithromycin (ZITHROMAX) 250 mg tabletIndications :COPD exacerbation (CMS-HCC) Take 2 tablets the first day, then 1 tablet daily for 4 days. 6 tablet 025 2024 traMADoL (ULTRAM) 50 mg tabletIndications :Radiculopathy, lumbosacral region Take 1 tablet (50 mg total) by mouth every 8 (eight) hours as needed for pain for up to 3 days. 9 tablet 025 2024 Active Problems Problem Noted Date Diagnosed Date Peripheral neuropathy 11/02/2023 Radiculopathy, lumbosacral region 11/02/2023 Cervical stenosis of spinal canal 08/02/2023 Overview (11/02/2023): She has neck and back pain due to osteoarthritis and stenosis. Cervical spine MRI 04/29/2021 revealed multilevel degenerative changes as described above causing varying degrees of neural foraminal narrowing and central canal stenosis and old compression fracture at T4 level. There is disc osteophyte complex effacing the ventral subarachnoid space causing severe neural foraminal narrowing of the left with mild neural foraminal narrowing on the left at C5-C6. She has responded to trigger injections in the past with greater than 50% improvement in symptoms. She did not tolerate Mobic trial due to heart palpitations. MRI of the cervical spine 06/11/22 revealed multilevel disc osteophyte most pronounced at C5-C6 causing mild to moderate spinal stenosis with severe left and moderate to severe right sided neuroforaminal narrowing. She was seen by pain management but left during her appointment and is not interested in going back at this time. She did not hear from [facility]. 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 The larger inferiorly measures about 19 mm There is a subtle hypodense masslike area in the lower portion of the right kidney sinus which does not look like a simple cyst. It measures about 15 mm. It is more impressive on the coronal images. It looks different than the typical expected appearance of the renal pyramids. There is some calcification near this area. Exact etiology is unclear. The possibility of a small renal neoplasm or focal pyelonephritis would be a consideration. Close follow-up is suggested. On the delayed images it looks like this partially fills in with contrast and may be associated with a dilated lower pole calyx. MRI may provide additional detail 06/06/18: MRI suggests the area in the right lower pole is likely a cyst. She has 2 benign left renal cyst. Recommendation was renal u/s in 1 year Panic disorder 09/24/2016 Generalized anxiety disorder 09/24/2016 Moderate episode of recurrent major depressive d isorder 09/24/2016 Encounters Date Type Department Care Team Description 07/03/2024 7:40 AM EDT Office Visit [facility] [address] [place] [place] [address] Bea Palumbo, EDGE SETTER-LEAD HANDLER COPD exacerbation (CMS-HCC) (Primary Dx); COPD, severe (CMS-HCC); Radiculopathy, lumbosacral region; Gastroesophageal reflux disease without esophagitis 07/03/2024 Travel 06/06/2024 Refill [facility] [address] [place] [address] Bea Palumbo, ALBERTINA-CHRISTIANO Acquired hypothyroidism from Last 3 Months Immunizations Immunization Administration Dates Next Due Influenza (IM) Preservative Free 11/23/2014 Influenza Vaccine, Quadrival ent, Adjuvanted 12/22/2022 Influenza, Im Trivalent Preservative 12/02/2012, 11/19/2011 Influenza, Injectable, quadr ivalent (PF) 12/09/2021,12/24/2020,11/17/2019,12/01,12/05/2017,01/22/2017 Pneumococcal Polysaccharide 05/02/2017 Tdap 01/06/2013 Family History Medical History Relation Name Comments Breast cancer Cousin Breast cancer Maternal Aunt Heart disease Mother Hypertension Mother Breast cancer Sister Heart disease Sister Hypertension Sister Relation Name Status Comments Cousin Maternal Aunt Mother Sister Social History Tobacco Use Types Packs/Day Years Used Date Smoking Tobacco: Every Day Cigarettes 1 20 Started: 09/07/2002; Last attempted to quit: 09/07/2022 Smokeless Tobacco: Never Tobacco Cessation:Ready to Q uit: Not Asked; Counseling Given: Not Answered Comments:4 a day Alcohol Use Standard Drinks/Week [...] on file Sexual Orientation Not on file Last Filed Vital Signs Vital Sign Reading [...] Mass Index 12.27 07/03/2024 7:51 AM EDT Plan of Treatment Upcoming Encounters Date Type Department Care Team (Late st Contact Info) Description 08/07/2024 9:00 AM EDT Office Visit [facility] [address] [place] [phone] Bea Palumbo, EDGE SETTER-LEAD HANDLER [address] [place] [address] Health Maintenance Due Date Last Done Comments Tobacco Counseling 1955 Zoster (Shingles) Vaccine (1 of 2) 06/20/2007 DTaP,Tdap and Td Vaccines (2 - Td or Tdap) 01/06/2023 01/06/2013 Mammogram 07/02/2023 07/01/2022, 02/21, 08/31/2017, Additional history exists COVID-19 Vaccine ( - 2023-2 5 season) 2023 02/23/2021, 08/14/2020, 06/27/2020 Influenza Vaccine 10/22/2024 12/22/2022, , 12/24/2020, Additional history exists Medicare Annual Wellness Visit 11/01/2024 0 11/02/2023, 12/22/2022, 12/09/2021 Adult BMI Follow Up Plan 07/03/2025 07/03/2024 Adult BMI Screening 07/03/2025 07/03/2024 Depression Screening 07/03/2025 07/03/2024 Fall Risk Screening 07/03/2025 07/03/2024 Tobacco Screening 07/03/2025 07/03/2024 Colonoscopy 05/11/2027 05/10/2017 Medical Devices Not on file Procedures Procedure Name Priority Date/Time Associated Diagnosis Comments MAMM SCREENING BILATERAL W CAD Routine 07/01/2022 8:49 AM EDT Encounter for screening mammogram for malignant neoplasm of breast COLONOSCOPY 05/10/2017 9:57 AM EDT from Last 3 Months or Most Recently Relevant to Health Maintenance Results * Mammography screening bilateral with CAD (07/01/2022 8:49 AM EDT) Anatomical Region Laterality Modality Breast Bilateral Mammography 07/01/2022 9:49 AM EDT Narrative 07/01/2022 9:53 AM EDT History: Screening mammogram Technique: Digital mammographic images of both breasts were obtained in CC and MLO projections. Computer-aided detection was utilized. Tomosynthesis was also performed. Comparison: 08/12/2017 Findings: Breast Density: The breasts are extremely dense, which lowers the sensitivity of mammography. Multiple benign calcifications are seen and are unchanged the previous examination There is no evidence of dominant mass lesion, clustered microcalcifications, or skin thickening in either breast to suggest the presence of malignancy. Impression: Both breasts negative for evidence of malignancy by digital mammography. A screening mammogram in one year is recommended. ACR Category: BIRADS 2 - Benign. Finalized by Jj Fong MD on 07/01/2022 9:53 AM 2 d MAMM 1 YR Procedure Note Jj Fong MD - 07/01/2022 History: Screening mammogram Technique: Digital mammographic images of both breasts were obtained in CCand MLO projections. Computer-aided detection was utilized.Tomosynthesis was also performed. Comparison: 08/12/2017 Findings: Breast Density: The breasts are extremely dense, which lowers thesensitivity of mammography. Multiple benign calcifications are seen and are unchanged the previousexamination There is no evidence of dominant mass lesion, clusteredmicrocalcifications, or skin thickening in either breast to suggest thepresence of malignancy. Impression: Both breasts negative for evidence of malignancy by digitalmammography. A screening mammogram in one year is recommended. ACR Category: BIRADS 2 - Benign. Finalized by Jj Fong MD on 07/01/2022 9:53 AM 2 d MAMM 1 YR Bea Palumbo EDGE SETTER-LEAD HANDLER IMG MAMMOGRAPHY [facility] Final Result * Colonoscopy (05/10/2017 9:57 AM EDT) 05/10/2017 9:57 AM EDT Narrative PM CARDIOVASCULAR - 05/10/2017 10:54 AM T [facility] Patient Name: Harmony Gee Procedure Date No Time: 05/10/2017 Date of : 1955 Admit Type: Outpatient Age: 61 Room: [place] [address] Gender: Female Note Status: Finalized Attending MD: Jose Swanson DO Procedure: Colonoscopy Indications: Weight loss Providers: Jose Swanson DO Medicines: General Anesthesia Complications: No immediate complications. Procedure: After I obtained informed consent, the scope was passed under direct vision. Throughout the procedure, the patient's blood pressure, pulse, and oxygen saturations were monitored continuously. The Olympus [id number] #[id number] adult colonoscope was introduced through the anus and advanced to the cecum, identified by appendiceal orifice and ileocecal valve. The colonoscopy was performed without difficulty. The patient tolerated the procedure well. The quality of the bowel preparation was good. Findings: The perianal exam findings include internal hemorrhoids that prolapse with straining, but spontaneously regress to the resting position (Grade II). A 5 mm polyp was found in the distal sigmoid colon. The polyp was sessile. The polyp was removed with a cold snare. Resection and retrieval were complete. The exam was otherwise without abnormality. Impression: - Internal hemorrhoids that prolapse with straining, but spontaneously regress to the resting position (Grade II) found on perianal exam. - One 5 mm polyp in the distal sigmoid colon, removed with a cold snare. Resected and retrieved. - The examination was otherwise normal. Recommendation: - Discharge patient to home. - High fiber diet for the rest of the patient's life. - Use FiberCon 2 tablets PO daily for 3 months. - Colace capsule(s) orally 100 mg TID for 2 months. Procedure Code(s): --- Professional --- 58515, Colonoscopy, flexible; with removal of tumor(s), polyp(s), or other lesion(s) by snare technique Diagnosis Code(s): --- Professional --- K64.1, Second degree hemorrhoids D12.5, Benign neoplasm of sigmoid colon R63.4, Abnormal weight loss CPT copyright 2016 [employer]. All rights reserved. The codes documented in this report are preliminary and upon consumer analyst review may be revised to meet current compliance requirements. DO Jose Elizalde DO 05/10/2017 10:54:34 AM Number of Addenda: 0 Note Initiated On: 05/10/2017 9:57 AM Procedure Note Jose Swanson DO - 05/10/2017 [facility] Patient Name: Harmony Gee Procedure Date No Time: 05/10/2017 Date of : 1955 Admit Type: Outpatient Age: 61 Room: [place] [address] Gender: Female Note Status: Finalized Attending MD: Jose Swanson DO Procedure: Colonoscopy Indications: Weight loss Providers: Jose Swanson DO Medicines: General Anesthesia Complications: No immediate complications. Procedure: After I obtained informed consent, the scope waspassed under direct vision. Throughout the procedure, the patient's blood pressure, pulse, and oxygensaturations were monitored continuously. The Olympus [id number] #[id number] adult colonoscope was introduced through the anus and advanced to the cecum, identified by appendiceal orifice and ileocecal valve. Thecolonoscopy was performed without difficulty. The patienttolerated the procedure well. The quality of the bowelpreparation was good. Findings: The perianal exam findings include internal hemorrhoids that prolapse with straining, but spontaneously regress to the resting position(Grade II). A 5 mm polyp was found in the distal sigmoid colon. The polyp was sessile. The polyp was removed with a cold snare. Resection and retrieval were complete. The exam was otherwise without abnormality. Impression: - Internal hemorrhoids that prolapse with straining,but spontaneously regress to the resting position (GradeII) found on perianal exam. - One 5 mm polyp in the distal sigmoid colon, removed with a cold snare. Resected and retrieved. - The examination was otherwise normal. Recommendation: - Discharge patient to home. - High fiber diet for the rest of the patient'slife. - Use FiberCon 2 tablets PO daily for 3 months. - Colace capsule(s) orally 100 mg TID for 2 months. Procedure Code(s): --- Professional --- 57553, Colonoscopy, flexible; with removal oftumor(s), polyp(s), or other lesion(s) by snare technique Diagnosis Code(s): --- Professional --- K64.1, Second degree hemorrhoids D12.5, Benign neoplasm of sigmoid colon R63.4, Abnormal weight loss CPT copyright 2016 [employer]. All rights reserved. The codes documented in this report are preliminary and upon consumer analyst reviewmay be revised to meet current compliance requirements. DO Jose Elizalde DO 05/10/2017 10:54:34 AM Number of Addenda: 0 Note Initiated On: 05/10/2017 9:57 AM Jose Swanson DO GI PROCEDURE ORDERABLES Fin al Result PM CARDIOVASCULAR from Last 3 Months or Most Recently Relevant to Health Maintenance Insurance MEDICAID [place] [address] [employer] [place] Care Teams Land Leases And Rentals Manager Relationship Specialty Start Date End Date Bea Palumbo, ALBERTINA-CHRISTIANO [address], [place] [address] PCP - General Family Medicine 09/21/21
--- OUTSIDE RECORDS SUMMARY | 2024-07-13 19:21 | XMS_ITS | Clinical Summary ---
Author Organization [facility] Address [address] [place] [address] Care Team Providers Care Bottle Capping Machine Operator Name Role Phone Bea Palumbo Unavailable [phone] Allergies Active Allergy Reactions Criticality Noted Date Comments Cephalexin Hives 03/21/2018 Codeine 09/08/2016 Other Reaction(s): Unknown Makes her high , hallucinations Latex 04/29/2017 Other Reaction(s): Unknown blisters Medications albuterol HFA 90 mcg/act inhaler INHALE 2 PUFFS BY MOUTH EVERY 4 HOURS IF NEEDED FOR SHORTNESS OF BREATH 05/05/19 23 Active alendronate (Fosamax) 35 MG tablet take 1 tablet by mouth every 7 days take IN THE MORNING WITH WATE... (REFER TO PRESCRIPTION NOTES). Active amitriptyline (Elavil) 25 MG tablet take 1/2 to 1 tablet by mouth at bedtime 01/19/20 22 Active azelastine (Astelin) 0.1 % nasal spray Administer 1 spray into affected nostril(s) in the morning and 1 spray in the evening. Active Breztri Aerosphere 160-9-4.8 MCG/ACT aerosol inhale 2 puffs by mouth every morning and at bedtime Active Symbicort 160-4.5 MCG/ACT inhaler Inhale 2 puffs in the morning and 2 puffs before bedtime. Rinse mouth after use.. 06/26/19 23 Active DULoxetine (Cymbalta) [address] capsule Take 30 mg by mouth in the morning. Active ibuprofen 400 MG tablet Take 400 mg by mouth every 6 (six) hours if needed. Active levalbuterol (Xopenex) 1.25 MG/3ML nebulizer solution inhale contents of 1 vial in nebulizer four times a day if needed for wheezing Active levothyroxine (Synthroid, Levoxyl) 88 MCG tablet Take 88 mcg by mouth in the morning. Active metoprolol succinate XL (Toprol-XL) 25 MG 24 hr tablet Take 1 tablet by mouth in the morning. 06/22/19 23 Active montelukast (Singulair) 10 MG tablet Take 10 mg by mouth in the morning. Active traZODone (Desyrel) 150 MG tablet Take 1 tablet by mouth at bedtime. 09/01/19 23 Active baclofen (Lioresal) 10 MG tabletIndications :Muscle spasm take 1 tablet by mouth four times a day 120 tablet 2 07/19/19 24 Active gabapentin (Neurontin) 600 MG tabletIndications :Radiculopathy, lumbosacral region,Cervical radiculopathy TAKE 1 TABLET BY MOUTH IN THE MORNING, then TAKE 1/2 (ONE-HALF) OF A TABLET BY MOUTH IN THE AFTERNOON, then TAKE 1 TABLET BY MOUTH AT BEDTIME 75 tablet 2 04/10/19 25 Active tiZANidine (Zanaflex) 4 MG tabletIndications :Muscle spasm TAKE 1 & 1/2 (ONE AND ONE-HALF) TABLETS to 2 (TWO) TABLETS AT BEDTIME 60 tablet 05/10/19 25 Active Active Problems Problem Noted Date Diagnosed Date Pars defect with spondylolisthesis 08/02/2023 Paresthesia of skin 08/02/2023 Overview (08/02/2023): She has numbness to BUE and BLE in setting of diabetes which she could have a underlying neuropathy now. This has been present for multiple years worsening in the past few months. She is also experiencing muscle cramps in her lower extremity and her lower back which disrupts her sleep. She did not have EMGs completed but willing to re-try. Localized osteoarthritis of lumbar spine 024 Cervical stenosis of spinal canal 08/02/2023 Overview (08/02/2023): She has neck and back pain due [...] this time. She did not hear from [facility]. Lumbar and sacral osteoarthritis 08/02/2023 Insomnia 08/02/2023 Overview (08/02/2023): the patient notes that she continues to experience insomnia. She states that she has trouble falling to sleep and staying asleep. She sleeps for an hour and then cannot fall back to sleep. She currently takes trazodone with no benefit, per her PCP. She has not had a sleep study and declines testing. She had side effects with amitriptyline. Myalgia Plbqqss-Gxmiq-Pdjyj disease Malaise and fatigue Peripheral neuropathy Degenerative disc disease, lumbar Muscle spasm Numbness Degenerative disc disease, cervical Radiculopathy, lumbosacral region Encounters Date Type Department Care Team Description 05/09/2024 Refill [facility] [address] [place] [phone] Yvrose Quijano PA Muscle spasm from Last 3 Months Family History Medical History Relation Name Comments Hypertension Brother Thyroid disease Brother Bone cancer Father Hypertension Mother Rheum arthritis Mother Hypertension Sister Relation Name Status Comments Brother Father Mother Sister Social History Tobacco Use Types Packs/Day Years Used Date Smoking Tobacco: Every Day Cigarettes Smokeless Tobacco: Never Alcohol Use Standard Drinks/Week Comments Never 0 (1 standard drink = 0.6 oz pur e alcohol) caffeine: 2-3 cups per day Comments Unknown Sex and Gender Information Value Date Recorded Sex Assigned at Not on file Legal Sex Female 7:11 PM EDT Gender Identity Not on file Sexual Orientation Not on file Last Filed Vital Signs Vital Sign Reading Time Taken Comments Blood Pressure 140/82 08/02/2023 8:43 AM EDT Pulse 109 08/02/2023 8:43 AM EDT Temperature - - Respiratory Rate 16 08/02/2023 8:43 AM EDT Oxygen Saturation 97% 08/02/2023 8:43 AM EDT Inhaled Oxygen Concentration - - Weight 43.1 kg (95 lb) 08/02/2023 8:43 AM EDT Height 167.6 cm (5' 6 ) 08/02/2023 8:43 AM EDT Body Mass Index 15.33 08/02/2023 8:43 AM EDT Plan of Treatment Health Maintenance Due Date Last Done Comments CT Colonography 1955 Colonoscopy 1955 Colorectal Cancer Screening 1955 FIT-DNA 1955 FIT 1955 FOBT 1955 Sigmoidoscopy 1955 Pneumococcal Vaccine: 65+ Ye ars (2 of 2 - PCV) 05/02/2018 05/02/2017 Mammogram 07/02/2023 07/01/2022, 02/21, 08/31/2017, Additional history exists Influenza Vaccine (Season Ended) 2024 12/22/2022, 12/09/2021, 12/24/2020, Additional history exists Insurance MEDICAID [place] [employer] MEDICARE Care Teams Bottle Capping Machine Operator Relationship Specialty Start Date End Date Bea Palumbo CRNP Referring Physician Nurse Practitioner 08/02/23
--- OUTSIDE RECORDS SUMMARY | 2024-07-13 19:21 | XMS_ITS | Encounter Summary ---
Author Organization [facility] [employer] Address [id number] [address] [place] [address] Care Team Providers Care Newspaper Photographer Name Role Phone Bea Palumbo STRAPPER-CORK INSULATION SETTER Primary Care Provid er Encounter Details Date Type Department Care Team (Late Contact Info) Description 10/14/2023 Orders Only [facility] Internal Medicine - Family Medicine [address] [place] [phone] Ref Prov, [place] [address] Social History Tobacco Use Types Packs/Day Years [...] Medicine - Family Medicine [address] [place] [address] Bea Palumbo APRN-CNP [address] [place] [phone] documented as of this encounter Procedures Procedure Name Priority Date/Time Associated Diagnosis Comments XR CHEST 1 VW Routine 10/13/2023 11:09 AM EDT documented in this encounter Results * X-ray chest 1 view (10/13/2023 11:09 AM EDT) Anatomical Region Laterality Modality Body, Chest N/A Computed Radiogr aphy us Not In System Ref Prov IMG [...] documented as of this encounter Care Teams Newspaper Photographer Relationship Specialty Start Date End Date Bea Palumbo APRN-CNP [address] [place] [phone] PCP - General Family Medicine 09/21/21 documented as of this encounter
--- OUTSIDE RECORDS SUMMARY | 2024-07-13 19:22 | XMS_ITS | Encounter Summary ---
Author Organization [employer] Address [id number] [address] [place] [address] Care Team Providers Care [facility] Name Role Phone Bea Palumbo ESCROW SECRETARY-PATIENT CASE COORDINATOR Primary Care Provid er Reason for Visit * Reason Comments Med Refill Encounter Details Date Type Department Care Team (Late Contact Info) Description 03/04/2022 Refill [facility] Family Medicine [address] [facility] [place] [phone] Bea Palumbo, ESCROW SECRETARY-PATIENT CASE COORDINATOR [address] [place] [phone] Psychophysiological insomnia Social History Tobacco Use Types Packs/Day Years Used Date Smoking Tobacco: Every Day Cigarettes Smokeless Tobacco: Never Comments:4 a day Alcohol Use Standard Drinks/Week Comments No 0 (1 standard drink = 0.6 oz pur e alcohol) PHQ-2 Answer Date Recorded Total Score 0 12/09/2021 Childcare Answer Date Recorded Childcare Unknown 07/21/2018 Employment Answer Date Recorded Employment Unknown 07/21/2018 Purpose - Life Answer Date Recorded Purpose [...] Medicine - Family Medicine [address] [place] [phone] Bea Palumbo, ESCROW SECRETARY-PATIENT CASE COORDINATOR [address] [place] [address] documented as of this encounter Visit Diagnoses Diagnosis Psychophysiological insomnia Persistent disorder of initiating or maintaining sleep documented in this encounter Additional Health Concerns Assessment Noted Time PHQ-9 Depression Total Score: 0 12/10/19 7:00 AM EDT A Body Mass Index follow-up plan has been documented for the patient 12/09/2021 12:22 PM EDT documented as of this encounter Care Teams [facility] Relationship Specialty Start Date End Date Bea Palumbo APRN-PATIENT CASE COORDINATOR [address] [facility] [place] [address] PCP - General Family Medicine 09/21/21 documented as of this encounter
--- OUTSIDE RECORDS SUMMARY | 2024-07-13 19:22 | XMS_ITS | Encounter Summary ---
Author Organization [employer] s tem Address [id number] [address] [place] [address] Care Team Providers Care Model Maker Scale Name Role Phone Bea Palumbo RN INVASIVE-WELDING PANTOGRAPH OPERATOR Primary Care Provid er Encounter Details Date Type Department Care Team ([facility] Contact Info) Description 10/15/2021 Orders Only [facility] Family Medicine [address] [place] [address] Mara Arredondo CMA COPD, severe ([facility]) Social History Tobacco Use Types Packs/Day Years Used Date Smoking Tobacco: Every Day Cigarettes Smokeless Tobacco: Never Comments:4 a day Alcohol Use Standard Drinks/Week Comments No 0 (1 standard drink = 0.6 oz pur e alcohol) Childcare Answer Date Recorded Childcare Unknown 07/21/2018 Employment Answer Date Recorded Employment Unknown 07/21/2018 Purpose - Life Answer Date Recorded Purpose and direction in life Unknown Comments No Sex and Gender Information Value Date Recorded Sex Assigned at Not on file Legal Sex Female 11:37 AM EDT Gender Identity Not on file Sexual Orientation Not on file COVID-19 Exposure Response Date Recorded In the last month, have you been in contact with someone who was confirmed or suspected to have Coronavirus / COVID-19? No / Unsure 09/29/2021 8:34 AM EDT documented as of this encounter Plan of Treatment Upcoming Encounters Date Type Department Care Team (Late Contact Info) Description 08/07/2024 9:00 AM EDT Office Visit [facility] Internal Medicine - Family Medicine [address] [place] [phone] Bea Palumbo, RN INVASIVE-WELDING PANTOGRAPH OPERATOR [address] [place] [phone] documented as of this encounter Procedures Procedure Name Priority Date/Time Associated Diagnosis Comments AMB REFERRAL TO PULMONOLOGY Routine 10/15/2021 10:37 AM EDT COPD, severe (CMS-HCC) documented in this encounter Results * Ambulatory referral to Pulmonology (10/15/2021 10:37 AM EDT) us Bea BALBUENA OUTPATIENT REFERRAL ORDERABLES Final Result MANUALLY TRANSCRIBED RESULTS documented in this encounter Visit Diagnoses Diagnosis COPD, severe (CMS-HCC) documented in this encounter Additional Health Concerns Assessment Noted Time A Body Mass Index follow-up plan has been documented for the patient 09/30/2021 6:06 AM EDT documented as of this encounter Care Teams Model Maker Scale Relationship Specialty Start Date End Date Bea Palumbo APRN-CNP [address] [place] [phone] PCP - General Family Medicine 09/21/21 documented as of this encounter
--- OUTSIDE RECORDS SUMMARY | 2024-07-13 19:22 | XMS_ITS | Encounter Summary ---
Author Organization [facility] [email or web address] [facility] [employer] [facility] tem Address [id number] [address] [place] [address] Care Team Providers Care Sales Ledger Clerk Name Role Phone Bea Palumbo TREE CUTTER-FIELD CROP FARM WORKER Primary Care Provid er Encounter Details Date Type Department Care Team (Late Contact Info) Description 08/16/2022 Orders Only [facility] [address] [place] [phone] Yvrose Quijano, PALilyC [address] [place] [address] Social History Tobacco Use Types Packs/Day Years Used Date Smoking Tobacco: Every Day Cigarettes Smokeless Tobacco: Never Comments:4 a day Alcohol Use Standard Drinks/Week Comments No 0 (1 standard drink = 0.6 oz pur e alcohol) PHQ-2 Answer Date Recorded Total Score 0 06/21/2022 Childcare Answer Date Recorded Childcare Unknown 07/21/2018 [...] 9:00 AM EDT Office Visit [facility] Internal Medicine - Family Medicine [address] [place] [address] Bea Palumbo, TREE CUTTER-FIELD CROP FARM WORKER [address] [place] [address] documented as of this encounter Procedures Procedure Name Priority Date/Time Associated Diagnosis Comments NERVE CONDUCTION STUDY Routine 02/02/2021 documented in this encounter Results * Nerve Conduction Study (NCV) (02/02/2021) us Yvrose Quijano PA-C NEUROLOGY ORDERABLES Final Resu lt MANUALLY TRANSCRIBED RESULTS documented in this encounter Visit Diagnoses Not on filedocumented in this encounter Additional Health Concerns Assessment Noted Time PHQ-9 Depression Total Score: 0 06/22/19 8:06 AM EDT A Body Mass Index follow-up plan has been documented for the patient 07/01/2022 7:06 AM EDT documented as of this encounter Care Teams Sales Ledger Clerk Relationship Specialty Start Date End Date Bea Palumbo, TREE CUTTER-FIELD CROP FARM WORKER [address] [place] [phone] PCP - General Family Medicine 09/21/21 documented as of this encounter
--- OUTSIDE RECORDS SUMMARY | 2024-07-13 19:22 | XMS_ITS | Encounter Summary ---
Author Organization [employer] Address [id number] [address] [place] [address] Care Team Providers Care Glue Mounter Operator Name Role Phone Bea Palumbo CONTROL TECHNICIAN-COUNTER SALES PERSON Primary Care Provid er Encounter Details Date Type Department Care Team (Late st Contact Info) Description 05/18/2022 Telephone [facility] Internal [facility] - Family Medicine [address] [facility] [place] [phone] Lisa Raymond CMA Social History Tobacco Use Types Packs/Day [...] encounter Miscellaneous Notes * Telephone Encounter - Lisa Raymond CMA - 05/18/2022 8:50 AM EDT Pt called to reschedule her apt in May due to you are off at the time of her apt and she went on about how she has something going on with her ear and she wanted to see you for both way sooner thanthe beginning of June. Are you willing to see her for both? * Telephone Encounter - ESHA Michel - 05/18/2022 8:50 AM EDT See messages from last week. I believe Mara spoke with her. Had different complaints and was informed to go to ER, I was under the assumption she christy to [place]. She does have memory issues. I can see her only for her ear this week as sick visit. I do believe she wants to wait till June for ear problems. The other visit is routine follow up for chronic disease (30 minute) * Telephone Encounter - Lisa Raymond CMA - 05/18/2022 8:50 AM EDT Isha, I did offer the patient to come in for just the ear problem and she did not want to do that and got upset and stated she would continue to be sick and told me to have a blessed day. She wanted aall in one apt is what she wanted. * Telephone Encounter - ESHA Michel - 05/18/2022 8:50 AM EDT I understand. She was given choices. Can you inquire if she was seen at [facility] last week? * Telephone Encounter - Lisa Raymond CMA - 05/18/2022 8:50 AM EDT Called [facility] and waiting for them to call me back * Telephone Encounter - Lisa Raymond CMA - 05/18/2022 8:50 AM EDT Sending records documented in this encounter Plan of Treatment Upcoming Encounters Date Type Department Care Team (Late st Contact Info) Description 08/07/2024 9:00 AM EDT Office Visit [facility] Internal Medicine - Family Medicine [address] [place] [address] Bea Palumbo APRN-COUNTER SALES PERSON [address] [place] [address] documented as of this encounter Visit Diagnoses Not on filedocumented in this encounter Additional Health Concerns Assessment Noted Time PHQ-9 Depression Total Score: 0 12/10/19 7:00 AM EDT A Body Mass Index follow-up plan has been documented for the patient 12/09/2021 12:22 PM EDT documented as of this encounter Care Teams Glue Mounter Operator Relationship Specialty Start Date End Date Bea Palumbo APRN-COUNTER SALES PERSON [address] [place] [address] PCP - General Family Medicine 09/21/21 documented as of this encounter
--- OUTSIDE RECORDS SUMMARY | 2024-07-13 19:22 | XMS_ITS | Encounter Summary ---
Author Organization [employer] Address [id number] [address] [place] [address] Care Team Providers Care Food Safety Specialist Name Role Phone Bea Palumbo BILLET SHEARER-FLUOROSCOPE OPERATOR Primary Care Provid er Reason for Visit * Reason Comments Med Refill Encounter Details Date Type Department Care Team (Late Contact Info) Description 10/21/2021 Refill [facility] [address] [facility] [place] [phone] Bea Palumbo, BILLET SHEARER-FLUOROSCOPE OPERATOR [address] [place] [address] COPD, severe ([facility]) (Primary Dx); Seasonal allergic rhinitis, unspecified trigger Social History Tobacco Use Types Packs/Day Years [...] Medicine - Family Medicine [address] [place] [address] Bea Palumbo, BILLET SHEARER-FLUOROSCOPE OPERATOR [address] [place] [address] documented as of this encounter Visit Diagnoses Diagnosis COPD, severe ([facility])- Primary Seasonal allergic rhinitis, unspecified trigger documented in this encounter Additional Health Concerns Assessment Noted Time A Body Mass Index follow-up plan has been documented for the patient 09/30/2021 6:06 AM EDT documented as of this encounter Care Teams Food Safety Specialist Relationship Specialty Start Date End Date Bea Palumbo, BILLET SHEARER-FLUOROSCOPE OPERATOR [address] [place] [address] PCP - General Family Medicine 09/21/21 documented as of this encounter
[2024-07-13 20:07] LABS: Basophils Absolute Auto 0.1 10^3/uL (0.0-0.1); Basophils Percent Auto 0.5 % (0.2-2.0); Eosinophils Percent Auto 0.2 % (0.9-7.0); Hematocrit 46.5 % (36.0-48.0); Hemoglobin 15.2 g/dL (12.0-16.0); Immature Granulocytes Abs Auto 0.38 10^3/uL (0.00-0.03); Immature Granulocytes Pct Auto 2.5 % (0.0-0.5); Lymphocytes Absolute Auto 0.8 10^3/uL (1.2-3.8); Lymphocytes Percent Auto 5.6 % (20.5-60.0); Mean Corpuscular HGB Conc 32.7 g/dL (29.9-35.2); Mean Corpuscular Hemoglobin 30.2 pg (26.7-34.0); Mean Corpuscular Volume 92.4 fL (81.0-99.0); Mean Platelet Volume 8.9 fL (9.5-13.5); Monocytes Percent Auto 6.5 % (1.7-12.0); Neutrophils Absolute Auto 12.8 10^3/uL (1.4-6.5); Neutrophils Percent Auto 84.7 % (43.0-75.0); Platelet Count 392 10^3/uL (150-450); Red Blood Count 5.03 10^6/uL (4.20-5.40); Red Cell Distribution Width 14.1 % (11.0-15.0); White Blood Count 15.1 10^3/uL (4.0-11.0)
[2024-07-13 20:09] LABS: Ammonia 27 umol/L (11-32)
[2024-07-13] MEDS: 0.9 % SODIUM CHLORIDE 1,000 ML 999 ML IV (20:10)
[2024-07-13 20:14] LABS: Acetone SMALL (NEGATIVE); Erythrocyte Sedimentation Rate 11 mm/hr (<=30)
[2024-07-13 20:16] LABS: Lactate/Lactic Acid 1.4 mmol/L (0.4-2.0)
[2024-07-13 20:23] LABS: Alanine Aminotransferase 25 U/L (14-59); Albumin Level 3.3 g/dL (3.4-5.0); Alkaline Phosphatase 131 U/L (46-116); Anion Gap 11.3; Aspartate Amino Transferase 42 U/L (15-37); BUN Creatinine Ratio 26.5; Bilirubin Total 0.9 mg/dL (0.2-1.0); C Reactive Protein 0.51 mg/dL (<=0.50); Calcium 9.2 mg/dL (8.5-10.1); Carbon Dioxide 30.4 mmol/L (21.0-32.0); Chloride 100 mmol/L (98-107); Estimated GFR (African America >60 (>=60 mL/min/1.73m^2); Estimated GFR (Non-African Ame >60 (>=60 mL/min/1.73m^2); Ethanol <3 mg/dL; Globulin 3.3 g/dL; Glucose 89 mg/dL (74-106); Magnesium 2.3 mg/dL (1.8-2.4); Phosphorus 3.9 mg/dL (2.6-4.7); Potassium 4.7 mmol/L (3.5-5.1); Salicylate <2.8 mg/dL (<=19.9); Sodium 137 mmol/L (136-145); Thyroid Stimulating Hormone 2.263 uIU/mL (0.358-3.740); Total Protein 6.6 g/dL (6.4-8.2)
[2024-07-13 20:27] LABS: Bilirubin Urine SMALL (NEGATIVE); Blood Urine MODERATE (NEGATIVE); Clarity Urine SL CLOUDY (CLEAR); Color Urine YELLOW (YELLOW); Glucose Urine UA NEGATIVE (NEGATIVE); Ketones Urine >=80 mg/dL (NEGATIVE); Leukocyte Esterase Urine SMALL (NEGATIVE); Nitrite Urine NEGATIVE (NEGATIVE); Protein Urine 100 mg/dL (NEG/TRACE); Specific Gravity Urine 1.025 (1.005-1.025)
[2024-07-13] MEDS: LORAZEPAM 2 MG/ML VIAL 0.5 MG IV (20:30)
[2024-07-13 20:39] LABS: Acetaminophen <2.0 ug/mL (10.0-30.0)
[2024-07-13 20:41] LABS: Troponin I High Sensitivity 150.6 pg/mL (4.0-51.3)
[2024-07-13 20:46] LABS: Bacteria Urine SMALL #/HPF (NONE SEEN); Cast Seen? NONE SEEN #/LPF (NONE SEEN); Crystals Seen? None Seen #/HPF (None Seen); Mucus Urine LARGE (NONE SEEN); RBC Urine 0-2 #/HPF (0-2); Squamous Epithelial Cell Urine FEW #/LPF (NONE/RARE)
[2024-07-13 20:47] LABS: Urine Culture Indicated YES-FRMC
[2024-07-13] MEDS: CEFTRIAXONE 1,000 MG in 0.9 % SODIUM CHLORIDE 50 ML 100 MG IV (21:27)
[2024-07-13 21:29] LABS: Internal Control Within Normal Limits; SARS-CoV-2 Ag NEGATIVE (NEGATIVE)
[2024-07-13] MEDS: LORAZEPAM 2 MG/ML VIAL 1 MG IV (21:50)
[2024-07-13 22:08] LABS: Creatine Kinase MB 3.96 ng/mL (<=3.60)
[2024-07-13 22:20] LABS: INR 1.15; Partial Thromboplastin Time 27.3 sec (22.3-36.2)
[2024-07-13] MEDS: DILTIAZEM HCL 25 MG/5 ML VIAL 20 MG IV (22:44)
[2024-07-13] MEDS: HEPARIN SODIUM (PORCINE) 5,000 UNIT/ML VIAL 2100 UNIT IV (22:48)
[2024-07-13] MEDS: HEPARIN SODIUM,PORCINE/D5W 25,000 UNIT/500 ML IV.SOLN 8.001 UNIT IV (22:48)
[2024-07-13] MEDS: 0.9 % SODIUM CHLORIDE 1,000 ML 250 ML IV (22:54)
[2024-07-15 02:37] LABS: A. calcoaceticus-baumannii Cpx NOT DETECTED (NOT DETECTE); Bacteroides fragilis NOT DETECTED (NOT DETECTE); Candida albicans NOT DETECTED (NOT DETECTE); Candida auris NOT DETECTED (NOT DETECTE); Enterobacter cloacae complex NOT DETECTED (NOT DETECTE); Enterobacterales NOT DETECTED (NOT DETECTE); Enterococcus faecalis NOT DETECTED (NOT DETECTE); Enterococcus faecium NOT DETECTED (NOT DETECTE); Haemophilus influenzae NOT DETECTED (NOT DETECTE); Klebsiella aerogenes NOT DETECTED (NOT DETECTE); Klebsiella pneumoniae group NOT DETECTED (NOT DETECTE); Listeria monocytogenes NOT DETECTED (NOT DETECTE); Neisseria meningitidis NOT DETECTED (NOT DETECTE); Proteus spp. NOT DETECTED (NOT DETECTE); Pseudomonas aeruginosa NOT DETECTED (NOT DETECTE); Salmonella spp. NOT DETECTED (NOT DETECTE); Serratia marcescens NOT DETECTED (NOT DETECTE); Staphylococcus epidermidis NOT DETECTED (NOT DETECTE); Staphylococcus lugdunensis NOT DETECTED (NOT DETECTE); Staphylococcus spp. NOT DETECTED (NOT DETECTE); Stenotrophomonas maltophilia NOT DETECTED (NOT DETECTE); Streptococcus agalactiae NOT DETECTED (NOT DETECTE); Streptococcus pneumoniae NOT DETECTED (NOT DETECTE); Streptococcus pyogenes NOT DETECTED (NOT DETECTE); Streptococcus spp. NOT DETECTED (NOT DETECTE)
[2024-07-15 02:38] LABS: Candida glabrata NOT DETECTED (NOT DETECTE); Candida krusei NOT DETECTED (NOT DETECTE); Candida parapsilosis NOT DETECTED (NOT DETECTE); Candida tropicalis NOT DETECTED (NOT DETECTE); Cryptococcus neoformans/gattii NOT DETECTED (NOT DETECTE)
[2024-07-15 04:40] LABS: Source BLOOD
== END 2024-07-14 01:00 | disposition short-term general hospital (02) ==
PROVIDERS: Emergency Provider Emergency Medicine; PCP Nurse Practitioner
DX: I21.4 Non-ST elevation (NSTEMI) myocardial infarction (principal); I48.91 Unspecified atrial fibrillation; N39.0 Urinary tract infection, site not specified; F17.210 Nicotine dependence, cigarettes, uncomplicated; R41.82 Altered mental status, unspecified; Z79.899 Other long term (current) drug therapy
CPT/HCPCS: 36415; 51702; 70450; 71045; 80053; 80179; 80320; 80329; 81001; 82009; 82140; 82553; 83605; 83735; 83880; 84100; 84443; 84484; 85025; 85610; 85652; 85730; 86140; 87040; 87077; 87086; 87150; 87811; 93005; 96361; 96365; 96366; 96367; 96375; 96376; 99285; J0696; J1644; J2060